=== PATIENT | female | born 1935 | race Caucasian/White ===

== ENCOUNTER 2019-11-19 14:08 | Outpatient (CLI) | payer MEDICARE, OTHER, SELFPAY ==
[2019-11-19 14:27] LABS: Basophils Percent Auto 0.3 % (0.2-1.2); Eosinophils Percent Auto 0.6 % (0-4.4); Hematocrit 36.8 % (37.0-47.0); Hemoglobin 12.4 g/dL (12.0-15.0); Immature Granulocyte Absolute 0.01 K/mm3 (0.00-0.031); Immature Granulocyte Percent A 0.2 % (0-0.5); Lymphocytes Absolute Auto 1.56 K/mm3 (0.9-3.2); Lymphocytes Percent Auto 24.5 % (18.3-44.2); Mean Corpuscular HGB Conc 33.7 g/dl (32-36); Mean Corpuscular Hemoglobin 31.6 pg (26-34); Mean Corpuscular Volume 93.9 fl (80-100); Mean Platelet Volume 8.9 fl (7.4-10.4); Monocytes Absolute Auto 0.4 K/mm3 (0.1-0.6); Monocytes Percent Auto 5.5 % (2.6-8.5); Neutrophils Absolute Auto 4.4 K/mm3 (1.3-6.7); Neutrophils Percent Auto 68.9 % (45.5-73.1); Platelet Count Result 179 k/mm3 (150-375); Red Blood Count 3.92 M/mm3 (4.2-5.4); Red Cell Distribution Width 12.6 % (11.5-14.5); White Blood Count 6.4 K/mm3 (4.5-10.0)
[2019-11-19 14:43] LABS: Alanine Aminotransferase 33 U/L (4-35); Albumin Level 4.2 g/dL (3.5-5.1); Alkaline Phosphatase 52 U/L (38-126); Aspartate Amino Transferase 43 U/L (14-36); Bilirubin,Total 0.5 mg/dL (0.2-1.3); Blood Urea Nitrogen 16 mg/dL (7-17); Calcium 8.9 mg/dL (8.4-10.2); Carbon Dioxide 23 mmol/L (22-30); Chloride 97 mmol/L (98-107); Estimated Glomerular Filt Rate 53; Glucose 160 mg/dL (65-105); Sodium 135 mmol/L (137-145)
== END 2019-11-19 14:09 | disposition home or self-care (01) ==
PROVIDERS: PCP Family Medicine; Visit Provider Physician Assistant
DX: E03.9 Hypothyroidism, unspecified (principal); R19.7 Diarrhea, unspecified; R53.83 Other fatigue; H40.1131 Primary open-angle glaucoma, bilateral, mild stage; E09.9 Drug or chemical induced diabetes mellitus without complications; T38.0X5A Adverse effect of glucocorticoids and synthetic analogues, initial encounter
CPT/HCPCS: 36415; 80053; 84443; 85025

== ENCOUNTER 2019-11-28 11:44 | Outpatient (CLI) | payer MEDICARE, OTHER, SELFPAY ==
[2019-11-28 12:48] LABS: Alanine Aminotransferase 34 U/L (4-35); Albumin Level 4.4 g/dL (3.5-5.1); Alkaline Phosphatase 60 U/L (38-126); Aspartate Amino Transferase 36 U/L (14-36); Bilirubin,Total 0.5 mg/dL (0.2-1.3); Blood Urea Nitrogen 22 mg/dL (7-17); Calcium 9.1 mg/dL (8.4-10.2); Carbon Dioxide 29 mmol/L (22-30); Chloride 96 mmol/L (98-107); Estimated Glomerular Filt Rate 53; Glucose 96 mg/dL (65-105); Potassium 4.6 mmol/L (3.4-5.0); Sodium 133 mmol/L (137-145)
[2019-11-28 12:59] LABS: Hemoglobin A1C 6.1 % (<5.7)
[2019-11-28 13:19] LABS: Thyroid Stimulating Hormone 0.385 uIU/mL (0.465-4.680)
== END 2019-11-28 11:45 | disposition home or self-care (01) ==
PROVIDERS: PCP Family Medicine; Visit Provider Physician Assistant
DX: E09.9 Drug or chemical induced diabetes mellitus without complications (principal); T38.0X5A Adverse effect of glucocorticoids and synthetic analogues, initial encounter; I10 Essential (primary) hypertension; E03.9 Hypothyroidism, unspecified
CPT/HCPCS: 36415; 80053; 83036; 84443

== ENCOUNTER 2021-04-06 11:12 | Outpatient (CLI) | payer MEDICARE, OTHER, SELFPAY ==
--- NOTE | ~2021-04-06 | XR_ITS ---
XR hip RT min 2V DATE: 04/06/2021 11:30 INDICATION: Fell on right hip last month. Right hip pain. TECHNIQUE: AP and lateral views of right hip COMPARISON: None FINDINGS: There is an intramedullary ade of the femoral shaft with 2 interlocking proximal screws and one distal interlocking screw. There is a healed fracture of the proximal shaft of the left femur. T here are some chronic corticated bone fragments at the lateral aspect of the right hip. No recent fracture or dislocation. There is severe osteoarthritis at the right hip joint. The pubic symphysis and sacroiliac joints are intact. Femoral artery calcification. IMPRESSION: Status post ORIF proximal right femoral shaft fracture by means of an intramedullary ade and proximal and distal interlocking screws Severe right hip osteoarthritis Reviewed, dictated and finalized at location A.
== END 2021-04-06 11:13 | disposition home or self-care (01) ==
PROVIDERS: PCP Family Medicine; Visit Provider Nurse Practitioner Family
DX: S70.01XA Contusion of right hip, initial encounter (principal); X58.XXXA Exposure to other specified factors, initial encounter; M16.11 Unilateral primary osteoarthritis, right hip
CPT/HCPCS: 73502

== ENCOUNTER 2022-11-09 08:52 | Outpatient (CLI) | payer MEDICARE, OTHER, SELFPAY ==
--- NOTE | ~2022-11-09 | PE_ITS ---
EXAMINATION: PET skull to mid thigh DATE: 11/09/2022 12:15 INDICATION: Multiple myeloma TECHNIQUE: Blood glucose level was 107 mg/dL. 10.341 mCi of 18-fluorodeoxyglucose (18-FDG) was admini stered i.v. Low dose computed tomography (CT) images were acquired from the base of the brain to the proximal thighs for attenuation correction and anatomic localization. Positron emission tomography (P ET) images were acquired in the same distribution beginning 63 minutes after injection. Images includ ing fused PET/CT images were reconstructed in axial, coronal, and sagittal planes. Automated exposure control technique was employed. The dose-length product was 942.81mGy-cm. COMPARISON: PET/CT dated 10/05/2005 FINDINGS: Head/neck: There is symmetric increased activity in the oral cavity, parotid glands, submandibular glands, pako ngeal muscles and ocular muscles without CT correlate, likely physiologic. There is increased uptake in the cervical spine associated with a C4-C7 instrumented posterior spinal fusion with bilateral jono tical ade and lateral/pedicle screws. This appears to span a C5 compression fracture. No evident asso ciated lytic bone lesions. No pathologically enlarged cervical lymphadenopathy or suspicious foci of increased FDG uptake in the visualized head or neck. Chest: Chronic elevation of the left hemidiaphragm. Small left pleural effusion. There is dependent atelecta sis in the bilateral lower lobes, left greater than right. Mild cardiomegaly. Atherosclerotic coronar y artery calcification and aortic valve calcification. No pericardial effusion. No pathologically enl arged or FDG avid thoracic lymphadenopathy. There is increased FDG uptake associated with relatively recent-appearing lateral left seventh and ei ghth rib fractures. There is additional increased FDG uptake with maximal SUV of the more anterior le ft sixth rib with maximal SUV of 4.6 which is without evident associated fracture or suspicious lytic or blastic bone lesions. FDG avid lytic lesion with maximal SUV of 5.0 at the right glenoid. There i s more diffuse somewhat heterogeneous increased FDG marrow uptake in the proximal metaphyses and prox imal diaphyses of the bilateral humeri with maximal SUV on the left of 4.6 and on the right of 4.9. T here is no corresponding lytic or blastic bone lesion however there is increased soft tissue density of the marrow which would be consistent with provided history of multiple myeloma. No abnormal increa sed FDG uptake associated with the T4 vertebral body where there is a chronic lucent lesion in the le ft side of the vertebral body which is been present since CT dated 10/03/2010 with normal T1 hyperinte nse fat saturating signal on MRI dated 09/18/2010 most likely representing a hemangioma. There is also no abnormal uptake associated with a T5 compression fracture with moderate anterior vertebral body he ight loss which is new since chest radiograph dated 02/13/2019. There is mild heterogeneous FDG uptake in the more caudal thoracic spine with more intense foci of uptake without evident corresponding lyt ic or blastic bone lesion in some of the lower thoracic vertebral bodies, the most prominent at T10 w here there is a maximal SUV of 5.7. There is no abnormal uptake at a lytic lesion at the T12 vertebra l body. Abdomen/pelvis/proximal thighs: Physiologic renal accumulation and excretion of FDG activity in the kidneys, bladder and along portio ns of ureters. There are couple subcentimeter hypodense likely proteinaceous/hemorrhagic cysts at the left kidney. Normal degree and heterogenous pattern of increased uptake throughout the liver without radiologic correlate or dominant FDG avid lesion. The gallbladder, pancreas, spleen and bilateral ad renal glands are normal. Mild to moderate uptake scattered throughout the bowels without radiologic c orrelate, also likely physiologic. There are few scattered div
[2022-11-09 09:41] LABS: Glucose Point of Care 107 mg/dl (65-105)
== END 2022-11-09 08:53 | disposition home or self-care (01) ==
PROVIDERS: PCP Family Medicine; Visit Provider Internal Medicine Medical Oncology
DX: C90.00 Multiple myeloma not having achieved remission (principal)
CPT/HCPCS: 78815; A9552

== ENCOUNTER 2022-12-07 08:33 | Outpatient (CLI) | payer MEDICARE, OTHER, SELFPAY ==
--- NOTE | ~2022-12-07 | XR_ITS ---
Lumbosacral Spine: AP and lateral views Clinical History: Pain COMPARISON: 10/19/2017 Findings: The normal lordotic curve is maintained. No acute fracture identified. Grade 1 anterolisthe sis of L4 over L5 is similar to prior exam. Grade 1 retrolisthesis of L2 over L3 is similar to prior exam. Grade 1 anterolisthesis of L3 over L4 similar to prior exam. There is severe degenerative disc narrowing throughout the lumbar spine. There is extensive facet arthropathy, especially from L3 throu gh S1. Atherosclerotic calcifications of aorta are present. The sacroiliac joints are normally outlin ed. Impression: Severe degenerative spondylosis of the lumbar spine, similar to prior exam. Multiple listheses in the lumbar spine, essentially unchanged from prior exam, as detailed above. Reviewed, dictated and finalized at [facility]. Impression: Severe degenerative spondylosis of the lumbar spine, similar to prior exam. Multiple listheses in the lumbar spine, essentially unchanged from prior exam, as detailed above.
--- NOTE | ~2022-12-07 | XR_ITS ---
EXAMINATION: XR sacrum coccyx min 2V INDICATION: Low back pain TECHNIQUE: Two views of the sacrum and coccyx are obtained on three radiographs. COMPARISON: Lumbar spine radiograph from today FINDINGS: Again noted are multiple listheses in the lumbar spine. No fracture is identified. There is antegrade intramedullary ade and interlocking intratrochanteric screw fixation of the femurs. There is mild osteoarthritis of the hips. Phleboliths are noted in the pelvis. IMPRESSION: 1. No acute osseous abnormality. Reviewed, dictated and finalized at location L.
== END 2022-12-07 08:34 | disposition home or self-care (01) ==
PROVIDERS: PCP Family Medicine; Visit Provider Physician Assistant
DX: R29.6 Repeated falls (principal); M47.896 Other spondylosis, lumbar region
CPT/HCPCS: 72100; 72220

== ENCOUNTER 2023-02-07 08:54 | Inpatient (IN) | payer MEDICARE, OTHER, SELFPAY ==
[2023-02-07] VITALS (30 sets, daily range): BP systolic 92–145; BP diastolic 50–92; PULSE 77–107; RESP 14–20; TEMP 36.2–37.3; O2SAT 85–100; BMI 24.5
--- NOTE | ~2023-02-07 | CT_ITS ---
EXAMINATION: CT chest abdomen pelvis w con DATE: 02/07/2023 10:47 INDICATION: Chest and abdominal injury. Left hip pain. Fall. TECHNIQUE: Computed tomography (CT) of the chest, abdomen, and pelvis was performed with 100 mL Omnip aque 350 intravenous contrast. Automated exposure control and iterative reconstruction technique were employed. The dose-length product was 605.96 mGy-cm. COMPARISON: CT chest 08/23/2016, CT abdomen 07/19/2016 FINDINGS: CHEST CT: The lungs demonstrate mild atelectasis. There is chronic mild elevation of left hemidiaphragm. There is a trace left pleural effusion. There are nodules in the thyroid measuring up to 8 mm, likely not c linically significant. The heart size is normal. There are coronary artery calcifications. The centra l pulmonary arteries are enlarged, consistent with pulmonary arterial hypertension. Aortic atheroscle rosis is noted. Again seen are chronic linear pulmonary emboli in the lower lobes. There are scattere d lytic lesions of bone. There is a healing fracture right second rib. There are healing is old heale d fracture left fifth rib. There are healing fractures of left sixth, seventh, and eighth ribs. There is a healing fracture of the manubrium of the sternum. There is a chronic compression fracture of T4 . There is a burst fracture of T5, likely subacute or chronic. ABDOMEN/PELVIS CT: The liver, gallbladder, are normal. Calcifications in the spleen are consistent with old granulomatou s disease. There is a 6 mm cystic lesion in the pancreas, likely benign. The adrenal glands are katherine l. There is cortical thinning of the kidneys. There are two 6 mm hyperdense masses in left kidney, to o small to characterize but probably benign. There is diverticulosis of the colon without evidence of diverticulitis. The appendix is normal. There is calcified atherosclerosis of the aorta and many of the other arteries. There is internal fixation of the proximal femora. There is severe right hip oste oarthritis and moderate left hip osteoarthritis. There are scattered lytic lesions of bone including right femoral head and left ilium. There is a large hematoma posterior to the proximal left femur in the left pelvic bones. There is a left inguinal hernia containing trace ascites. There is severe lumb ar spondylosis. IMPRESSION: 1. Large hematoma posterior to proximal left femur and the left pelvic bones. 2. Small chronic pulmonary emboli in the lower lobes. 3. Lytic lesions of bone with multiple healing pathologic fractures, consistent with multiple myeloma . Reviewed, dictated and finalized at location A. IMPRESSION: 1. Large hematoma posterior to proximal left femur and the left pelvic bones. 2. Small chronic pulmonary emboli in the lower lobes. 3. Lytic lesions of bone with multiple healing pathologic fractures, consistent with multiple myeloma.
--- NOTE | ~2023-02-07 | XR_ITS ---
EXAMINATION: XR humerus LT DATE: 02/07/2023 10:38 INDICATION: Left shoulder pain. Fall. TECHNIQUE: 2 views of left humerus were obtained. COMPARISON: None. FINDINGS: Bone alignment is normal. No fracture. There is moderate osteoarthritis of glenohumeral hang nt and mild osteoarthritis of acromioclavicular joint. IMPRESSION: 1. Polyarticular osteoarthritis. Reviewed, dictated and finalized at location A.
--- NOTE | ~2023-02-07 | US_ITS ---
Duplex Sonography of the bilateral lower extremities: Indication: Pulmonary embolus, swelling Sagittal and transverse B-mode images as well as color-flow imaging were performed on the right and l eft femoral and popliteal veins. B-mode examination was done without and with compression in the tra nsverse plane. There is good visualization of the bilateral common femoral, proximal profunda femora l, superficial femoral, greater saphenous, and popliteal veins. Normal flow was seen on color-flow im aging. Normal compressibility was demonstrated. Probable minimal intimal thickening along the distal left SFV. Visualized calf veins are patent bilaterally. Impression: No evidence of deep vein thrombosis involving either lower extremity. Reviewed, dictated and finalized at location M. Impression: No evidence of deep vein thrombosis involving either lower extremit y.
--- NOTE | ~2023-02-07 | CT_ITS ---
EXAMINATION: CT brain wo con DATE: 02/07/2023 10:47 INDICATION: Head injury. TECHNIQUE: Computed tomography (CT) of the head was performed without intravenous contrast. The mA wa s adjusted according to patient size. Iterative reconstruction technique was employed. The dose-lengt h product was 529.67 mGy-cm. COMPARISON: Head CT 03/06/17 FINDINGS: There is no intracranial hemorrhage, acute infarction, or abnormal intracranial mass lesion . There are scattered areas of low attenuation in the cerebral white matter. The ventricles are katherine l in size. There are likely changes of ocular lens replacement surgeries. There is mild mucosal thick ening in the paranasal sinuses. The mastoid air cells are normal. IMPRESSION: 1. Worsened moderate nonspecific cerebral white matter disease, which likely represents chronic small vessel ischemic disease. Reviewed, dictated and finalized at location A. IMPRESSION: 1. Worsened moderate nonspecific cerebral white matter disease, which likely re presents chronic small vessel ischemic disease.
--- NOTE | ~2023-02-07 | XR_ITS ---
EXAMINATION: XR shoulder LT min 2V DATE: 02/07/2023 10:37 INDICATION: Left shoulder pain. TECHNIQUE: 4 views of left shoulder were obtained. COMPARISON: None. FINDINGS: Bone alignment is normal. No fracture. There is moderate osteoarthritis of glenohumeral hang nt and mild osteoarthritis of acromioclavicular joint. There are changes of anterior fusion procedure in cervicothoracic spine. IMPRESSION: 1. Polyarticular osteoarthritis. Reviewed, dictated and finalized at location A.
--- NOTE | ~2023-02-07 | CT_ITS ---
EXAMINATION: CT cervical spine wo con DATE: 02/07/2023 10:47 INDICATION: Neck pain. Status post fall. TECHNIQUE: Computed tomography (CT) of the cervical spine was performed without intravenous contrast. The dose-length product was mGy-cm. Automated exposure control and iterative reconstruction techniqu e were employed. COMPARISON: None FINDINGS: There are fractures of the right C2 lamina in the left C2 lamina extending into the vertebr al body. These fractures have sclerotic margins suggesting they are chronic. Odontoid process is norm al. Craniovertebral junction is normal. There is severe cervical spondylosis at all cervical spinal l evels. There is advanced multilevel uncinate and facet hypertrophy. There are are changes of posterio r cervical spinal fusion at C4-C7. No paraspinal soft tissue abnormality. There is apical pleural thi ckening/scarring. There is vascular ectasia of the superior mediastinum on the right. IMPRESSION: 1. Nondisplaced fractures of C2 with sclerotic margins, likely chronic. 2: Severe cervical spondylosis. Reviewed, dictated and finalized at location B.
--- NOTE | ~2023-02-07 | XR_ITS ---
XR hip LT 2V w AP pelvis 02/07/2023 10:37 Indication: Status post recent fall. Left hip pain. Procedure: 2 views left femur Comparison: 03/24/2014 and 12/07/2022 Findings: There are screws bilaterally involving the femoral necks with intramedullary rods. 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 There is a healed proximal left femoral shaft fractur e. No acute fracture or traumatic malalignment. There is heterotopic ossification surrounding the pro ximal aspect of the left femur. There is severe lower lumbar spondylosis. Impression: 1: No acute fracture. Reviewed, dictated and finalized at location B. Impression: 1: No acute fracture.
--- NOTE | ~2023-02-07 | XR_ITS ---
EXAMINATION: XR chest 1V DATE: 02/07/2023 10:37 INDICATION: Weakness. Fall. TECHNIQUE: A single frontal view of the chest was obtained. COMPARISON: Chest 2 views 02/13/2019, PET/CT 11/09/2022 FINDINGS: There is chronic mild elevation of left hemidiaphragm. There is no pneumonia, pleural effus ion, or pneumothorax. The heart size is normal. IMPRESSION: 1. No acute cardiopulmonary disease. Reviewed, dictated and finalized at location A.
--- NOTE | 2023-02-07 09:27 | ECG_ITS ---
Measurements Intervals [place] Rate: 92 P: [place]: 0 QRS: -26 QRSD: 94 T: 22 QT: 364 QTc: 451 Interpretive Statements ATRIAL FIBRILLATION INCOMPLETE RIGHT BUNDLE BRANCH BLOCK BASELINE ARTIFACT- II, III, AVR ABNORMAL ECG NO PREVIOUS ECG AVAILABLE FOR COMPARISON Electronically Signed On 02-07-2023 9:53:24 CDT by Yousif Davis D.O.
[2023-02-07 09:45] LABS: Basophils Percent Auto 0.1 % (0.2-1.2); Eosinophils Percent Auto 0.3 % (0-4.4); Hematocrit 22.2 % (37.0-47.0); Immature Granulocyte Absolute 0.02 K/mm3 (0.00-0.031); Immature Granulocyte Percent A 0.3 % (0-0.5); Lymphocytes Absolute Auto 1.61 K/mm3 (0.9-3.2); Lymphocytes Percent Auto 23.5 % (18.3-44.2); Mean Corpuscular HGB Conc 30.2 g/dl (32-36); Mean Corpuscular Hemoglobin 31.8 pg (26-34); Mean Corpuscular Volume 105.2 fl (80-100); Mean Platelet Volume 10.1 fl (7.4-10.4); Monocytes Absolute Auto 0.5 K/mm3 (0.1-0.6); Monocytes Percent Auto 7.9 % (2.6-8.5); Neutrophils Absolute Auto 4.6 K/mm3 (1.3-6.7); Neutrophils Percent Auto 67.9 % (45.5-73.1); Platelet Count Result 168 k/mm3 (150-375); Red Blood Count 2.11 M/mm3 (4.2-5.4); Red Cell Distribution Width 17.8 % (11.5-14.5); White Blood Count 6.8 K/mm3 (4.5-10.0)
[2023-02-07 09:59] LABS: INR 2.6
[2023-02-07 10:00] LABS: Alkaline Phosphatase 40 U/L (38-126)
[2023-02-07 10:01] LABS: Alanine Aminotransferase 26 U/L (6-35); Albumin Level 2.9 g/dL (3.5-5.1); Anion Gap 6 mmol/L (8-16); Aspartate Amino Transferase 39 U/L (14-36); Bilirubin,Total 0.6 mg/dL (0.2-1.3); Blood Urea Nitrogen 24 mg/dL (7-17); Calcium 7.5 mg/dL (8.4-10.2); Carbon Dioxide 27 mmol/L (22-30); Chloride 102 mmol/L (98-107); Estimated CRCL calculation 37 ml/min; Estimated Glomerular Filt Rate > 60; Glucose 175 mg/dL (65-110); Potassium 4.3 mmol/L (3.4-5.0); Sodium 135 mmol/L (137-145)
[2023-02-07 10:24] LABS: Hemoglobin 6.7 g/dL (12.0-15.0)
--- NOTE | 2023-02-07 10:29 | ED.FALL ---
HPI - Fall General Chief Complaint: Fall <Jacklyn Badillo PA-C - Last Filed: 02/07/23 19:28> Stated Complaint: FALL/ HIP PAIN/ LOW BP <Jacklyn Badillo PA-C - Last Filed: 02/07/23 19:28> Time Seen by Provider: 02/07/23 09:57 <Jacklyn Badillo PA-C - Last Filed: 02/07/23 19:28> History of Present Illness HPI Narrative: 87 y/o F with a history of multiple myeloma and hypertension reports for evaluation after a fall that occurred yesterday. Patient states she was using her walker to get up from a chair, bent down to pick something up off the ground, became dizzy and fell to the ground. States she believes she hit her head on a dresser, no LOC. She is complaining of a dull headache, neck pain, left shoulder and humerus pain, left hip pain. Patient states she has been dizzy the past 2 days since she was prescribed prednisone. Patient reports she was taking a cancer pill , stopped it 1.5 weeks ago because it was not working and was prescribed prednisone to make her feel better . States since she started taking the prednisone she has been intermittently dizzy, worse with movement. The dizziness is not present when she is sitting still. States she has not taken the prednisone today because she believes this is what is making her dizzy. She reports eating and drinking normally. No vision changes, focal numbness or weakness, chest pain, shortness of breath, abdominal pain. <Jacklyn Badillo PA-C - Last Filed: 02/07/23 19:28> Related Data Home Medications: Home Medications Medication Instructions Recorded Confirmed amlodipine 5 mg tablet 5 mg PO DAILY 10/13/19 02/07/23 bimatoprost 0.01 % eye drops 1 drop ophthalmic (eye) DAILY PRN 10/13/19 02/07/23 (Anne-Marie) Dry Eyes methylphenidate HCl 5 mg tablet 10 mg PO BID 10/13/19 02/07/23 pantoprazole 40 mg tablet,delayed 40 mg PO DAILY 10/14/19 02/07/23 release aspirin 81 mg capsule,delayed 81 mg PO DAILY 02/07/23 02/07/23 release gabapentin 800 mg tablet 800 mg PO TID 02/07/23 02/07/23 metoprolol tartrate 25 mg tablet 20 mg PO QID 02/07/23 02/07/23 ondansetron HCl 4 mg tablet 4 mg PO QID PRN Nausea And Vomiting 02/07/23 02/07/23 oxycodone 5 mg tablet 10 mg PO Q8H PRN pain 02/07/23 02/07/23 paroxetine HCl 20 mg tablet 20 mg PO DAILY 02/07/23 02/07/23 prednisone 10 mg tablet 10 mg PO DAILY 02/07/23 02/07/23 rivaroxaban 10 mg tablet (Xarelto) 10 mg PO DAILY 02/07/23 02/07/23 tizanidine 2 mg tablet 2 mg PO QID PRN muscle spasms 02/07/23 02/07/23 zolpidem 5 mg tablet 5 mg PO HS 02/07/23 02/07/23 <Jacklyn Badillo PA-C - Last Filed: 02/07/23 19:28> Allergies/Adverse Reactions: Allergies Allergy/AdvReac Type Severity Reaction Status Date / Time VICKI Inhibitors Allergy Unknown unk Verified 11/08/22 10:04 <Jacklyn Badillo PA-C - Last Filed: 02/07/23 19:28> Review of Systems Review of Systems: CONSTITUTIONAL: Denies fever, chills EYES: Denies visual changes, redness, or discharge. ENT: Denies rhinorrhea, congestion, sore throat, or otalgia. CARDIOVASCULAR: Denies chest pain, palpitations, or edema. RESPIRATORY: Denies cough or dyspnea. GASTROINTESTINAL: Denies abdominal pain, nausea, vomiting, or diarrhea. GENITOURINARY: Denies dysuria or hematuria. SKIN: Denies rash or itching. MUSCULOSKELETAL: See HPI NEUROLOGIC: See HPI PSYCHIATRIC: Denies anxiety or depression. <Jacklyn Badillo PA-C - Last Filed: 02/07/23 19:28> [facility]LY [facility] Past Medical History Medical History: Medical History (Updated 02/07/23 @ 20:47 by Carissa Lao PA-C) Anticoagulant long-term use Cervical spine fracture (07/2022) C1, C2, C7 fractures. Chronic anticoagulation Chronic atrial fibrillation Chronic deep vein thrombosis (DVT) of both lower extremities Chronic pain syndrome Chronic pulmonary embolism Depression Essential hypertension Glaucoma Hypothyroidism Multiple myeloma Pulmonary hypertension <Jacklyn Badillo PA-C - Last Filed: 02/07/
[2023-02-07 10:53] LABS: Lipase 37 U/L (23-300); Magnesium 2.1 mg/dL (1.6-2.3)
[2023-02-07 10:59] LABS: Partial Thromboplastin Time 34.5 SECONDS (22.3-36.8)
[2023-02-07 11:01] LABS: Troponin I 0.013 ng/mL (0.000-0.034)
[2023-02-07 12:05] LABS: Appearance Urine Clear (Clear); Bacteria Urine None Seen /hpf; Bilirubin Urine Negative (Negative); Blood Urine Negative (Negative); Color Urine Dark Yellow (Yellow); Glucose Urine UA Negative (Negative); Ketones Urine Trace mg/dL (Negative); Leukocyte Esterase Ur Negative LEU/UL (Negative); Nitrate Urine Negative (Negative); Protein Urine Trace mg/dL (Negative); RBC Urine 0-2 /hpf (0-2); Specific Grav Ur 1.039 (1.001-1.035); Squamous Epithelial Cell Urine None seen /hpf (Few); WBC Urine 0-5 /hpf; pH Urine 5.5 (5.0-9.0)
[2023-02-07 12:06] LABS: Add Urine Microscopic? YES; Need Manual Microscopic REVIEWED
[2023-02-07] MEDS: SODIUM CHLORIDE 0.9% IV 250 ML 30 ML IV CONT ×2 (12:53→20:19)
[2023-02-07] MEDS: TUBING, BLOOD SET 1 EACH XX (12:53)
--- NOTE | 2023-02-07 14:44 | PM.CNGS ---
Assessment and Plan Assessment and plan (1) Traumatic hematoma of buttock: Code(s): S30.0XXA - Contusion of lower back and pelvis, initial encounter Status: Acute Assessment and Plan: Large intramuscular hematoma of the left buttock s/p ground-level fall yesterday. No active extravasation noted on CT and she is hemodynamically stable in the ER. She was found to be anemic on labs with a hemoglobin of 6.7. She is receiving a blood transfusion now. The hematoma is not infected and the overlying skin is intact and healthy. We would recommend to hold her anticoagulation and monitor the hematoma for now. Agree with transfusing the patient and monitoring serial labs. If there is any concern of continued active bleeding, then the patient would need to be transferred to a facility that has Interventional Radiology capabilities for embolization. No indication for surgical intervention at this time. 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 (3) Chronic atrial fibrillation: Code(s): I48.20 - Chronic atrial fibrillation, unspecified Status: Acute (4) Essential hypertension: Code(s): I10 - Essential (primary) hypertension Status: Acute Plan I have discussed the patient's case and plan of care with Dr. Catherine. History of Present Illness Consult details Consult date: 02/07/23 Reason for consult: other (Left hip hematoma) Requesting physician: Jacklyn Badillo PA-C Narrative: This is an 87-year-old female with a history of multiple myeloma, hypertension, and chronic atrial fibrillation on Xarelto, who we have been asked to see in surgical consultation for a left hip hematoma. She reports feeling slightly dizzy yesterday, therefore she was walking with her walker through her house. She tried to bend over and grab something off the floor and fell backwards into her entertainment center. She hit her left hip and fell to the ground. No loss of consciousness. She complains of a dull headache, neck pain, left shoulder/arm pain, and left hip/buttock pain after the fall. When she woke up this morning, her left buttock pain was much worse and she was unable to sit in a chair due to the pain. Pain improves when lying flat. Due to the worsening pain, she came into the ER for evaluation. Work-up in the ER showed CT evidence of a large intramuscular hematoma posterior to the proximal femur and the left pelvic bones. Incidentally noted was small chronic pulmonary emboli in the lower lobes, lytic lesions of the bone with multiple healing pathologic fractures c/w multiple myeloma. Cervical spine CT also showed nondisplaced fractures of C2, likely chronic. With questioning, the patient suffered a fall in July 2022 and had fractures of C1, 2, 7 with subsequent surgery. She healed well and no longer has any restrictions with recent follow-up with the neurosurgeon. Labs in the ER were significant for hemoglobin 6.7, hematocrit 22.2, INR 2.6, PT 30. She is currently receiving one unit of packed red blood cells in the ER. She is seen now with her at the bedside. She is hemodynamically stable. She reports last taking her Xarelto this morning. She has normal active range of motion of her left lower extremity, but this causes her pain. She is comfortable when lying flat. Review of Systems Review of Systems: All systems reviewed & are unremarkable except as noted in HPI and below PMFSH Past Medical History Medical History Anticoagulant long-term use Chronic atrial fibrillation Chronic deep vein thrombosis (DVT) of both lower extremities Depression Hx pulmonary embolism Multiple myeloma Primary open angle glaucoma (POAG) of both eyes, mild stage Surgical History Surgical History Status post foot surgery
[2023-02-07 15:10] LABS: Iron 79 ug/dL (37-170)
[2023-02-07 15:18] LABS: Percent Iron Saturation 31 % (20-50)
--- NOTE | 2023-02-07 15:22 | PC.NURSE ---
Regular lunch tray ordered at 15:22
[2023-02-07] MEDS: ACETAMINOPHEN 500 MG TABLET 1000 MG PO (15:27)
[2023-02-07 15:48] LABS: Folic Acid > 20.0 ng/mL (2.76->20)
--- NOTE | 2023-02-07 17:04 | PM.IMHP ---
H&P: HPI History of Present Illness Date/Time: 02/07/23 15:30 Chief Complaint: Dizziness and falls. Narrative: This is a very pleasant 87-year-old female with multiple myeloma, hypertension, hypothyroidism, and chronic atrial fibrillation on anticoagulation who presented to the emergency department via EMS from home for evaluation of dizziness and falls. She stopped taking oral chemotherapy within the last 7 to 10 days due to lack of response and she was prescribed prednisone 3 days ago for unclear reasons but she was told it was going to make her feel better. Since she started taking the prednisone she has felt weak and dizzy and she has had several falls. Two nights ago she got up to go the bathroom, was feeling dizzy, and she fell into her bedside table striking the right side of her leg which has a pretty significant bruise. Yesterday while ambulating with her walker she noticed a piece of paper on the floor which she attempted to picking supervisor however she became dizzy when she bent over and she fell forward into her china cabinet with her left side which in turn made her fall back onto her buttocks. She had some pain of the left buttock, arm, and shoulder at that time but she did not think she injured herself significantly. Since that time she has noticed increasing pain and swelling over the left buttock and she came in for evaluation. She denies loss of consciousness in the falls. She denies chest and pleuritic pain, palpitations, and shortness of breath. She denies recent change in medications. She has been eating and drinking as usual. Vital signs were stable on arrival to the emergency department. Labs were significant for hemoglobin and hematocrit of 6.7 and 22.2% respectively, PTT 30, INR 2.6, glucose 175. CT of the chest, abdomen, and pelvis showed a large hematoma posterior to the proximal left femur and the left pelvic bones, small chronic pulmonary emboli in the lower lobes, and lytic lesions with multiple healing pathologic fractures consistent with history of multiple myeloma. Brain CT did not show any acute findings. Cervical spine x-ray showed nondisplaced fractures of C2 with sclerotic margins indicating that they are likely chronic. She is not having any neck pain, weakness, and radiculopathy. She is being admitted in this setting for blood transfusion and surgery consult given the hematoma. Review of Systems Review of Systems: Twelve systems were reviewed and are negative except for as per HPI. [facility] Past Medical History Medical History (Updated 02/07/23 @ 20:47 by Carissa Lao PA-C) Anticoagulant long-term use Cervical spine fracture (07/2022) C1, C2, C7 fractures. Chronic anticoagulation Chronic atrial fibrillation Chronic deep vein thrombosis (DVT) of both lower extremities Chronic pain syndrome Chronic pulmonary embolism Depression Essential hypertension Glaucoma Hypothyroidism Multiple myeloma Pulmonary hypertension Surgical History Surgical History (Updated 02/07/23 @ 17:15 by Carissa Lao PA-C) History of cervical spinal surgery Surgical stabilization of C1, C2, and C7 following fracture sustained in a fall. History of foot surgery Family History Family History (Updated 02/07/23 @ 17:58 by yLdia De Oliveira RN) Sibling Family history of diabetes mellitus in first degree relative Cancer Mother Hypertension Father Family history of coronary artery disease Cerebrovascular accident Family history of rheumatoid arthritis Social History Social History (Updated 02/07/23 @ 20:37 by Carissa Lao PA-C) Social History: Surrogate medical decision maker: Allie Moody, spouse. Code status: Full code. Smoking status: Never smoker Alcohol intake: current Drinks per week: 1 Alcohol use details: social Substance use: never Lack of Transportation: No Lack of Food: Never True Current Housing: I Have Housing Concerned About Future Housing: No Difficulty Payin
--- NOTE | 2023-02-07 17:05 | ADMGEN ---
This patient, Ulises Moody, was admitted to 3 [facility] Surg Room 307-02. Report received from GIOVANNI Abad. Patient/family oriented to hospital policies and general routines including ID bracelet, bed and alarms, visiting hours, pain management, procedures, bathroom and other care routines, personal items, smoking policy, room service/diet, and visiting hours. Information on how to activate the Rapid Response Team has been discussed. Patient/Family are encouraged to report perceived risks to care and to ask questions if they do not understand what they are told or what they should do.
--- NOTE | 2023-02-07 19:43 | PC.NURSE ---
called to see if H&H needs rechecked per MOLINA Lao 1 unit prbc ordered for total of 2 today, then recheck H&H x2 hours after infusion.
[2023-02-07] MEDS: ACETAMINOPHEN 325 MG TABLET 650 MG PO (20:20)
--- NOTE | 2023-02-07 20:59 | PC.NURSE ---
pt taken to US
[2023-02-07] MEDS: GABAPENTIN 400 MG CAPSULE 800 MG PO (21:40)
[2023-02-07] MEDS: ZOLPIDEM TARTRATE (*CRX) 5 MG TABLET PO (21:40)
[2023-02-07] MEDS: TIZANIDINE HCL 2 MG TABLET PO (21:41)
[2023-02-07] MEDS: SODIUM CHLORIDE 0.9% IV 1,000 ML 100 ML IV CONT (21:42)
[2023-02-07] MEDS: oxyCODONE HCL (*CRX) 5 MG TAB IR 10 MG PO (21:45)
[2023-02-07 21:48] LABS: Glucose Point of Care 122 mg/dl (65-105)
--- NOTE | 2023-02-07 22:08 | PC.NURSE ---
tolerating blood well resting in bed continue prn pain medication as needed for pain
--- NOTE | 2023-02-07 22:14 | PC.NURSE ---
Metoprolol and Lumigan orders clarified with MOLINA Lao, pharmacy informed
--- NOTE | 2023-02-07 22:19 | PC.NURSE ---
straight cath 300 ml out
--- NOTE | 2023-02-07 22:32 | PC.NURSE ---
H&H timed for midnight tonight
[2023-02-07] MEDS: LATANOPROST 0.005% OP SOLN 2.5 ML BTL 1 DROP EACH EYE (23:29)
[2023-02-07] MEDS: METOPROLOL TARTRATE 25 MG TABLET PO (23:29)
[2023-02-08] VITALS (7 sets, daily range): BP systolic 119–141; BP diastolic 62–83; PULSE 60–80; RESP 14–20; TEMP 36.4–36.9; O2SAT 95–98
[2023-02-08 01:46] LABS: Hematocrit 27.7 % (37.0-47.0)
[2023-02-08] MEDS: LEVOTHYROXINE SODIUM 75 MCG TABLET PO (05:47)
[2023-02-08] MEDS: oxyCODONE HCL (*CRX) 5 MG TAB IR 10 MG PO (05:49)
[2023-02-08] MEDS: ACETAMINOPHEN 325 MG TABLET 650 MG PO (05:49)
[2023-02-08 06:30] LABS: Hematocrit 28.2 % (37.0-47.0); Mean Corpuscular HGB Conc 31.9 g/dl (32-36); Mean Corpuscular Hemoglobin 30.7 pg (26-34); Mean Corpuscular Volume 96.2 fl (80-100); Mean Platelet Volume 9.8 fl (7.4-10.4); Platelet Count Result 128 k/mm3 (150-375); Red Blood Count 2.93 M/mm3 (4.2-5.4); Red Cell Distribution Width 20.7 % (11.5-14.5); White Blood Count 5.3 K/mm3 (4.5-10.0)
[2023-02-08 06:55] LABS: Anion Gap 3 mmol/L (8-16); Blood Urea Nitrogen 21 mg/dL (7-17); Calcium 7.4 mg/dL (8.4-10.2); Carbon Dioxide 29 mmol/L (22-30); Chloride 104 mmol/L (98-107); Estimated CRCL calculation 37 ml/min; Estimated Glomerular Filt Rate > 60; Glucose 97 mg/dL (65-110); Magnesium 2.2 mg/dL (1.6-2.3); Sodium 136 mmol/L (137-145)
[2023-02-08 07:16] LABS: Cortisol Random 7.55 ug/dL
[2023-02-08 07:43] LABS: Glucose Point of Care 98 mg/dl (65-105)
[2023-02-08] MEDS: amLODIPine BESYLATE 5 MG TABLET PO (08:49)
[2023-02-08] MEDS: GABAPENTIN 400 MG CAPSULE 800 MG PO ×2 (08:49→13:55)
[2023-02-08] MEDS: ASPIRIN 81 MG ENTERIC TABLET PO (08:49)
[2023-02-08] MEDS: PARoxetine 20 MG TABLET PO (08:50)
[2023-02-08] MEDS: PANTOPRAZOLE 40 MG TABLET PO (08:50)
[2023-02-08] MEDS: predniSONE 10 MG TABLET PO (08:51)
[2023-02-08] MEDS: METOPROLOL TARTRATE 25 MG TABLET PO ×2 (08:51→13:55)
[2023-02-08] MEDS: methylPHENIDATE HCL (*CRX) 10 MG TABLET PO (08:53)
[2023-02-08 11:44] LABS: Glucose Point of Care 124 mg/dl (65-105)
--- NOTE | 2023-02-08 12:08 | PM.IMPN ---
Progress Note: A&P Assessment and Plan (1) Recurrent falls: Code(s): R29.6 - Repeated falls Status: Acute Assessment and Plan: Patient had a couple falls in the last 2 days which she attributes to lightheadedness from her medications. She has multiple bruises on exam and she was found to have a large hematoma posterior to the proximal left femur and left pelvic bones. No acute bony abnormalities were noted. Orthostatic vitals stable. She has been resumed on her anti-HTN. Stop Ambien. Hold muscle relaxants and narctics for now. On high dose Kecia which could be contributing to her dizziness. Continue for now but consider decreasing dose. Continue fall precautions. Monitor orthostatic vital signs. PT/OT consulted. (2) Traumatic hematoma of buttock: Qualifiers: Encounter type: initial encounter Qualified Code(s): S30.0XXA - Contusion of lower back and pelvis, initial encounter Code(s): S30.0XXA - Contusion of lower back and pelvis, initial encounter Status: Acute Assessment and Plan: Hgb 6.7 on admission. Surgery consulted by the ED provider. They recommend holding rivaroxaban at this time. No plans for surgery at this juncture. Monitor HH. (3) Profound anemia: Code(s): D64.9 - Anemia, unspecified Status: Acute Assessment and Plan: Hgb 6.7 on admission. Presumably from acute blood loss but she has MM and is on chemo so suspect a chronic underlying anemia. She was transfused 2U PRBC. Repeat Hgb 9.0 Follow for stability. Continue to hold Xarelto (4) Chronic atrial fibrillation: Code(s): I48.20 - Chronic atrial fibrillation, unspecified Status: Acute Assessment and Plan: Patient on anticoagulation for history of atrial fibrillation. EKG showing AFib with controlled rate. Rivaroxaban on hold given the above. lopressor resumed. (5) Chronic anticoagulation: Code(s): Z79.01 - [facility] (current) use of anticoagulants Status: Acute Assessment and Plan: Patient on anticoagulation for history of atrial fibrillation and hx of PE. She was noted to have chronic PEs in the lower lobes on CT. Venous Doppler ultrasounds negative for DVTs. Rivaroxaban on hold given the above. (6) Multiple myeloma: Code(s): C90.00 - Multiple myeloma not having achieved remission Status: Acute Assessment and Plan: Taken off of oral chemotherapy several weeks ago, now on prednisone. Patient states she was on a medication that was causing her lightheaded symptoms but unclear if she is referring to Prednisone. Continue Prednisone. CT scan does show lytic bone lesions with healing pathologic fractures. Plt count dropped but could be related to MM. Follow (7) Hyperglycemia: Code(s): R73.9 - Hyperglycemia, unspecified Status: Acute Assessment and Plan: A1c 5.0. Hyperglycemia related to stress and steroid-induced Plan DVT Prophylaxis - SCDs Code status - Full Subjective Date/time seen: 02/08/23 12:08 Interval history: 87yo female with multiple myeloma, hypertension, hypothyroidism, and chronic atrial fibrillation on anticoagulation who presented to the emergency department via EMS from home for evaluation of dizziness and falls.? Patient is on chemotherapy for multiple myeloma. She was switched from 1 agent to another due to a side effect of left arm swelling. Since being on the new chemotherapy agent, she has been feeling lightheaded. The lightheadedness occurs at all times and not specifically associated with standing. She took herself off the chemotherapy agent about 3 days ago. She believes this was the reason for her falling. She states she went to bend down to nut picker an item on the floor and start to fall. She ended up falling backwards hitting the back of her head and landing mostly on her left buttock. She was down for only few minutes but was able to get herself back up to a chair.
--- NOTE | 2023-02-08 12:28 | PM.PNGS ---
Progress Note: A&P Assessment and Plan (1) Traumatic hematoma of buttock: Code(s): S30.0XXA - Contusion of lower back and pelvis, initial encounter Status: Acute Assessment and Plan: Hematoma appears stable today. Hgb remained stable following blood transfusion. Okay from our standpoint to discharge patient today. Will have her follow-up with Dr. Catherine in 2 weeks. (2) Anticoagulant long-term use: Code(s): Z79.01 - [facility] (current) use of anticoagulants Status: Acute Assessment and Plan: Hold Xarelto for at least another week. Plan I have discussed the patient's case and plan of care with Dr. Catherine. Subjective Subjective Date/Time Seen: 02/08/23 12:28 Patient reports: no new complaints, feels better and pain is less Interval history: Patient feeling well today. No acute changes overnight. Eager to go home. She still has some soreness in her left buttock but feels it is better. No worsening swelling in the L buttock or hip. Review of Systems Review of Systems: ROS unchanged Exam Const: General: no acute distress Orientation/consciousness: patient oriented x3 Extrem: Other: Stable hematoma of left buttock/hip without expansion and slightly softer today. Overlying skin appears intact and healthy with only a small area of ecchymosis. Psych: Mental Status: mental status grossly normal Insight: Good insight present (Psych) Judgement: Good judgement present (Psych) Objective Data Vital Signs Vital Signs: Vital Signs - 24 hr 02/07/23 12:53 02/07/23 13:08 02/07/23 12:32 Temperature 97.8 F 97.6 F Pulse Rate 91 85 94 Respiratory Rate 18 18 19 Blood Pressure 120/76 117/78 141/86 H Pulse Oximetry 98 94 Oxygen Delivery 02/07/23 12:48 02/07/23 13:03 02/07/23 14:30 Temperature 97.7 F Pulse Rate 96 91 90 Respiratory Rate 17 14 16 Blood Pressure 120/76 117/78 145/88 H Pulse Oximetry 99 100 95 Oxygen Delivery 02/07/23 14:07 02/07/23 14:16 02/07/23 16:26 Temperature Pulse Rate 84 96 107 H Respiratory Rate 15 18 18 Blood Pressure 143/66 H 134/89 136/67 Pulse Oximetry 85 L 97 Oxygen Delivery 02/07/23 17:13 02/07/23 18:50 02/07/23 20:15 Temperature 97.2 F L 99.2 F Pulse Rate 100 100 Respiratory Rate 18 18 Blood Pressure 125/50 L 128/63 Pulse Oximetry 98 98 Oxygen Delivery Room Air 02/07/23 20:20 02/07/23 20:31 02/07/23 20:50 Temperature 99.2 F 97.8 F 97.8 F Pulse Rate 88 Respiratory Rate 18 Blood Pressure 130/68 Pulse Oximetry 97 Oxygen Delivery 02/07/23 21:30 02/07/23 20:00 02/07/23 22:31 Temperature 98.0 F 98.0 F Pulse Rate 93 93 98 Respiratory Rate 20 20 20 Blood Pressure 134/74 131/92 H Pulse Oximetry 96 96 98 Oxygen Delivery Room Air 02/07/23 23:29 02/08/23 06:00 02/08/23 08:00 Temperature 97.6 F 98.0 F Pulse Rate 88 60 68 Respiratory Rate 20 14 Blood Pressure 129/76 141/63 H Pulse Oximetry 97 98 Oxygen Delivery 02/08/23 08:30 02/08/23 08:31 02/08/23 08:51 Temperature Pulse Rate 76 72 70 Respiratory Rate Blood Pressure 130/62 131/83 Pulse Oximetry Oxygen Delivery Intake/Output Intake/Output: Intake & Output 02/05/23 02/06/23 02/07/23 02/08/23 23:59 23:59 23:59 23:59 Intake Total 1190 360 Output Total 450 Balance 740 360 Meds/Results Medications: Active Medications Generic Name Dose Route Start Last Admin Trade Name Beth PRN Reason Stop Dose Admin Acetaminophen 650 mg 02/07/23 15:11 02/08/23 05:49 Acetaminophen 325 Mg Tablet PO 650 mg Q4H PRN Administration Mild Pain (1-3) or Fever Amlodipine Besylate 5 mg 02/08/23 09:00 02/08/23 08:49 Amlodipine Besylate 5 Mg Tablet PO 5 mg DAILY SKYLER Administration Aspirin 81 mg 02/08/23 09:00 02/08/23 08:49 Aspirin 81 Mg Enteric Tablet PO 81 mg DAILY SKYLER Administration Dextrose 12.5 gm 02/07/23 20:50 Dextrose 50% 25 Gm/50 Ml Syringe IV PUSH
[2023-02-08 13:03] LABS: Hematocrit 32.6 % (37.0-47.0); Hemoglobin 10.5 g/dL (12.0-15.0)
[2023-02-08 16:25] LABS: Glucose Point of Care 147 mg/dl (65-105)
--- NOTE | 2023-02-08 16:47 | PM.DS ---
DS: Admitting Diagnosis Discharge Date 02/08/23 Admitting Diagnosis Dizzy and fall DS: Discharge Diagnosis Discharge Diagnosis (1) Recurrent falls: Code(s): R29.6 - Repeated falls Status: Acute (2) Traumatic hematoma of buttock: Qualifiers: Encounter type: initial encounter Qualified Code(s): S30.0XXA - Contusion of lower back and pelvis, initial encounter Code(s): S30.0XXA - Contusion of lower back and pelvis, initial encounter Status: Acute (3) Profound anemia: Code(s): D64.9 - Anemia, unspecified Status: Acute (4) Chronic atrial fibrillation: Code(s): I48.20 - Chronic atrial fibrillation, unspecified Status: Acute (5) Chronic anticoagulation: Code(s): Z79.01 - [facility] (current) use of anticoagulants Status: Acute (6) Multiple myeloma: Code(s): C90.00 - Multiple myeloma not having achieved remission Status: Acute (7) Hyperglycemia: Code(s): R73.9 - Hyperglycemia, unspecified Status: Acute DS: Summary Hospital Course Reason for hospitalization: 87yo female with multiple myeloma, hypertension, hypothyroidism, and chronic atrial fibrillation on anticoagulation who presented to the emergency department via EMS from home for evaluation of dizziness and falls.? Please see H&P for details. Hospital Course: Patient had a couple falls in the last 2 days which she attributes to lightheadedness from her medications. She has multiple bruises on exam. Chest x-ray showed no acute cardiopulmonary disease. Left shoulder x-ray shows polyarticular osteoarthritis. Left hip x-ray showed no acute fracture. CT the head shows worsening moderate nonspecific cerebral white matter disease. No acute findings. Cervical spine CT showed nondisplaced fracture of C2 with sclerotic margins felt to be a chronic fracture. She had severe cervical spondylosis. No acute findings noted. CT of the chest, abdomen and pelvis showed large hematoma posterior to the proximal left femur and left pelvic bones. She also had small chronic pulmonary emboli in the lower lobes. Lytic bone lesions noted with multiple healing pathologic fractures consistent with multiple myeloma. EKG showed atrial fibrillation with incomplete right bundle branch block and controlled heart rate. Bilateral lower extremity venous Dopplers were negative for DVT. Hemoglobin 6.7. She does have multiple myeloma so suspect she has underlying anemia but baseline is unclear. She was transfused and her hemoglobin climbed to the 9-10 range and remained stable. General surgery was consulted for the large buttock hematoma. Her Xarelto was stopped. Given her falls we did also stop the Ambien and held her muscle relaxants and narcotics. Gabapentin can contribute to her dizziness and this was discussed with the patient. PT and OT were consulted. Patient was able to walk in the halls with a walker with staff. She was noted to have hyperglycemia but A1c was 5.0. B12, folate and cortisol levels were normal. She was not iron deficient. UA was not consistent with UTI. She a clinical improvement. She overall did well was able be discharged home on 02/08/2023. Status at Discharge Cognitive/behavioral status at discharge: Stable Time Spent with Patient Time attestation: Total time spent providing and/or coordinating discharge services: 38 minutes Time spent: Greater than 30 minutes Exam Narrative: AF 98.0 131/83 70 14 98% ra Gen - NARD Chest - CTA bilaterally, nml RR CV - irregularly irregular Abd - Soft, NT/ND, Positive BS. no abd wall bruising Ext - No pedal edema Neuro - Alert and oriented. Nonfocal exam. Psych - Nml mood and affect Skin - Warm and dry. bruising noted right mid back without pain. Bruising noted left knee and bilateral thighs. Large firm mass left posterior buttock with overlying brusing. skin intact. DS: Data Data Completed and Pending L
--- NOTE | 2023-02-08 17:21 | PC.NURSE ---
Pt made away and educated of 1700 meds that were not given prior to DC . Pt states she will take them at home and usually takes at HS
== END 2023-02-08 17:25 | disposition home or self-care (01) | DRG 605 ==
LOC: ANHED 09:57 → ANH3MEDSUR 16:23
PROVIDERS: Emergency Medicine; Physician Assistant; Admitting Provider Internal Medicine; Emergency Provider Physician Assistant; PCP Family Medicine; Visit Provider Internal Medicine
DX: S30.0XXA Contusion of lower back and pelvis, initial encounter (principal); D62 Acute posthemorrhagic anemia; C90.00 Multiple myeloma not having achieved remission; I27.82 Chronic pulmonary embolism; I48.20 Chronic atrial fibrillation, unspecified; I10 Essential (primary) hypertension; I27.20 Pulmonary hypertension, unspecified; E83.51 Hypocalcemia; E03.9 Hypothyroidism, unspecified; M47.812 Spondylosis without myelopathy or radiculopathy, cervical region; R29.6 Repeated falls; G89.4 Chronic pain syndrome; H40.1131 Primary open-angle glaucoma, bilateral, mild stage; F32.A Depression, unspecified; W19.XXXA Unspecified fall, initial encounter; S12.101D Unspecified nondisplaced fracture of second cervical vertebra, subsequent encounter for fracture with routine healing; Z79.01 Long term (current) use of anticoagulants; Z86.718 Personal history of other venous thrombosis and embolism
CPT/HCPCS: 36415; 36430; 70450; 71045; 71260; 72125; 73030; 73060; 73502; 74177; 80048; 80053; 81001; 82533; 82607; 82728; 82746; 82948; 83036; 83540; 83550; 83690; 83735; 84484; 85014; 85018; 85025; 85027; 85610; 85730; 86850; 86900; 86901; 86920; 93005; 93970; 96360; 96361; 99285; A9270; G0378; J7030; J7050; J7512; P9016; Q9967

== ENCOUNTER 2023-04-02 06:30 | Inpatient (IN) | payer MEDICARE, OTHER, SELFPAY ==
[2023-04-02] VITALS (23 sets, daily range): BP systolic 122–153; BP diastolic 63–96; PULSE 74–114; RESP 14–22; TEMP 36.2–36.5; O2SAT 88–99; BMI 21.2
--- NOTE | ~2023-04-02 | XR_ITS ---
EXAMINATION: XR abdomen NG/feed tube insert DATE: 04/03/2023 16:16 INDICATION: Nasogastric tube placement. TECHNIQUE: An upright view of the abdomen was obtained. COMPARISON: Abdomen radiograph 04/02/2023 FINDINGS: The lower abdomen is excluded. The nasogastric tube tip is in the stomach. There are dilate d loops of small bowel. IMPRESSION: 1. Nasogastric tube tip in the stomach. 2. Dilated small bowel, consistent with small bowel obstruction. Reviewed, dictated and finalized at location A.
--- NOTE | ~2023-04-02 | CT_ITS ---
EXAMINATION: CT diagnostic chest wo con DATE: 04/02/2023 11:11 INDICATION: Cough. Pneumonia. TECHNIQUE: Computed tomography (CT) of the chest was performed without intravenous contrast. Automate d exposure control and iterative reconstruction technique were employed. Exam dose: 113.42 mGy-cm to kit exam DLP. COMPARISON: 04/02/2023 AP chest 02/03/2023 CT chest abdomen pelvis FINDINGS: Cardiomegaly. There are calcifications at the aortic valve. No hilar or mediastinal mass lesion or lymphadenopathy is evident. No pericardial effusion. There is great vessel calcification in addition to extensive thoracic aortic calcification. No thorac ic aortic aneurysm. Coronary artery calcifications. There is elevation of the left leaf of the diaphragm. There is left lower lobe infiltrate/atelectasis. There has atelectasis at the base of the lingula. Th ere is minimal atelectasis at the base of the middle lobe. There is patchy infiltrate in the superior segment of the right lower lobe and right basilar infiltra te and/or atelectasis. Included upper abdominal structures including adrenal glands are unremarkable. Status post posterior cervical spine surgical fusion. Number degenerative disc disease of the lower c ervical spine. Old healed right rib fractures. Old healed left anterior fifth rib fracture. Recent anterolateral left seventh and eighth rib fractures. Changes of the thoracic spine. Mild anterior wedge compression fracture deformity of T4. Prominent burst fracture deformity of T5 Severe degenerative disc disease at T12-L1 with associated prominent lower T12 sclerosis and some genaro ency. IMPRESSION: Recent left anterolateral 7th and 8th rib fractures, probably responsible for bibasilar atelectasis and elevated left diaphragm. Bilateral pulmonary infiltrates; cannot exclude pneumonia or aspiration pneumonitis Reviewed, dictated and finalized at Location A. Reviewed, dictated and finalized at location B. IMPRESSION: Recent left anterolateral 7th and 8th rib fractures, probably resp onsible for bibasilar atelectasis and elevated left diaphragm. Bilateral pulmonary infiltrates; cannot exclude pneumonia or aspiration pneumon itis
--- NOTE | ~2023-04-02 | CT_ITS ---
Non-contrast CT scan of the Abdomen and Pelvis Clinical indication: Abdominal distention Technique: 2.5 mm axial scans were obtained through the abdomen and pelvis without intravenous or or al contrast. Dose reduction technique was used on this scan by utilizing automated exposure control a nd iterative reconstruction technique. The dose-length product (DLP) was 366.47 mGy-cm. COMPARISON: 02/07/2023 Findings: Images through the lung bases reveal small right pleural effusion. There is patchy bibasil ar consolidation, predominantly dependently at the lung bases. Cardiomegaly noted. There is no evidence of renal or ureteral calculi. The kidneys and the ureters are nondilated. The liver, spleen, pancreas, gallbladder, and adrenals appear normal. There are atherosclerotic calci fications of the aorta. Stomach and multiple proximal small bowel loops are prominently dilated. There is a transition point involving a focal herniated small bowel loop, with an 8 low lying anterior ventral hernia just left o f midline approximately the level of the left hip joint (axial image 147). Small bowel loops and larg e bowel distal to the hernia are decompressed. A focal herniated small bowel loop is also distended. Images through the pelvis were performed. There is no evidence of ascites or lymphadenopathy. Urinary bladder unremarkable. No adnexal mass evident. Severe degenerative lumbar spondylosis noted. Impression: Small bowel obstruction, with transition point related to a low-lying ventral hernia left of midline. The focal herniated small bowel loop is also distended. Correlate for incarceration of the hernia. S urgical consultation advised. Patchy bibasilar pulmonary consolidation with small left pleural effusion. Correlate for pulmonary ed abdirizak/atelectasis versus pneumonia. Reviewed, dictated and finalized at location M. Impression: Small bowel obstruction, with transition point related to a low-lying ventral h ernia left of midline. The focal herniated small bowel loop is also distended. Correlate for incarceration of the hernia. Surgical consultation advised. Patchy bibasilar pulmonary consolidation with small left pleural effusion. Anselmo elate for pulmonary edema/atelectasis versus pneumonia.
--- NOTE | ~2023-04-02 | XR_ITS ---
XR chest 1V portable 04/08/2023 10:04 Indication: Pneumonia. Cough. Procedure: AP portable chest Comparison: Findings: Left basilar airspace consolidation. Elevated left diaphragm. Small pleural effusions. Card iomegaly. No edema or pneumothorax. Impression: 1: Left basilar airspace consolidation may represent atelectasis and/or pneumonia. 2: Small pleural effusions. 3: Cardiomegaly. Reviewed, dictated and finalized at location A. Impression: 1: Left basilar airspace consolidation may represent atelectasis and/or pneumon ia. 2: Small pleural effusions. 3: Cardiomegaly.
--- NOTE | ~2023-04-02 | US_ITS ---
EXAMINATION: US renal BI DATE: 04/02/2023 18:51 INDICATION: acute kidney injury TECHNIQUE: Multiple grayscale and Doppler ultrasound images of the kidneys were obtained. COMPARISON: None. FINDINGS: The right kidney measures 8.6 x 4.5 x 4.7 cm. The left kidney measures 8.9 x 4.6 x 4.7 cm. The kidney s demonstrate normal parenchymal echogenicity. There is no hydronephrosis. The bladder is normal. IMPRESSION: Unremarkable renal sonogram findings. Reviewed, dictated and finalized at location K.
--- NOTE | ~2023-04-02 | XR_ITS ---
EXAMINATION: XR chest 1V portable DATE: 04/02/2023 08:06 INDICATION: Hypoxia. Weakness. Bradycardia. TECHNIQUE: A single frontal view of the chest was obtained. COMPARISON: Chest single view 02/07/2023 FINDINGS: There is mild elevation of left hemidiaphragm. There is mild atelectasis at the lung bases. No pleural effusion or pneumothorax. Cardiomegaly is noted. There are changes of posterior fusion pr ocedure in cervical spine. IMPRESSION: 1. Mild atelectasis at the lung bases. 2. Cardiomegaly. Reviewed, dictated and finalized at location A.
--- NOTE | ~2023-04-02 | CT_ITS ---
EXAMINATION: CT brain wo con DATE: 04/02/2023 07:59 INDICATION: Head injury. TECHNIQUE: Computed tomography (CT) of the head was performed without intravenous contrast. The mA wa s adjusted according to patient size. Iterative reconstruction technique was employed. The dose-lengt h product was 605.33 mGy-cm. COMPARISON: Head CT 02/07/2023 FINDINGS: There are scattered areas of low attenuation in the cerebral white matter. There is no intr acranial hemorrhage, acute infarction, or abnormal intracranial mass lesion. The ventricles are katherine l in size. There are likely changes of ocular lens replacement surgeries. There is mild mucosal thick ening in the paranasal sinuses. There is sclerosis of the cisneros of right sphenoid sinus, consistent w ith chronic sinusitis. The mastoid air cells are normal. There is cerumen in the left external audito ry canal. IMPRESSION: 1. Stable moderate nonspecific cerebral white matter disease, which likely represents chronic small v essel ischemic disease. Reviewed, dictated and finalized at location A. IMPRESSION: 1. Stable moderate nonspecific cerebral white matter disease, which likely repr esents chronic small vessel ischemic disease.
--- NOTE | ~2023-04-02 | XR_ITS ---
EXAM: XR abdomen/kub 1V DATE: 04/02/2023 22:19 HISTORY: abdominal distention, constipation . COMPARISON: CT CAP 02/07/2023; KUB 06/12/2007. FINDINGS: Lung bases not well visualized. No organomegaly. Multiple loops of dilated small bowel ove rlying the mid upper abdomen. Little if any intraluminal gas is present in the distal bowel. Severe l umbar degenerative disc disease. Osteoarthritis of the SI joints, hips, and pubic symphysis. Heteroto pic bone formation versus old fracture fragments at the bilateral hips. Partially visualized, uncompl icated appearing bilateral femoral hardware. Scattered vascular calcifications. IMPRESSION: Radiographic findings concerning for small bowel obstruction. Recommend CT of the abdomen and pelvis with contrast for further evaluation. Results reported telephonically to Dedrick Montoya RN by Dr. Johnson at 10:48 PM on 04/02/2023. Reviewed, dictated and finalized at location K. IMPRESSION: Radiographic findings concerning for small bowel obstruction. Recom mend CT of the abdomen and pelvis with contrast for further evaluation. Results reported telephonically to Dedrick Montoya RN by Dr. Johnson at 10:48 PM on 04/02/2023.
--- NOTE | ~2023-04-02 | CT_ITS ---
EXAMINATION: CT cervical spine wo con DATE: 04/02/2023 07:59 INDICATION: Head injury. TECHNIQUE: Computed tomography (CT) of the cervical spine was performed without intravenous contrast. Automated exposure control and iterative reconstruction technique were employed. The dose-length pro duct was 143.29 mGy-cm. COMPARISON: CT cervical spine 02/07/2023 FINDINGS: There is 7 degrees dextrocurvature of cervical spine. Again seen is an old nondisplaced com minuted fracture deformity of C2. There is 2 mm anterolisthesis of C4 on C5. There are changes of pos terior fusion procedure from C4 to C7 with instrumentation. Vertebral body heights are normal. There is severely decreased disc height from C2-C3 through C6-C7. The following disc levels are specificall y discussed: C2-C3: There is mild bilateral uncovertebral joint osteoarthritis. There is severe bilateral facet ruth int osteoarthritis. There is mild bilateral neural foraminal stenosis. There is mild central canal st enosis. C3-C4: There is moderate right and severe left uncovertebral joint osteoarthritis. There is severe ri ght facet joint osteoarthritis. There is ankylosis of left facet joint with severe hypertrophy. There is mild right and severe left neural foraminal stenosis. There is mild central canal stenosis. C4-C5: There is severe bilateral uncovertebral joint osteoarthritis. There is severe bilateral facet joint osteoarthritis. There is mild bilateral neural foraminal stenosis. There is mild central canal stenosis. C5-C6: There is severe right and moderate left uncovertebral joint osteoarthritis. There is severe bi lateral facet joint osteoarthritis. There is mild bilateral neural foraminal stenosis. There is mild central canal stenosis with posterior decompression. C6-C7: There is moderate and severe left uncovertebral joint osteoarthritis. There is severe right fa cet joint osteoarthritis. There is mild bilateral neural foraminal stenosis. There is no central giovani l stenosis. C7-T1: There is no uncovertebral joint osteoarthritis. There is severe bilateral facet joint osteoart hritis. There is mild bilateral neural foraminal stenosis. There is no central canal stenosis. IMPRESSION: 1. Chronic C2 fracture deformity, unchanged from 02/07/23. 2. Severe cervical spondylosis. 3. Posterior fusion procedure from C4 to C7. Reviewed, dictated and finalized at location A.
--- NOTE | 2023-04-02 07:06 | ECG_ITS ---
Measurements Intervals [place] Rate: 111 P: CA: 0 QRS: -19 QRSD: 90 T: 113 QT: 359 QTc: 489 Interpretive Statements ATRIAL FIBRILLATION WITH RAPID VENTRICULAR RESPONSE BORDERLINE R WAVE PROGRESSION, ANTERIOR LEADS NONSPECIFIC ST & T-WAVE ABNORMALITY- ANTERIOR LEADS BASELINE ARTIFACT- I, III, AVR, AVL, AVF, V1-V6 ABNORMAL ECG COMPARED TO ECG 02/07/2023 09:47:14 HEART RATE HAS INCREASED Electronically Signed On 04-02-2023 8:13:45 CDT by Yousif Davis D.O.
--- NOTE | 2023-04-02 08:11 | ED.GENADULT ---
HPI - General Adult General Chief complaint: Weakness Stated complaint: weak Time Seen by Provider: 04/02/23 07:06 Source: patient, family () and RN notes reviewed Mode of arrival: ambulatory Limitations: clinical condition History of Present Illness HPI narrative: This is an 87 year old female who presents from home for evaluation of weakness. Patient states she fell backwards on Sunday. Her is at bedside to assist with history. He states patient fell backwards while working in her garden on Sunday but she seemed Fine. He states they thought she may have overworked herself on Sunday because she has had progressive weakness since Sunday. Patient denies headache, nausea, vomiting. She does report a cough. Patient poor historian. Her states she was taken off her blood thinner a couple weeks ago but he is not sure why Related Data Home Medications Medication Instructions Recorded Confirmed amlodipine 5 mg tablet 5 mg PO DAILY 10/13/19 04/02/23 bimatoprost 0.01 % eye drops 1 drop ophthalmic (eye) DAILY PRN 10/13/19 04/02/23 ([place]) Dry Eyes methylphenidate HCl 5 mg tablet 10 mg PO BID 10/13/19 04/02/23 pantoprazole 40 mg tablet,delayed 40 mg PO DAILY 10/14/19 04/02/23 release gabapentin 800 mg tablet 800 mg PO TID 02/07/23 04/02/23 metoprolol tartrate 25 mg tablet 20 mg PO QID 02/07/23 04/02/23 ondansetron HCl 4 mg tablet 4 mg PO QID PRN Nausea And Vomiting 02/07/23 04/02/23 paroxetine HCl 20 mg tablet 20 mg PO DAILY 02/07/23 04/02/23 prednisone 10 mg tablet 10 mg PO DAILY 02/07/23 04/02/23 tizanidine 2 mg tablet 2 mg PO QID PRN muscle spasms 02/07/23 04/02/23 zolpidem 5 mg tablet 5 mg PO HS 04/02/23 04/02/23 Allergies Allergy/AdvReac Type Severity Reaction Status Date / Time VICKI Inhibitors Allergy Unknown unk Verified 04/02/23 17:34 Review of Systems Constitutional: Constitutional: Reports fatigue and Reports weakness Cardiovascular: Cardiovascular: Denies syncope, Denies rapid heart rate, Denies irregular heart rhythm, Denies leg edema and Denies dyspnea Respiratory: Respiratory: Reports chest congestion, Reports cough, Denies hemoptysis, Denies excessive phlegm production and Denies dyspnea Gastrointestinal: Gastrointestinal: Denies abdominal pain, Denies hematochezia, Denies diarrhea and Denies vomiting Genitourinary: Genitourinary: Denies hematuria and Denies dysuria Musculoskeletal: Musculoskeletal: Denies joint swelling, Denies loss of height and Denies muscle weakness Neurologic: Denies syncope, Denies focal weakness and Denies weakness PMFSH Past Medical History Medical History (Updated 04/02/23 @ 17:50 by Gini Tee MD) Anticoagulant long-term use Cervical spine fracture (07/2022) C1, C2, C7 fractures. 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 History of foot surgery Family History Family History Sibling Family history of diabetes mellitus in first degree relative Cancer Mother Hypertension Father Family history of coronary artery disease Cerebrovascular accident Family history of rheumatoid arthritis Social History Social History Social History: Surrogate medical decision maker: Allie Moody, spouse. Code status: Full code. Smoking status: Never smoker Second hand tobacco smoke exposure: No Alcohol intake: current Drinks per week: 2 Alcohol use details: social Substance use: never S
[2023-04-02 08:40] LABS: Alveolar/Arterial O2 Gradient 75.4 mmHg; Base Excess ABG 9.2 mEq/l (+/-2.0); Carboxyhemoglobin 1.7 % THb (0-2.0); Fractional Inspired Oxygen 28 %; HCO3 ABG 33.1 mEq/l (22.0-26.0); Methemoglobin ABG 0.3 %THb (0-1.5); Oxygen Saturation ABG 96.1 % (95.0-100.0); Oxyhemoglobin 92.6 % THb (90.0-100.0); PO2 ABG 74.7 mmHg (80.0-100.0); PO2 FiO2 Ratio Arterial Blood 2.67 %; Reduced Hemoglobin 5.4 %THb (0-5.0); Total Hemoglobin 13.8 g/dL (12.0-18.0)
[2023-04-02 08:58] LABS: Basophils Percent Auto 0.2 % (0.2-1.2); Eosinophils Percent Auto 0.2 % (0-4.4); Hematocrit 40.6 % (37.0-47.0); Immature Granulocyte Absolute 0.01 K/mm3 (0.00-0.031); Immature Granulocyte Percent A 0.2 % (0-0.5); Lymphocytes Percent Auto 12.1 % (18.3-44.2); Mean Corpuscular Hemoglobin 32.7 pg (26-34); Mean Corpuscular Volume 102.3 fl (80-100); Mean Platelet Volume 9.7 fl (7.4-10.4); Monocytes Absolute Auto 0.3 K/mm3 (0.1-0.6); Monocytes Percent Auto 5.2 % (2.6-8.5); Neutrophils Absolute Auto 4.8 K/mm3 (1.3-6.7); Neutrophils Percent Auto 82.1 % (45.5-73.1); Platelet Count Result 226 k/mm3 (150-375); Red Blood Count 3.97 M/mm3 (4.2-5.4); White Blood Count 5.8 K/mm3 (4.5-10.0)
[2023-04-02 09:06] LABS: Lactic Acid Reflex 1.8 mmol/L (0.7-2.0)
[2023-04-02 09:08] LABS: INR 1.3; Prothrombin Time 17.3 Seconds (11.1-14.7)
[2023-04-02 09:09] LABS: Alanine Aminotransferase 43 U/L (6-35); Albumin Level 3.8 g/dL (3.5-5.1); Alkaline Phosphatase 50 U/L (38-126); Anion Gap 5 mmol/L (8-16); Aspartate Amino Transferase 39 U/L (14-36); Bilirubin,Total 1.3 mg/dL (0.2-1.3); Blood Urea Nitrogen 58 mg/dL (7-17); Calcium 10.1 mg/dL (8.4-10.2); Carbon Dioxide 38 mmol/L (22-30); Chloride 91 mmol/L (98-107); Estimated CRCL calculation 22 ml/min; Estimated Glomerular Filt Rate 36; Glucose 139 mg/dL (65-110); Partial Thromboplastin Time 24.2 SECONDS (22.3-36.8); Potassium 4.3 mmol/L (3.4-5.0); Sodium 134 mmol/L (137-145)
[2023-04-02 09:09] LABS: Device NASAL CANNULA; Modified Allen's Test Pass; Site Drawn LEFT RADIAL; pH ABG 7.514 (7.350-7.450)
[2023-04-02 09:17] LABS: Magnesium 2.3 mg/dL (1.6-2.3)
[2023-04-02 09:19] LABS: Troponin I < 0.012 ng/mL (0.000-0.034)
[2023-04-02 09:19] LABS: Influenza A QL RT-PCR Negative (Negative); Influenza B QL RT-PCR Negative (Negative); SARS-CoV-2 RNA PCR Negative (Negative)
[2023-04-02 09:28] LABS: NT Pro B Type Natriuretic Pept 2820 pg/mL (19.9-100)
[2023-04-02 10:08] LABS: Appearance Urine Clear (Clear); Bacteria Urine None Seen /hpf; Bilirubin Urine Negative (Negative); Blood Urine 1+ (Negative); Color Urine Dark Yellow (Yellow); Glucose Urine UA Negative (Negative); Ketones Urine Negative (Negative); Leukocyte Esterase Ur Negative LEU/UL (Negative); Need Manual Microscopic Reviewed; Nitrate Urine Negative (Negative); Protein Urine 1+ mg/dL (Negative); Specific Grav Ur 1.027 (1.001-1.035); Squamous Epithelial Cell Urine Occasional /hpf (Few); WBC Urine 0-5 /hpf
[2023-04-02 10:09] LABS: Add Urine Microscopic? YES
[2023-04-02] MEDS: LACTATED RINGERS 1,000 ML 999 ML IV CONT (10:17)
[2023-04-02] MEDS: dilTIAZem HCl INJ 25 MG/5 ML VIAL 10 MG IV PUSH (10:52)
[2023-04-02] MEDS: AZITHROMYCIN 500 MG/NS 250 ML 500 MG/250 ML BAG 250 MG IVPB (11:57)
[2023-04-02] MEDS: ONDANSETRON INJ 4 MG/2 ML VIAL IV PUSH (13:08)
[2023-04-02] MEDS: SODIUM CHLORIDE 0.9% IV 1,000 ML 125 ML IV CONT (13:08)
--- NOTE | 2023-04-02 16:49 | PM.IMHP ---
H&P: HPI History of Present Illness Date/Time: 04/02/23 16:00 Chief Complaint: Fall. Narrative: This is an 87-year-old female with multiple medical problems including history of deep venous thrombosis, pulmonary embolism, chronic atrial fibrillation no longer on anticoagulation with recent hospitalization for acute on chronic anemia requiring transfusion and left buttock hematoma, hypertension, hypothyroidism, multiple myeloma, and other comorbidities who presented to the emergency department via private vehicle from home for evaluation after a fall. The patient provides the following history; her provides additional information with the patient's permission. She was working in the garden on Sunday when she lost her balance, fell backwards, and struck her head on the ground. She seemed fine at that time and she thought the fall was probably related to the fact that she was over working herself. Since that time she has felt increasingly weak. Aside from a cough which has been occasionally productive of light yellow sputum, she has no specific complaints. With further questioning she does admit that her appetite has been poor and she has had a decrease in oral intake due to nausea. She endorses chills but she denies fever and sweats. She also denies headache, neck ache, sinus congestion, sore throat, chest pain, shortness a breath, vomiting, diarrhea, and dysuria. No sick contacts. she was afebrile on arrival to the ED with stable blood pressures. She was in atrial fibrillation with rapid ventricular response and her heart rate has improved with an IV bolus of diltiazem. CT of the head and neck did not show any acute findings. Chest CT showed recent left 7th and 8th rib fractures and bilateral pulmonary infiltrates which may be pneumonia or aspiration pneumonitis. SpO2 dipped to 88% on room air and she is currently on 3 L nasal cannula. Labs showed evidence of and acute kidney injury with a BUN and creatinine of 58 and 1.40 respectively, sodium 134, chloride 91, carbon dioxide 38. Total protein was high at 11.0 and her hemoglobin was within normal limits which is unusual for her and is likely that she is dehydrated. In the ED she was given a L bolus of crystalloids and she was started on azithromycin and ceftriaxone for possible pneumonia. She is being admitted to the IMU for further treatment and evaluation. Review of Systems Review of Systems: Twelve systems were reviewed and are negative except for as per HPI. [facility] Past Medical History Medical History Anticoagulant long-term use Cervical spine fracture (07/2022) C1, C2, C7 fractures. 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 History of foot surgery Family History Family History Sibling Family history of diabetes mellitus in first degree relative Cancer Mother Hypertension Father Family history of coronary artery disease Cerebrovascular accident Family history of rheumatoid arthritis Social History Social History Social History: Surrogate medical decision maker: Allie Moody, spouse. Code status: Full code. Smoking status: Never smoker Second hand tobacco smoke exposure: No Alcohol intake: current Drinks per week: 1 Alcohol use details: social Substance use: never Lack of Transportation: No Lack of Food: Never True Current Housing: [facility]
--- NOTE | 2023-04-02 17:25 | ADMGEN ---
This patient, Ulises Moody, was admitted to IMU Room 214-01. Patient/family oriented to hospital policies and general routines including ID bracelet, bed and alarms, visiting hours, pain management, procedures, bathroom and other care routines, personal items, smoking policy, room service/diet, and visiting hours. Information on how to activate the Rapid Response Team has been discussed. Patient/Family are encouraged to report perceived risks to care and to ask questions if they do not understand what they are told or what they should do.
[2023-04-02 18:26] LABS: Glucose Point of Care 140 mg/dl (65-105)
[2023-04-02 21:20] LABS: Glucose Point of Care 136 mg/dl (65-105)
[2023-04-02] MEDS: SODIUM CHLORIDE 0.9% IV 1,000 ML 100 ML IV CONT (21:57)
[2023-04-03] VITALS (19 sets, daily range): BP systolic 127–150; BP diastolic 63–80; PULSE 69–114; RESP 18–22; TEMP 36.1–36.8; O2SAT 92–99; BMI 20.9
[2023-04-03 05:16] LABS: Eosinophils Percent Auto 0.2 % (0-4.4); Hematocrit 34.1 % (37.0-47.0); Hemoglobin 10.8 g/dL (12.0-15.0); Immature Granulocyte Absolute 0.02 K/mm3 (0.00-0.031); Immature Granulocyte Percent A 0.4 % (0-0.5); Lymphocytes Absolute Auto 0.68 K/mm3 (0.9-3.2); Lymphocytes Percent Auto 13.8 % (18.3-44.2); Mean Corpuscular HGB Conc 31.7 g/dl (32-36); Mean Corpuscular Hemoglobin 32.5 pg (26-34); Mean Corpuscular Volume 102.7 fl (80-100); Monocytes Absolute Auto 0.1 K/mm3 (0.1-0.6); Monocytes Percent Auto 2.6 % (2.6-8.5); Neutrophils Absolute Auto 4.1 K/mm3 (1.3-6.7); Platelet Count Result 162 k/mm3 (150-375); Red Blood Count 3.32 M/mm3 (4.2-5.4); Red Cell Distribution Width 17.7 % (11.5-14.5); White Blood Count 4.9 K/mm3 (4.5-10.0)
[2023-04-03 05:44] LABS: Alanine Aminotransferase 33 U/L (6-35); Albumin Level 3.4 g/dL (3.5-5.1); Alkaline Phosphatase 45 U/L (38-126); Anion Gap 2 mmol/L (8-16); Aspartate Amino Transferase 29 U/L (14-36); Blood Urea Nitrogen 42 mg/dL (7-17); Calcium 8.8 mg/dL (8.4-10.2); Carbon Dioxide 35 mmol/L (22-30); Chloride 96 mmol/L (98-107); Estimated CRCL calculation 30 ml/min; Estimated Glomerular Filt Rate 53; Glucose 117 mg/dL (65-110); Potassium 3.8 mmol/L (3.4-5.0); Sodium 133 mmol/L (137-145)
[2023-04-03] MEDS: ONDANSETRON INJ 4 MG/2 ML VIAL IV PUSH (06:40)
[2023-04-03 07:55] LABS: Glucose Point of Care 113 mg/dl (65-105)
--- NOTE | 2023-04-03 08:01 | PC.NURSE ---
Dr. Farmer notified of positive blood culture results. Pt currently on Zithromax and Rocephin. New orders for IVPB Vancomycin to be added.
[2023-04-03] MEDS: SODIUM CHLORIDE 0.9% IV 1,000 ML 100 ML IV CONT (09:38)
[2023-04-03] MEDS: PARoxetine 20 MG TABLET PO (09:52)
[2023-04-03] MEDS: PANTOPRAZOLE 40 MG TABLET PO (09:52)
[2023-04-03] MEDS: predniSONE 10 MG TABLET PO (09:52)
[2023-04-03] MEDS: GABAPENTIN 400 MG CAPSULE 800 MG PO (09:52)
[2023-04-03] MEDS: SOLIFENACIN 5 MG TABLET PO (09:52)
[2023-04-03] MEDS: amLODIPine BESYLATE 5 MG TABLET PO (09:52)
[2023-04-03] MEDS: METOPROLOL TARTRATE 12.5 MG TABLET PO ×2 (09:58→12:33)
[2023-04-03] MEDS: VANCOMYCIN 1,250 MG/NS 250 ML 1,250 MG/250 ML BAG 166.67 MG IVPB (10:22)
--- NOTE | 2023-04-03 11:24 | PM.CNCAR ---
Assessment and Plan Assessment and plan (1) Atrial fibrillation with rapid ventricular response: Code(s): I48.91 - Unspecified atrial fibrillation Status: Acute Assessment and Plan: Possibly new diagnosis. Records from prior hospitalization at an outside hospital document an EKG suggestive of either atrial fibrillation with RVR or atrial tachycardia with subsequent conversion to sinus rhythm. She does have atrial fibrillation with rapid ventricular response demonstrated by EKG from this hospitalization. Probably secondary to acute illness and pain related to SBO. Chronicity of her atrial fibrillation is unknown. For now, we will pursue a rate control strategy. She has already been started on metoprolol 12.5 mg q.6 hours. Continue this for now and up titrate if her rate becomes inadequately controlled. Will hold off on anticoagulation for now since she has plans to go to the operating room this afternoon. She also has a history of anemia on anticoagulation, may not be able to tolerate systemic anticoagulation. Initiate anticoagulation when okay per surgery. Can consider referral for Watchman device if she is unable to tolerate anticoagulation echocardiogram from outside hospital in November of this year showed normal systolic function, moderate pulmonary hypertension, mild TR, moderate MR. Would consider her to be moderate risk for noncardiac surgery History of Present Illness History of Present Illness Consult date/time: 04/03/23 11:24 Requesting physician: Carissa Lao PA-C Consult reason: atrial fibrillation Reason For Visit: acute kidney injury,atrial fibrillation with rvr,p Narrative: Ulises Moody is an 87-year-old female with a history of deep vein thrombosis, pulmonary embolism, multiple myeloma, hypertension, and hypothyroidism. This is a patient who presents to the hospital after sustaining a fall. Her workup on admission to the hospital revealed an incarcerated left lower abdominal hernia. Apparently she has been having some nausea and vomiting since Sunday. She has also been found to have atrial fibrillation with rapid ventricular response. The patient denies any history of atrial fibrillation and the patient's also does not remember any prior diagnosis of atrial fibrillation. She had however been anticoagulated because of pulmonary embolism but her anticoagulation has been discontinued because of anemia. Cardiology is being asked to see her because of atrial fibrillation and for preoperative cardiac risk assessment. Review of Systems Review of Systems: All systems reviewed & are unremarkable except as noted in HPI and below PMFSH Past Medical History Medical History Anticoagulant long-term use Cervical spine fracture (07/2022) C1, C2, C7 fractures. Chronic atrial fibrillation Chronic deep vein thrombosis (DVT) of both lower extremities Chronic neck pain Chronic pain syndrome Chronic pulmonary embolism Depression Essential hypertension Glaucoma Hypothyroidism Multiple myeloma Overactive bladder Pulmonary hypertension Small bowel obstruction Surgical History Surgical History History of cervical spinal surgery Surgical stabilization of C1, C2, and C7 following fracture sustained in a fall. History of foot surgery Family History Family History Sibling Family history of diabetes mellitus in first degree relative Cancer Mother Hypertension Father Family history of coronary artery disease Cerebrovascular accident Family history of rheumatoid arthritis Social History Social History Social History: Surrogate medical decision maker: Allie Moody, spouse. Code status: Full code. Smoking status: Never smoker Second hand tob
--- NOTE | 2023-04-03 12:16 | PM.IMPN ---
Progress Note: A&P Assessment and Plan (1) Acute kidney injury: Code(s): N17.9 - Acute kidney failure, unspecified Status: Acute Assessment and Plan: Continue IV fluids, monitor kidney function. Creatinine improved. (2) Pneumonia: Code(s): J18.9 - Pneumonia, unspecified organism Status: Acute Assessment and Plan: Continue IV antibiotics. Respiratory status is okay. (3) Atrial fibrillation with rapid ventricular response: Code(s): I48.91 - Unspecified atrial fibrillation Status: Acute Assessment and Plan: Heart rate is improved. Cardiology consult (4) Rib fracture: Code(s): S22.39XA - Fracture of one rib, unspecified side, initial encounter for closed fracture Status: Acute (5) Hypoxia: Code(s): R09.02 - Hypoxemia Status: Acute Assessment and Plan: Complicated by pneumonia Continue oxygen as (6) Fall from ground level: Code(s): W18.30XA - Fall on same level, unspecified, initial encounter Status: Acute (7) Dehydration: Code(s): E86.0 - Dehydration Status: Acute Assessment and Plan: Monitor volume status (8) Multiple myeloma: Code(s): C90.00 - Multiple myeloma not having achieved remission Status: Acute (9) Small bowel obstruction: Code(s): K56.609 - Unspecified intestinal obstruction, unspecified as to partial versus complete obstruction Status: Acute Assessment and Plan: Appreciate surgical input Subjective Date/time seen: 04/03/23 12:16 Interval history: NO COMPLAINTS Exam Narrative: General:?Mildly ill-appearing elderly female in the semi-Aquino position in bed. Weight: 54.2 kg. BMI: 21.2. HEENT:??PERRL, EOMI. Sclera anicteric. Tacky mucous membranes. Neck:??Supple. Respiratory:?Respirations are nonlabored.? Lungs are clear to auscultation. Cardiovascular:?Irregularly irregular rate and rhythm. Gastrointestinal:??Abdomen is soft and slightly distended in the lower abdomen without tenderness. Positive bowel sounds. Skin:??Warm and dry. Extremities:??No cyanosis, clubbing, or significant edema. Radial and pedal pulses intact. Neurological:??Alert.? Cranial nerves 2-12 are grossly intact. No gross focal deficits to casual conversation. Psychiatric:?Pleasant cooperative with appropriate mood and affect. Objective Data Vital Signs Vital Signs: Vital Signs - 24 hr 04/02/23 13:13 04/02/23 13:20 04/02/23 13:21 Temperature Pulse Rate 88 Respiratory Rate 22 H Blood Pressure 153/84 H Pulse Oximetry 95 88 L 94 Oxygen Delivery Nasal Cannula Nasal Cannula Oxygen Flow Rate 2 3 04/02/23 14:54 04/02/23 18:00 04/02/23 20:00 Temperature 97.1 F L Pulse Rate 94 105 H 103 H Respiratory Rate 22 H 22 H Blood Pressure 134/72 122/63 Pulse Oximetry 99 95 Oxygen Delivery Oxygen Flow Rate 04/02/23 20:00 04/02/23 20:00 04/02/23 22:00 Temperature Pulse Rate 104 H 96 Respiratory Rate Blood Pressure Pulse Oximetry 95 Oxygen Delivery Nasal Cannula Oxygen Flow Rate 3 04/02/23 23:45 04/03/23 00:00 04/03/23 00:00 Temperature 97.1 F L Pulse Rate 108 H 104 H Respiratory Rate 20 Blood Pressure 151/78 H Pulse Oximetry 95 95 Oxygen Delivery Nasal Cannula Oxygen Flow Rate 3 04/03/23 02:00 04/03/23 04:00 04/03/23 04:00 Temperature Pulse Rate 107 H 94 Respiratory Rate Blood Pressure Pulse Oximetry 95 Oxygen Delivery Nasal Cannula Oxygen Flow Rate 3 04/03/23 04:00 04/03/23 06:00 04/03/23 08:00 Temperature 96.9 F L 97.9 F Pulse Rate 83 114 H 105 H Respiratory Rate 22 H 18 Blood Pressure 136/69 148/76 H Pulse Oximetry 98 99 Oxygen Delivery Oxygen Flow Rate 04/03/23 09:58 Temperature Pulse Rate 106 H Respiratory Rate Blood Pressure Pulse Oximetry Oxygen Delivery Oxygen Flow Rate Intake/Output Intake/Output: Intake & Output 03/31/23 07
[2023-04-03] MEDS: AZITHROMYCIN 500 MG/NS 250 ML 500 MG/250 ML BAG 250 MG IVPB (12:24)
--- NOTE | 2023-04-03 12:28 | WPDANESEPPF ---
Anes - Initial Pre Proc Eval Procedure: Operation Date: 04/03/23 13:30 Proposed Procedures p Robotic Assisted Ventral Hernia Repair with Mesh - Svetlana Barba MD Date/Time: 04/03/23 12:28 Surgeon: Yg Banerjee MD Pre Op Diagnosis: acute kidney injury,atrial fibrillation with rvr,p Patient Data Age: 87 Gender: F Height: 1.6 m Weight: 53.5 kg Last Vital Signs Temp 36.6 C 04/03/23 08:00 Pulse 106 H 04/03/23 09:58 Resp 18 04/03/23 08:00 BP 148/76 H 04/03/23 08:00 Pulse Ox 99 04/03/23 08:00 O2 Del Method Nasal Cannula 04/03/23 04:00 O2 Flow Rate 3 04/03/23 04:00 Allergies Allergy/AdvReac Type Severity Reaction Status Date / Time VICKI Inhibitors Allergy Unknown unk Verified 04/04/23 13:07 Home Medications Medication Instructions Recorded Confirmed Type amlodipine 5 mg tablet 5 mg PO DAILY 10/13/19 04/02/23 History bimatoprost 0.01 % eye drops 1 drop ophthalmic (eye) DAILY PRN 10/13/19 04/02/23 History ([place]) Dry Eyes methylphenidate HCl 5 mg tablet 10 mg PO BID 10/13/19 04/02/23 History pantoprazole 40 mg tablet,delayed 40 mg PO DAILY 10/14/19 04/02/23 History release levothyroxine 75 mcg tablet 75 mcg PO DAILY #90 tabs 01/11/23 04/02/23 Rx gabapentin 800 mg tablet 800 mg PO TID 02/07/23 04/02/23 History metoprolol tartrate 25 mg tablet 20 mg PO QID 02/07/23 04/02/23 History ondansetron HCl 4 mg tablet 4 mg PO QID PRN Nausea And Vomiting 02/07/23 04/02/23 History paroxetine HCl 20 mg tablet 20 mg PO DAILY 02/07/23 04/02/23 History prednisone 10 mg tablet 10 mg PO DAILY 02/07/23 04/02/23 History tizanidine 2 mg tablet 2 mg PO QID PRN muscle spasms 02/07/23 04/02/23 History solifenacin 5 mg tablet (Vesicare) 5 mg PO DAILY #30 tabs 02/27/23 04/02/23 Rx zolpidem 5 mg tablet 5 mg PO HS 04/02/23 04/02/23 History Laboratory Tests 04/02/23 04/02/23 04/02/23 17:55 18:11 21:18 WBC RBC Hgb Hct MCV MCH MCHC RDW Plt Count MPV Immature Gran % (Auto) Neut % (Auto) Lymph % (Auto) [place] % (Auto) Eos % (Auto) Baso % (Auto) Lymph # (Auto) [place] # (Auto) Eos # (Auto) Baso # (Auto) Abs Immat Gran (auto) Absolute Neuts (auto) Absolute Nucleated RBC Nucleated RBC % Sodium Potassium Chloride Carbon Dioxide Anion Gap BUN Creatinine Estim Creat Clear Calc Estimated GFR Glucose POC Capillary Glucose 140 H mg/dl 136 H mg/dl (65-105) (65-105) Calcium Magnesium Total Bilirubin AST ALT Alkaline Phosphatase Total Protein Albumin TSH (Reflex) Ur L.pneumophila Ag Pending Mycoplasma pneumon IgM Urine Pneumococcal Ag Pending 04/03/23 04/03/23 05:04 07:29 WBC 4.9 K/mm3 (4.5-10.0) RBC 3.32 L M/mm3 (4.2-5.4) Hgb 10.8 L g/dL (12.0-15.0) Hct 34.1 L % (37.0-47.0) MCV 102.7 H fl (80-100) MCH 32.5 pg (26-34) MCHC 31.7 L g/dl (32-36) RDW 17.7 H % (11.5-14.5) Plt Count 162 k/mm3 (150-375) MPV 9.0 fl (7.4-10.4) Immature Gran % (Auto) 0.4 % (0-0.5) Neut % (Auto) 83.0 H % (45.5-73.1) Lymph % (Auto) 13.8 L % (18.3-44.2) Karnes % (Auto) 2.6 % (2.6-8.5) Eos % (Auto) 0.2 % (0-4.4) Baso % (Auto) 0.0 L % (0.2-1.2) Lymph # (Auto) 0.68 L K/mm3 (0.9-3.2) Karnes # (Auto) 0.1 K/mm3 (0.1-0.6) Eos # (Auto) 0.0 K/mm3 (0-0.3) Baso # (Auto) 0.0 K/mm3 (0.0-0.1) Abs Immat G
[2023-04-03 12:39] LABS: Glucose Point of Care 103 mg/dl (65-105)
--- NOTE | 2023-04-03 14:02 | PM.CNGS ---
Assessment and Plan Assessment and plan (1) Incarcerated ventral hernia: Code(s): K43.6 - Other and unspecified ventral hernia with obstruction, without gangrene Status: Acute Assessment and Plan: will need urgent repair given obstruction, exam largely benign, may need NG decompression, will need med optimization prior to surgery (2) Atrial fibrillation with rapid ventricular response: Code(s): I48.91 - Unspecified atrial fibrillation Status: Acute Assessment and Plan: cardiology consult for clearance and optimization (3) Pneumonia: Code(s): J18.9 - Pneumonia, unspecified organism Status: Acute Assessment and Plan: cont current mgmt per primary team (4) Acute kidney injury: Code(s): N17.9 - Acute kidney failure, unspecified Status: Acute Assessment and Plan: cont current mgmt per primary team History of Present Illness Consult details Consult date: 04/03/23 Reason for consult: abdominal pain Requesting physician: Yg Banerjee MD Narrative: The patient is an 87-year-old female with multiple medical issues that presented to the emergency department status post fall. The patient has since been admitted to the medical service and workup has revealed an incarcerated left lower abdominal hernia. The patient reports that she has had some nausea and vomiting since Sunday. The patient did not previously know that she had a hernia, over though she is a poor historian and has a history of dementia. The patient reports there is bulging in her left lower abdomen that is hard and tender with palpation. CT scan obtained overnight shows an incarcerated hernia with small bowel obstruction. Review of Systems Review of Systems: ROS unobtainable: Yes unobtainable due to mental status PMFSH Past Medical History Medical History Anticoagulant long-term use Cervical spine fracture (07/2022) C1, C2, C7 fractures. Chronic atrial fibrillation Chronic deep vein thrombosis (DVT) of both lower extremities Chronic neck pain Chronic pain syndrome Chronic pulmonary embolism Depression Essential hypertension Glaucoma Hypothyroidism Multiple myeloma Overactive bladder Pulmonary hypertension Small bowel obstruction Surgical History Surgical History History of cervical spinal surgery Surgical stabilization of C1, C2, and C7 following fracture sustained in a fall. History of foot surgery Family History Family History Sibling Family history of diabetes mellitus in first degree relative Cancer Mother Hypertension Father Family history of coronary artery disease Cerebrovascular accident Family history of rheumatoid arthritis Social History Social History Social History: Surrogate medical decision maker: Allie Fransisco, spouse. Code status: Full code. Smoking status: Never smoker Second hand tobacco smoke exposure: No Alcohol intake: current Drinks per week: 2 Alcohol use details: social Substance use: never Substance use type: does not use Lack of Transportation: No Lack of Food: Never True Current Housing: I Have Housing Concerned About Future Housing: No Difficulty Paying Gas/Electric Bills: No Difficulty Paying for Meds: No Currently Unemployed: No Education: High School Diploma/GED Difficulty w/ Childcare or Family Care: No Living arrangements: with family Occupation/Education: retired Spiritual care concerns: No Meds Home Medications and Allergies Home Medications Medication Instructions Recorded Confirmed Type amlodipine 5 mg tablet 5 mg PO DAILY 10/13/19 04/02/23 History bimatoprost 0.01 % eye drops 1 drop ophthalmic (eye) DAILY PRN 10/13/19 04/02/23 History ([place]) Dry Eyes
[2023-04-03 17:02] LABS: Glucose Point of Care 108 mg/dl (65-105)
--- NOTE | 2023-04-03 17:20 | PC.NURSE ---
Spoke with Dr. Carney regarding pt's NPO status with NG placement. Pt to receive 12.5 mg PO Metoprolol Tartrate QID. New order for 2.5mg IVP Lopressor q6hr. Hold for HR <70 and or SBP<100
--- NOTE | 2023-04-03 17:22 | PC.NURSE ---
Spoke with Dr. Farmer regarding pt's Po medications. New order to switch medications to IV form and hold the ones that aren't able to be switched to IV form.
[2023-04-03] MEDS: METOPROLOL TARTRATE INJ 5 MG/5 ML VIAL 2.5 MG IV PUSH (17:35)
[2023-04-03] MEDS: LATANOPROST 0.005% OP SOLN 2.5 ML BTL 1 DROP EACH EYE (21:36)
[2023-04-04] VITALS (31 sets, daily range): BP systolic 96–149; BP diastolic 39–112; PULSE 80–132; RESP 16–109; TEMP 36.2–36.9; O2SAT 88–97
[2023-04-04] MEDS: METOPROLOL TARTRATE INJ 5 MG/5 ML VIAL 2.5 MG IV PUSH ×5 (01:42→17:39)
[2023-04-04] MEDS: SODIUM CHLORIDE 0.9% IV 1,000 ML 100 ML IV CONT ×2 (01:43→10:56)
[2023-04-04 04:18] LABS: Estimated CRCL calculation 33 ml/min; Estimated Glomerular Filt Rate 60
[2023-04-04] MEDS: LEVOTHYROXINE SODIUM INJ 100 MCG/5 ML VIAL 37.5 MCG IV PUSH (07:00)
[2023-04-04] MEDS: PANTOPRAZOLE SODIUM IV 40 MG VIAL IV PUSH (09:01)
[2023-04-04 09:21] LABS: Glucose Point of Care 85 mg/dl (65-105)
[2023-04-04] MEDS: AZITHROMYCIN 500 MG/NS 250 ML 500 MG/250 ML BAG 250 MG IVPB (11:24)
--- NOTE | 2023-04-04 11:36 | PM.PNCARD ---
Progress Note: A&P Assessment and Plan (1) Atrial fibrillation with rapid ventricular response: Code(s): I48.91 - Unspecified atrial fibrillation Status: Acute Assessment and Plan: Possibly new diagnosis. Records from prior hospitalization at an outside hospital document an EKG suggestive of either atrial fibrillation with RVR or atrial tachycardia with subsequent conversion to sinus rhythm. She does have atrial fibrillation with rapid ventricular response demonstrated by EKG from this hospitalization. Probably secondary to acute illness and pain related to SBO. Chronicity of her atrial fibrillation is unknown. For now, we will pursue a rate control strategy. Continue metoprolol. Heart rate is reasonably controlled at present. Will hold off on anticoagulation for now since she has plans to go to the operating room this afternoon. She also has a history of anemia on anticoagulation, may not be able to tolerate systemic anticoagulation. Initiate anticoagulation when okay per surgery. Can consider referral for Watchman device if she is unable to tolerate anticoagulation echocardiogram from outside hospital in November of this year showed normal systolic function, moderate pulmonary hypertension, mild TR, moderate MR. Would consider her to be moderate risk for noncardiac surgery Subjective Date/time seen: 04/04/23 11:36 Interval history: Kvucoa-[id number]-[id number]-old admitted for small-bowel obstruction. Cardiology consultation for atrial fibrillation and preoperative evaluation Date of service 04/04/2023: Awaiting surgery today. Heart rate is still controlled. No chest pain or shortness of breath Review of Systems Review of Systems: All systems reviewed & are unremarkable except as noted in HPI and below Constitutional: Constitutional: Denies body ache(s) ENT: Reports Normal hearing present Cardiovascular: Cardiovascular: Denies chest pain Respiratory: Respiratory: Denies dyspnea Gastrointestinal: Gastrointestinal: Denies abdominal pain Genitourinary: Genitourinary: Denies hematuria Integumentary/Breasts: Skin/Breast: Denies breast pain Hematologic/Lymphatic: Hematologic/Lymphatic: Denies easy bleeding Exam Const: General: comfortable, no acute distress, alert and awake Other: some confusion, memory loss HENMT: Head: normal to inspection Eyes: General: appearance normal, both eyes and all related structures Pupils: Equal, round and reactive pupils present Neck: Neck: normal visual inspection, supple and no JVD Carotids: normal carotid upstroke Resp: Effort & Inspection: normal respiratory effort Auscultation: clear to auscultation bilaterally Cardio: Rate: regular rate Rhythm: abnormal rhythm irregularly irregular Heart sounds: S1 normal heart sound present, S2 normal heart sound present and no murmurs GI: Inspection: distended Auscultation: normal bowel sounds Skin: General skin exam: normal color Neuro: Speech: normal speech Extrem: General: normal to inspection Psych: Appearance: grossly normal Mental Status: mental status grossly normal Objective Data Vital Signs Vital Signs: Vital Signs - 24 hr 04/03/23 12:33 04/03/23 12:28 04/03/23 12:00 Temperature 36.6 C Pulse Rate 95 113 H Respiratory Rate 18 Blood Pressure 150/80 H Pulse Oximetry 96 96 Oxygen Delivery Nasal Cannula Oxygen Flow Rate 3 Fraction of Inspired Oxygen 04/03/23 12:00 04/03/23 12:00 04/03/23 14:00 Temperature 36.6 C Pulse Rate 100 113 H 101 H Respiratory Rate 18 Blood Pressure 150/80 H Pulse Oximetry 96 Oxygen Delivery Oxygen Flow Rate Fraction of Inspired Oxygen 04/03/23 16:00 04/03/23 17:35 04/03/23 16:00 Temperature 36.8 C Pulse Rate 96 90 108 H Respiratory Rate 18 Blood Pressure 135/72 Pulse Oximetry 92 Oxygen Delivery Oxygen Flow Rate Fraction of Inspired Oxygen 04/03/23 18:00 04/03/23 16:00 04/03/23
--- NOTE | 2023-04-04 12:48 | PC.NURSE ---
To OR per [bed ], IV fluids paused. Report given to [Vannessa, RN].
[2023-04-04] MEDS: LACTATED RINGERS 1,000 ML 30 ML IV CONT ×2 (13:19→15:40)
--- NOTE | 2023-04-04 13:43 | WPDHPUPDATE1 ---
History and Physical Update Update Date/Time: 04/04/23 13:43 History and Physical has been reviewed, including an updated exam of the patient. There are NO changes in the patient's condition. Risks, benefits, and alternatives have been discussed and questions answered. Patient agrees to proceed with procedure. setup for robotic assisted repair left lower abdomen incarcerated ventral hernia with mesh
[2023-04-04] MEDS: BUPIVACAINE/EPINEPHRINE 0.5% 10 ML VIAL 30 ML INFILTRATE (14:34)
--- NOTE | 2023-04-04 15:46 | W.PM.PROC2 ---
Procedure Note - Detailed Date of Procedure 04/04/23 Pre-op Diagnosis Incarcerated left lower abdominal wall hernia with resultant small bowel obstruction Post-op Diagnosis Other ( strangulated left lower abdominal wall hernia with small bowel perforation) Procedure Performed robotic assisted reduction of strangulated left lower quadrant abdominal ventral hernia with noted perforation, conversion to open small-bowel resection, washout, primary closure of left lower quadrant ventral hernia Surgeon Svetlana Barba MD Anesthesia General Indications 87-year-old female presenting to the emergency department complaining of weakness, fatigue status post fall. Patient also with intractable nausea and vomiting and left lower quadrant abdominal pain. Workup including imaging, was significant for incarcerated left lower quadrant abdominal wall hernia with small-bowel obstruction. Findings Left lower quadrant abdominal wall hernia with strangulated small bowel and perforation, defect measured approximately 1.5 cm Description of Procedure The patient was taken to the operating room and placed in the supine position. After adequate induction of general anesthesia, the patient was prepped and draped in the normal sterile fashion. A time-out was then done to verify the patient's identity, as well as the procedure being performed. I began by making an 8 mm incision in the supraumbilical region. A Veress needle was placed through this incision and CO2 gas was insufflated. After adequate pneumoperitoneum was achieved, the Veress needle was removed and an 8 mm Optiview was placed under direct visualization. Once confirmed in position, the introducer was removed and the laparoscopic was placed through this trocar site. I was able to identify the hernia in the left lower abdomen with noted a small bowel incarcerated within the hernia. I proceeded to place 2 additional 8 mm ports in the left mid abdomen as well as the right mid abdomen. The robot was then docked to these trocar sites. I was then able to slowly reduce the small bowel out of this ventral hernia. Upon reduction, a large amount of enteric fluid was noted within the hernia sac. The bowel looked to be ischemic and there was a noted perforation. There was noted to be enteric content leaking from the perforation. Given these findings, the decision was made to convert to open surgery. The robot was undocked and all port sites were removed. I then made a lower midline incision to gain access into the peritoneal cavity. I then suction the enteric content from the pelvis. I was then able to identify the small bowel loop that was strangulated, perforated. I whipstitched closed the enterotomy. I then resected the small bowel that was ischemic and contained the perforation. This segment measured approximately 5 cm. The transection was done with SHAMEKA 55 stapler x2. The mesenteric attachments to this resection were taken down with the LigaSure device. We then copiously irrigated the abdominal cavity. I then ran the small bowel and no other pathology was noted. I then proceeded to perform a [id number] functional end-to-end anastomosis with the remaining small bowel using a SHAMEKA 55 stapler followed by a TL 60 stapler. I then oversewed the staple with 3-0 silk suture. The mesenteric defect was closed with a 3-0 silk suture. The anastomosis was noted to be tension-free and widely patent. At this point, I closed the left lower quadrant defect with a 1. PDS suture in an interrupted fashion. The defect was only noted to be approximately 1.5 cm. I then left a 15 Divehi drain in the pelvis coming out through our previous left mid abdominal port site. The lower midline incision was then closed with an 0 looped PDS suture at the fascial level. I then closed the incision with skin halina. The 2 8 mm port sites were closed with 4-0 Monocryl subcuticular sutures. The patient tolerated the procedure well and was extubated
--- NOTE | 2023-04-04 17:24 | PC.NURSE ---
Returned from OR per [ bed]. Report received from [GIOVANNI Griffiths @ [id number]]. Family at bedside.
--- NOTE | 2023-04-04 17:49 | WPDPN ---
Progress Note: A&P Assessment and Plan (1) Acute kidney injury: Code(s): N17.9 - Acute kidney failure, unspecified Status: Acute Assessment and Plan: Continue IV fluids, monitor kidney function. Creatinine improved. 04/04/2023 interval history: 87-year-old female presented with atrial fibrillation with RVR seen by Cardiology rate is trending down and control, however patient is also found to have incarcerated inguinal hernia, today patient was taken to OR and had a surgical correction patient just returned from the surgery and somnolent, clinically stable will continue to monitor. (2) Pneumonia: Code(s): J18.9 - Pneumonia, unspecified organism Status: Acute Assessment and Plan: Continue IV antibiotics. Respiratory status is okay. (3) Atrial fibrillation with rapid ventricular response: Code(s): I48.91 - Unspecified atrial fibrillation Status: Acute Assessment and Plan: Heart rate is improved. Cardiology consult (4) Rib fracture: Code(s): S22.39XA - Fracture of one rib, unspecified side, initial encounter for closed fracture Status: Acute (5) Hypoxia: Code(s): R09.02 - Hypoxemia Status: Acute Assessment and Plan: Complicated by pneumonia Continue oxygen as (6) Fall from ground level: Code(s): W18.30XA - Fall on same level, unspecified, initial encounter Status: Acute (7) Dehydration: Code(s): E86.0 - Dehydration Status: Acute Assessment and Plan: Monitor volume status (8) Multiple myeloma: Code(s): C90.00 - Multiple myeloma not having achieved remission Status: Acute (9) Small bowel obstruction: Code(s): K56.609 - Unspecified intestinal obstruction, unspecified as to partial versus complete obstruction Status: Acute Assessment and Plan: Appreciate surgical input Subjective Date/time seen: 04/04/23 17:49 Interval history: 04/04/2023 interval history: 87-year-old female presented with atrial fibrillation with RVR seen by Cardiology rate is trending down and control, however patient is also found to have incarcerated inguinal hernia, today patient was taken to OR and had a surgical correction patient just returned from the surgery and somnolent, clinically stable will continue to monitor. Review of Systems Review of Systems: ROS unobtainable: Yes unobtainable due to medical condition Exam Narrative: Elderly frail Patient is comfortable, NAD HEENT: eyes are clear and none icteric LUNGS: Normal respiratory effort ABD: Not distended Lower extremities: no edema SKIN: nonjaundiced Neuro: grossly intact. Objective Data Vital Signs Vital Signs: Vital Signs - 24 hr 04/03/23 18:00 04/03/23 18:45 04/03/23 20:55 Temperature 98.3 F Pulse Rate 92 Respiratory Rate 18 Blood Pressure 131/69 Pulse Oximetry 96 96 Oxygen Delivery Nasal Cannula Oxygen Flow Rate 1 Fraction of Inspired Oxygen 04/03/23 20:00 04/03/23 20:00 04/03/23 23:23 Temperature 98.3 F 97.7 F Pulse Rate 92 92 85 Respiratory Rate 18 18 18 Blood Pressure 131/69 127/63 Pulse Oximetry 96 96 96 Oxygen Delivery Nasal Cannula Oxygen Flow Rate 2 Fraction of Inspired Oxygen 04/04/23 01:42 04/04/23 03:38 04/03/23 20:00 Temperature 98.3 F Pulse Rate 83 85 89 Respiratory Rate 18 Blood Pressure 129/64 Pulse Oximetry 95 Oxygen Delivery Oxygen Flow Rate Fraction of Inspired Oxygen 04/03/23 22:00 04/04/23 00:00 04/04/23 00:00 Temperature Pulse Rate 69 80 85 Respiratory Rate 18 Blood Pressure Pulse Oximetry 95 Oxygen Delivery Nasal Cannula Oxygen Flow Rate 2 Fraction of Inspired Oxygen 04/04/23 02:00 04/04/23 04:00 04/04/23 04:00 Temperature Pulse Rate 88 85 85 Respiratory Rate 18 Blood Pressure Pulse Oximetry 95 Oxygen Delivery Nasal Cannula Oxygen Flow Rate 2 Fraction of Inspired Oxyge
[2023-04-04 17:57] LABS: Glucose Point of Care 92 mg/dl (65-105)
[2023-04-04 20:11] LABS: Glucose Point of Care 86 mg/dl (65-105)
[2023-04-04] MEDS: cefTRIAXone 2 GM/NS 100 ML 2 GM/100 ML BAG IVPB (20:58)
[2023-04-04] MEDS: LATANOPROST 0.005% OP SOLN 2.5 ML BTL 1 DROP EACH EYE (22:16)
[2023-04-05] VITALS (25 sets, daily range): BP systolic 95–140; BP diastolic 56–77; PULSE 60–121; RESP 16–28; TEMP 26.6–36.7; O2SAT 93–99
[2023-04-05] MEDS: METOPROLOL TARTRATE INJ 5 MG/5 ML VIAL 2.5 MG IV PUSH ×5 (01:01→23:07)
--- NOTE | 2023-04-05 01:08 | PC.NURSE ---
Patient unable to follow commands to perform incentive spirometry. Will continue to attempt
[2023-04-05] MEDS: SODIUM CHLORIDE 0.9% IV 1,000 ML 100 ML IV CONT ×3 (02:51→23:09)
[2023-04-05 04:39] LABS: Hematocrit 32.5 % (37.0-47.0); Hemoglobin 10.4 g/dL (12.0-15.0); Mean Corpuscular Hemoglobin 32.9 pg (26-34); Mean Corpuscular Volume 102.8 fl (80-100); Mean Platelet Volume 9.7 fl (7.4-10.4); Platelet Count Result 136 k/mm3 (150-375); Red Blood Count 3.16 M/mm3 (4.2-5.4); Red Cell Distribution Width 17.7 % (11.5-14.5); White Blood Count 5.3 K/mm3 (4.5-10.0)
[2023-04-05 05:01] LABS: Anion Gap 6 mmol/L (8-16); Blood Urea Nitrogen 38 mg/dL (7-17); Carbon Dioxide 26 mmol/L (22-30); Chloride 107 mmol/L (98-107); Estimated CRCL calculation 27 ml/min; Estimated Glomerular Filt Rate 47; Glucose 98 mg/dL (65-110); Magnesium 1.8 mg/dL (1.6-2.3); Potassium 3.7 mmol/L (3.4-5.0); Sodium 139 mmol/L (137-145)
[2023-04-05] MEDS: LEVOTHYROXINE SODIUM INJ 100 MCG/5 ML VIAL 37.5 MCG IV PUSH (05:48)
[2023-04-05 08:02] LABS: Glucose Point of Care 95 mg/dl (65-105)
[2023-04-05] MEDS: PANTOPRAZOLE SODIUM IV 40 MG VIAL IV PUSH (09:25)
[2023-04-05] MEDS: AMPICILLIN SULB 3 GM/NS 100 ML 3 GM/100 ML VIAL IVPB ×3 (10:33→21:11)
--- NOTE | 2023-04-05 10:37 | PM.PNGS ---
Progress Note: A&P Assessment and Plan (1) Strangulated ventral hernia: Code(s): K43.6 - Other and unspecified ventral hernia with obstruction, without gangrene Status: Acute Assessment and Plan: doing well, will clamp NG, ok to have sips of clears, dc vaca if UOP ok, PT/OT Subjective Subjective Date/Time Seen: 04/05/23 10:37 Interval history: feels ok, wants something to drink Review of Systems Review of Systems: All systems reviewed & are unremarkable except as noted in HPI and below Exam Const: General: cooperative, no acute distress, ill appearing and tired appearing Resp: Auscultation: diminished lung sounds Cardio: Rate: tachycardic Rhythm: abnormal rhythm GI: Inspection: normal to inspection, distended and incision GI Palp: Yes abdominal tenderness, Yes Soft to palpation, Yes Tenderness to palpation present (GI), No Guarding due to palpation present (GI) and No Rigid due to palpation Other: ANNE c minimal s/s drainage Objective Data Vital Signs Vital Signs: Vital Signs - 24 hr 04/04/23 11:29 04/04/23 12:00 04/04/23 12:55 Temperature 36.2 C L 36.6 C Pulse Rate 100 85 89 Respiratory Rate 19 18 Blood Pressure 149/75 H 135/78 Pulse Oximetry 96 96 Oxygen Delivery Nasal Cannula Oxygen Flow Rate 1 04/04/23 13:22 04/04/23 12:00 04/04/23 12:00 Temperature Pulse Rate 88 Respiratory Rate Blood Pressure Pulse Oximetry 92 95 Oxygen Delivery Nasal Cannula Nasal Cannula Oxygen Flow Rate 2 1 04/04/23 15:40 04/04/23 16:10 04/04/23 16:19 Temperature 36.2 C L Pulse Rate 110 H 124 H 132 H Respiratory Rate 22 H 22 H Blood Pressure 112/48 L 128/101 H Pulse Oximetry 94 96 Oxygen Delivery Simple Face Mask Simple Face Mask Oxygen Flow Rate 10 10 04/04/23 16:25 04/04/23 16:40 04/04/23 16:55 Temperature Pulse Rate 130 H 123 H 119 H Respiratory Rate 22 H 24 H 22 H Blood Pressure 144/112 H 123/68 112/57 L Pulse Oximetry 94 94 91 Oxygen Delivery Nasal Cannula Nasal Cannula Nasal Cannula Oxygen Flow Rate 2 2 2 04/04/23 15:55 04/04/23 17:25 04/04/23 17:40 Temperature 36.7 C 36.9 C Pulse Rate 95 120 H 109 H Respiratory Rate 22 H 18 109 H Blood Pressure 115/51 L 101/50 L 104/49 L Pulse Oximetry 97 92 92 Oxygen Delivery Simple Face Mask Oxygen Flow Rate 10 04/04/23 17:26 04/04/23 17:39 04/04/23 18:00 Temperature Pulse Rate 111 H 104 H Respiratory Rate Blood Pressure Pulse Oximetry 90 Oxygen Delivery Nasal Cannula Oxygen Flow Rate 3 04/04/23 18:10 04/04/23 18:41 04/04/23 20:00 Temperature 36.8 C 36.8 C Pulse Rate 109 H 111 H 104 H Respiratory Rate 16 17 16 Blood Pressure 96/39 L 100/42 L Pulse Oximetry 90 91 94 Oxygen Delivery Nasal Cannula Oxygen Flow Rate 4 04/04/23 20:11 04/05/23 00:00 04/04/23 20:00 Temperature 36.4 C L 36.6 C Pulse Rate 118 H 97 108 H Respiratory Rate 16 20 Blood Pressure 104/57 L 95/56 L Pulse Oximetry 88 L 94 Oxygen Delivery Oxygen Flow Rate 04/04/23 22:00 04/05/23 00:58 04/05/23 01:01 Temperature Pulse Rate 107 H 111 H Respiratory Rate Blood Pressure 103/63 Pulse Oximetry Oxygen Delivery Oxygen Flow Rate 04/05/23 00:00 04/05/23 00:00 04/05/23 02:00 Temperature Pulse Rate 111 H 109 H 94 Respiratory Rate 20 Blood Pressure Pulse Oximetry 94 Oxygen Delivery Nasal Cannula Oxygen Flow Rate 4 04/05/23 04:00 04/05/23 04:00 04/05/23 04:00 Temperature 36.2 C L Pulse Rate 96 96 97 Respiratory Rate 20 20 Blood Pressure 121/70 Pulse Oximetry 99 99 Oxygen Delivery Nasal Cannula Oxygen Flow Rate 4 04/05/23 05:35 04/05/23 06:00 04/05/23 08:00 Temperature 36.0 C L Pulse Rate 105 H 92 121 H Respiratory Rate 28 H Blood Pressure 131/74 Pulse Oximetry 98 Oxygen Delivery Oxygen Flow Rate Intake/Output Intake/Output: Intake & Output 04/02/23 04/03/23 04/04/23 04/05/23 23:5
--- NOTE | 2023-04-05 10:40 | PM.PNCARD ---
Progress Note: A&P Assessment and Plan (1) Atrial fibrillation with rapid ventricular response: Code(s): I48.91 - Unspecified atrial fibrillation Status: Acute Assessment and Plan: Possibly new diagnosis. Records from prior hospitalization at an outside hospital document an EKG suggestive of either atrial fibrillation with RVR or atrial tachycardia with subsequent conversion to sinus rhythm. She does have atrial fibrillation with rapid ventricular response demonstrated by EKG from this hospitalization. Probably secondary to acute illness and pain related to SBO. Chronicity of her atrial fibrillation is unknown. For now, we will pursue a rate control strategy. Continue metoprolol. Heart rate is reasonably controlled at present. Will hold off on anticoagulation until okay with surgery team. She also has a history of anemia on anticoagulation, may not be able to tolerate systemic anticoagulation. Initiate anticoagulation when okay per surgery. Can consider referral for Watchman device if she is unable to tolerate anticoagulation echocardiogram from outside hospital in November of this year showed normal systolic function, moderate pulmonary hypertension, mild TR, moderate MR. Currently obtaining IV fluids. Caution with iatrogenic volume overload. Subjective Date/time seen: 04/05/23 10:40 Interval history: [id number] admitted for small-bowel obstruction. Cardiology consultation for atrial fibrillation and preoperative evaluation Date of service 04/04/2023: Awaiting surgery today. Heart rate is still controlled. No chest pain or shortness of breath Date of service 04/05/2023: She is somnolent post surgery. Heart rate is controlled. No active chest pain Review of Systems Review of Systems: All systems reviewed & are unremarkable except as noted in HPI and below Constitutional: Constitutional: Denies body ache(s) ENT: Reports Normal hearing present Cardiovascular: Cardiovascular: Denies chest pain and Denies dyspnea Respiratory: Respiratory: Denies dyspnea Gastrointestinal: Gastrointestinal: Denies abdominal pain Genitourinary: Genitourinary: Denies hematuria Integumentary/Breasts: Skin/Breast: Denies breast pain Neurologic: Reports Normal hearing present Hematologic/Lymphatic: Hematologic/Lymphatic: Denies easy bleeding Exam Const: General: comfortable, no acute distress and awake HENMT: Head: normal to inspection Other: NG in place Eyes: Sclera: sclerae normal Neck: Neck: normal visual inspection, supple and no JVD Resp: Effort & Inspection: normal respiratory effort Auscultation: diminished lung sounds Cardio: Rate: regular rate Rhythm: abnormal rhythm irregularly irregular Heart sounds: S1 normal heart sound present, S2 normal heart sound present and no murmurs GI: Auscultation: abnormal bowel sounds Skin: General skin exam: normal color Neuro: Sensory Exam: normal sensation Extrem: General: normal to inspection Psych: Appearance: grossly normal Mental Status: mental status grossly normal Objective Data Vital Signs Vital Signs: Vital Signs - 24 hr 04/04/23 11:29 04/04/23 12:00 04/04/23 12:55 Temperature 36.2 C L 36.6 C Pulse Rate 100 85 89 Respiratory Rate 19 18 Blood Pressure 149/75 H 135/78 Pulse Oximetry 96 96 Oxygen Delivery Nasal Cannula Oxygen Flow Rate 1 04/04/23 13:22 04/04/23 12:00 04/04/23 12:00 Temperature Pulse Rate 88 Respiratory Rate Blood Pressure Pulse Oximetry 92 95 Oxygen Delivery Nasal Cannula Nasal Cannula Oxygen Flow Rate 2 1 04/04/23 15:40 04/04/23 16:10 04/04/23 16:19 Temperature 36.2 C L Pulse Rate 110 H 124 H 132 H Respiratory Rate 22 H 22 H Blood Pressure 112/48 L 128/101 H Pulse Oximetry 94 96 Oxygen Delivery Simple Face Mask Simple Face Mask Oxygen Flow Rate 10 10 04/04/23 16:25 04/04/23 16:40 04/04/23 16:55 Temperature Pulse Rate 130 H
--- NOTE | 2023-04-05 12:03 | PCNFU ---
Nutrition Follow-Up Complete: Inadequate energy intake related to NPO status as evidenced by diet order. Goal:Diet advanced PO intake 50% or greater for meals Pt is not meeting goal, continue with same goal. Pt current nutrition is to advance to clear liquids today. Nutrition recommendation: Advance as tolerated Last recorded weight is 51.7 kg. Bowel Motility: No BM recorded at this time Labs Reviewed: Hgb:10.8, HCt:34.1, Alb:3.4, NA:133, GFR:53, BUN:42, Glu:113 Meds Noted: zofran, prednisone Skin: no skin issues noted Additional Notes: Pt to advance to clear liquids today. Will monitor tolerance and further diet advancement. Add supplemented as needed. Monitor intake, wt, labs. Follow up in 3 days.
[2023-04-05 12:06] LABS: Glucose Point of Care 117 mg/dl (65-105)
[2023-04-05] MEDS: AZITHROMYCIN 500 MG/NS 250 ML 500 MG/250 ML BAG 250 MG IVPB (12:45)
[2023-04-05 15:24] LABS: Mycoplasma IgM Antibody Titer 19 U/mL (<770)
[2023-04-05 16:01] LABS: Glucose Point of Care 135 mg/dl (65-105)
--- NOTE | 2023-04-05 16:49 | PCPTNOTE ---
On 04/05/23, the student, SAYRA Sears, provided care and completed [facility] documentation on this patient. I have reviewed the student's documentation and agree with the findings.
--- NOTE | 2023-04-05 16:59 | WPDPN ---
Progress Note: A&P Assessment and Plan (1) Acute kidney injury: Code(s): N17.9 - Acute kidney failure, unspecified Status: Acute Assessment and Plan: Continue IV fluids, monitor kidney function. Creatinine improved. 04/05/2023 interval history: 87-year-old female presented with atrial fibrillation with RVR seen by Cardiology rate is trending down and control, however patient is also found to have incarcerated inguinal hernia, on 04/04 patient was taken to OR and had a surgical repair POD #1, today patient is sitting in the chair, not passing any gas and no BM, clinically stable will continue to monitor. (2) Pneumonia: Code(s): J18.9 - Pneumonia, unspecified organism Status: Acute Assessment and Plan: Continue IV antibiotics. Respiratory status is okay. (3) Atrial fibrillation with rapid ventricular response: Code(s): I48.91 - Unspecified atrial fibrillation Status: Acute Assessment and Plan: Heart rate is improved. Cardiology consult (4) Rib fracture: Code(s): S22.39XA - Fracture of one rib, unspecified side, initial encounter for closed fracture Status: Acute (5) Hypoxia: Code(s): R09.02 - Hypoxemia Status: Acute Assessment and Plan: Complicated by pneumonia Continue oxygen as (6) Fall from ground level: Code(s): W18.30XA - Fall on same level, unspecified, initial encounter Status: Acute (7) Dehydration: Code(s): E86.0 - Dehydration Status: Acute Assessment and Plan: Monitor volume status (8) Multiple myeloma: Code(s): C90.00 - Multiple myeloma not having achieved remission Status: Acute (9) Small bowel obstruction: Code(s): K56.609 - Unspecified intestinal obstruction, unspecified as to partial versus complete obstruction Status: Acute Assessment and Plan: Appreciate surgical input Subjective Date/time seen: 04/05/23 16:59 Interval history: 04/05/2023 interval history: 87-year-old female presented with atrial fibrillation with RVR seen by Cardiology rate is trending down and control, however patient is also found to have incarcerated inguinal hernia, on 04/04 patient was taken to OR and had a surgical repair POD #1, today patient is sitting in the chair, not passing any gas and no BM, clinically stable will continue to monitor. Review of Systems Review of Systems: ROS unobtainable: Yes unobtainable due to medical condition Exam Narrative: Elderly frail Patient is comfortable, NAD HEENT: eyes are clear and none icteric LUNGS: Normal respiratory effort ABD: Not distended Lower extremities: no edema SKIN: nonjaundiced Neuro: grossly intact. Objective Data Vital Signs Vital Signs: Vital Signs - 24 hr 04/04/23 17:25 04/04/23 17:40 04/04/23 17:26 Temperature 98.1 F 98.5 F Pulse Rate 120 H 109 H Respiratory Rate 18 109 H Blood Pressure 101/50 L 104/49 L Pulse Oximetry 92 92 90 Oxygen Delivery Nasal Cannula Oxygen Flow Rate 3 04/04/23 17:39 04/04/23 18:00 04/04/23 18:10 Temperature 98.3 F Pulse Rate 111 H 104 H 109 H Respiratory Rate 16 Blood Pressure 96/39 L Pulse Oximetry 90 Oxygen Delivery Oxygen Flow Rate 04/04/23 18:41 04/04/23 20:00 04/04/23 20:11 Temperature 98.3 F 97.5 F L Pulse Rate 111 H 104 H 118 H Respiratory Rate 17 16 16 Blood Pressure 100/42 L 104/57 L Pulse Oximetry 91 94 88 L Oxygen Delivery Nasal Cannula Oxygen Flow Rate 4 04/05/23 00:00 04/04/23 20:00 04/04/23 22:00 Temperature 97.8 F Pulse Rate 97 108 H 107 H Respiratory Rate 20 Blood Pressure 95/56 L Pulse Oximetry 94 Oxygen Delivery Oxygen Flow Rate 04/05/23 00:58 04/05/23 01:01 04/05/23 00:00 Temperature Pulse Rate 111 H 111 H Respiratory Rate 20 Blood Pressure 103/63 Pulse Oximetry 94 Oxygen Delivery Nasal Cannula Oxygen Flow Rate 4 04/05/23 00:00 04/05/23 02:00 07
[2023-04-05 19:37] LABS: Glucose Point of Care 141 mg/dl (65-105)
[2023-04-05] MEDS: LATANOPROST 0.005% OP SOLN 2.5 ML BTL 1 DROP EACH EYE (20:46)
[2023-04-05] MEDS: ACETAMINOPHEN 325 MG TABLET 650 MG PO (20:53)
[2023-04-06] VITALS (15 sets, daily range): BP systolic 114–146; BP diastolic 57–90; PULSE 56–115; RESP 14–16; TEMP 36.3–36.7; O2SAT 94–100
[2023-04-06] LABS: Glucose Point of Care 144 mg/dl (65-105)
--- NOTE | 2023-04-06 07:04 | PC.NURSE ---
Paper documentation exists on this patient due to [employer] downtime on 04/06/23 from to 0700[] .
[2023-04-06 07:29] LABS: Anion Gap 7 mmol/L (8-16); Blood Urea Nitrogen 39 mg/dL (7-17); Calcium 7.6 mg/dL (8.4-10.2); Carbon Dioxide 23 mmol/L (22-30); Chloride 106 mmol/L (98-107); Estimated CRCL calculation 30 ml/min; Estimated Glomerular Filt Rate 53; Glucose 128 mg/dL (65-110); Potassium 3.6 mmol/L (3.4-5.0); Sodium 136 mmol/L (137-145)
[2023-04-06 08:07] LABS: Glucose Point of Care 115 mg/dl (65-105)
[2023-04-06] MEDS: PANTOPRAZOLE SODIUM IV 40 MG VIAL IV PUSH (09:32)
[2023-04-06 09:34] LABS: Hematocrit 30.6 % (37.0-47.0); Hemoglobin 9.6 g/dL (12.0-15.0); Mean Corpuscular HGB Conc 31.4 g/dl (32-36); Mean Corpuscular Hemoglobin 32.9 pg (26-34); Mean Corpuscular Volume 104.8 fl (80-100); Mean Platelet Volume 10.5 fl (7.4-10.4); Platelet Count Result 127 k/mm3 (150-375); Red Blood Count 2.92 M/mm3 (4.2-5.4); Red Cell Distribution Width 18.3 % (11.5-14.5); White Blood Count 9.3 K/mm3 (4.5-10.0)
--- NOTE | 2023-04-06 11:29 | PM.PNGS ---
Progress Note: A&P Assessment and Plan (1) Strangulated ventral hernia: Code(s): K43.6 - Other and unspecified ventral hernia with obstruction, without gangrene Status: Acute Assessment and Plan: doing well, drain out, cont routine postop care, ADAT, OOB/IS Subjective Subjective Date/Time Seen: 04/06/23 11:29 Interval history: feels better, NG out, yonatan clears Review of Systems Review of Systems: All systems reviewed & are unremarkable except as noted in HPI and below Exam Const: General: cooperative, comfortable and no acute distress Resp: Auscultation: diminished lung sounds Cardio: Rate: regular rate Rhythm: regular rhythm GI: Inspection: normal to inspection, non-distended and incision GI Palp: Yes abdominal tenderness, Yes Soft to palpation, Yes Tenderness to palpation present (GI), No Guarding due to palpation present (GI) and No Rigid due to palpation Other: ANNE out Objective Data Vital Signs Vital Signs: Vital Signs - 24 hr 04/05/23 12:00 04/05/23 12:45 04/05/23 12:00 Temperature 36.1 C L Pulse Rate 80 97 Respiratory Rate 20 Blood Pressure 140/74 Pulse Oximetry 93 98 Oxygen Delivery Nasal Cannula Oxygen Flow Rate 3 Fraction of Inspired Oxygen 04/05/23 13:15 04/05/23 13:23 04/05/23 14:16 Temperature Pulse Rate Respiratory Rate Blood Pressure 117/70 Pulse Oximetry 96 Oxygen Delivery Nasal Cannula Nasal Cannula Oxygen Flow Rate 2 2 Fraction of Inspired Oxygen 04/05/23 14:17 04/05/23 14:15 04/05/23 14:55 Temperature Pulse Rate Respiratory Rate Blood Pressure 112/67 120/66 Pulse Oximetry Oxygen Delivery Nasal Cannula Oxygen Flow Rate 2 Fraction of Inspired Oxygen 04/05/23 16:00 04/05/23 16:00 04/05/23 12:00 Temperature 36.4 C L Pulse Rate 60 115 H Respiratory Rate 16 Blood Pressure 125/64 Pulse Oximetry 94 98 Oxygen Delivery Nasal Cannula Oxygen Flow Rate 2 Fraction of Inspired Oxygen 04/05/23 14:00 04/05/23 16:00 04/05/23 18:00 Temperature Pulse Rate 103 H 101 H 93 Respiratory Rate Blood Pressure Pulse Oximetry Oxygen Delivery Oxygen Flow Rate Fraction of Inspired Oxygen 04/05/23 17:45 04/05/23 19:58 04/05/23 20:00 Temperature 36.7 C Pulse Rate 102 H 94 103 H Respiratory Rate 20 22 H Blood Pressure 120/63 Pulse Oximetry 97 97 Oxygen Delivery Nasal Cannula Oxygen Flow Rate 2 Fraction of Inspired Oxygen 04/05/23 20:00 04/05/23 23:05 04/05/23 23:07 Temperature 26.6 C L Pulse Rate 107 H 94 103 H Respiratory Rate 18 Blood Pressure 119/77 Pulse Oximetry 95 Oxygen Delivery Oxygen Flow Rate Fraction of Inspired Oxygen 04/05/23 23:12 04/05/23 22:00 04/06/23 05:46 Temperature 36.7 C Pulse Rate 103 H 100 93 Respiratory Rate 18 16 Blood Pressure 121/77 Pulse Oximetry 95 96 Oxygen Delivery Nasal Cannula Oxygen Flow Rate 2 Fraction of Inspired Oxygen 04/06/23 07:57 04/06/23 10:04 04/06/23 08:00 Temperature 36.3 C L Pulse Rate 85 Respiratory Rate 14 Blood Pressure 122/75 Pulse Oximetry 100 94 Oxygen Delivery Room Air Room Air Oxygen Flow Rate Fraction of Inspired Oxygen 21 Intake/Output Intake/Output: Intake & Output 04/03/23 04/04/23 04/05/23 04/06/23 23:59 23:59 23:59 23:59 Intake Total 2700 1650 3910 300 Output Total 1500 1315 730 25 Balance 9154 432 5804 275 Meds/Results Medications: Active Medications Generic Name Dose Route Start Last Admin Trade Name Freq PRN Reason Stop Dose Admin Acetaminophen 650 mg 04/05/23 13:13 04/05/23 20:53 Acetaminophen 325 Mg Tablet PO 650 mg Q4H PRN Administration Mild Pain (1-3) or Fever Amlodipine Besylate 5 mg 04/03/23 09:00 04/03/23 09:52 Amlodipine Besylate 5 Mg Tablet PO 5 mg DAILY SKYLER Administration Gabapentin 800 mg 04/03/23 09:00 04/03/23 16:55 Gabapentin 400 Mg Capsule
[2023-04-06 12:29] LABS: Glucose Point of Care 105 mg/dl (65-105)
[2023-04-06] MEDS: AZITHROMYCIN 500 MG/NS 250 ML 500 MG/250 ML BAG 250 MG IVPB (13:14)
--- NOTE | 2023-04-06 13:21 | PCPTNOTE ---
On 04/06/23, the student, SAYRA Sears, provided care and completed [facility] documentation on this patient. I have reviewed the student's documentation and agree with the findings.
[2023-04-06] MEDS: MORPHINE SULFATE (*CRX) 2 MG/ML INJ IV PUSH (13:22)
[2023-04-06] MEDS: AMPICILLIN SULB 3 GM/NS 100 ML 3 GM/100 ML VIAL IVPB ×2 (15:10→21:50)
[2023-04-06] MEDS: METOPROLOL TARTRATE INJ 5 MG/5 ML VIAL 2.5 MG IV PUSH ×2 (15:10→18:21)
[2023-04-06 16:13] LABS: Pneumococcal Antigen Urine Not Detected (Not Detected)
--- NOTE | 2023-04-06 16:29 | WPDPN ---
Progress Note: A&P Assessment and Plan (1) Acute kidney injury: Code(s): N17.9 - Acute kidney failure, unspecified Status: Acute Assessment and Plan: Continue IV fluids, monitor kidney function. Creatinine improved. 04/06/2023 interval history: 87-year-old female presented with atrial fibrillation with RVR seen by Cardiology rate is trending down and control, however patient is also found to have incarcerated inguinal hernia, on 04/04 patient was taken to OR and had a surgical repair POD #2, today patient is lying in the bed passing gas and but no BM, want to eat ice creame seen by her surgeon, recommneded to advance diet as tolrted, and acitivities, patient will benefit going to rehab, family is working with [facility], clinically stable will continue to monitor. (2) Pneumonia: Code(s): J18.9 - Pneumonia, unspecified organism Status: Acute Assessment and Plan: Continue IV antibiotics. Respiratory status is okay. (3) Atrial fibrillation with rapid ventricular response: Code(s): I48.91 - Unspecified atrial fibrillation Status: Acute Assessment and Plan: Heart rate is improved. Cardiology consult (4) Rib fracture: Code(s): S22.39XA - Fracture of one rib, unspecified side, initial encounter for closed fracture Status: Acute (5) Hypoxia: Code(s): R09.02 - Hypoxemia Status: Acute Assessment and Plan: Complicated by pneumonia Continue oxygen as (6) Fall from ground level: Code(s): W18.30XA - Fall on same level, unspecified, initial encounter Status: Acute (7) Dehydration: Code(s): E86.0 - Dehydration Status: Acute Assessment and Plan: Monitor volume status (8) Multiple myeloma: Code(s): C90.00 - Multiple myeloma not having achieved remission Status: Acute (9) Small bowel obstruction: Code(s): K56.609 - Unspecified intestinal obstruction, unspecified as to partial versus complete obstruction Status: Acute Assessment and Plan: Appreciate surgical input Subjective Date/time seen: 04/06/23 16:29 Interval history: 04/06/2023 interval history: 87-year-old female presented with atrial fibrillation with RVR seen by Cardiology rate is trending down and control, however patient is also found to have incarcerated inguinal hernia, on 04/04 patient was taken to OR and had a surgical repair POD #2, today patient is lying in the bed passing gas and but no BM, want to eat ice creame seen by her surgeon, recommneded to advance diet as tolrted, and acitivities, patient will benefit going to rehab, family is working with [facility], clinically stable will continue to monitor. Review of Systems Review of Systems: ROS unobtainable: Yes unobtainable due to medical condition Exam Narrative: Elderly frail Patient is comfortable, NAD HEENT: eyes are clear and none icteric LUNGS: Normal respiratory effort ABD: Not distended Lower extremities: no edema SKIN: nonjaundiced Neuro: grossly intact. Objective Data Vital Signs Vital Signs: Vital Signs - 24 hr 04/05/23 18:00 04/05/23 17:45 04/05/23 19:58 Temperature 98.1 F Pulse Rate 93 102 H 94 Respiratory Rate 20 Blood Pressure 120/63 Pulse Oximetry 97 Oxygen Delivery Oxygen Flow Rate Fraction of Inspired Oxygen 04/05/23 20:00 04/05/23 20:00 04/05/23 23:05 Temperature 79.9 F L Pulse Rate 103 H 107 H 94 Respiratory Rate 22 H 18 Blood Pressure 119/77 Pulse Oximetry 97 95 Oxygen Delivery Nasal Cannula Oxygen Flow Rate 2 Fraction of Inspired Oxygen 04/05/23 23:07 04/05/23 23:12 04/05/23 22:00 Temperature Pulse Rate 103 H 103 H 100 Respiratory Rate 18 Blood Pressure Pulse Oximetry 95 Oxygen Delivery Nasal Cannula Oxygen Flow Rate 2 Fraction of Inspired Oxygen 04/06/23 05:46 04/06/23 07:57 04/06/23 10:04 Temperature 98.1 F 97.3 F L Puls
[2023-04-06 17:45] LABS: Glucose Point of Care 99 mg/dl (65-105)
[2023-04-06 22:03] LABS: Glucose Point of Care 96 mg/dl (65-105)
[2023-04-06] MEDS: SODIUM CHLORIDE 0.9% IV 1,000 ML 100 ML IV CONT (22:55)
[2023-04-06] MEDS: LATANOPROST 0.005% OP SOLN 2.5 ML BTL 1 DROP EACH EYE (22:56)
[2023-04-07] VITALS (14 sets, daily range): BP systolic 136–148; BP diastolic 66–82; PULSE 87–126; RESP 14–22; TEMP 36.4–36.8; O2SAT 94–100
[2023-04-07] MEDS: METOPROLOL TARTRATE INJ 5 MG/5 ML VIAL 2.5 MG IV PUSH ×5 (00:22→23:14)
[2023-04-07 05:43] LABS: Hematocrit 29.4 % (37.0-47.0); Hemoglobin 9.3 g/dL (12.0-15.0); Mean Corpuscular HGB Conc 31.6 g/dl (32-36); Mean Corpuscular Hemoglobin 32.7 pg (26-34); Mean Corpuscular Volume 103.5 fl (80-100); Mean Platelet Volume 9.8 fl (7.4-10.4); Platelet Count Result 103 k/mm3 (150-375); Red Blood Count 2.84 M/mm3 (4.2-5.4); Red Cell Distribution Width 17.7 % (11.5-14.5)
[2023-04-07 05:51] LABS: Anion Gap 5 mmol/L (8-16); Blood Urea Nitrogen 24 mg/dL (7-17); Calcium 7.2 mg/dL (8.4-10.2); Carbon Dioxide 24 mmol/L (22-30); Chloride 108 mmol/L (98-107); Estimated CRCL calculation 37 ml/min; Estimated Glomerular Filt Rate > 60; Glucose 84 mg/dL (65-110); Potassium 3.2 mmol/L (3.4-5.0); Sodium 137 mmol/L (137-145)
[2023-04-07] MEDS: LEVOTHYROXINE SODIUM INJ 100 MCG/5 ML VIAL 37.5 MCG IV PUSH (06:03)
[2023-04-07] MEDS: AMPICILLIN SULB 3 GM/NS 100 ML 3 GM/100 ML VIAL IVPB ×3 (06:04→21:19)
[2023-04-07 07:59] LABS: Glucose Point of Care 70 mg/dl (65-105)
[2023-04-07 08:08] LABS: Glucose Point of Care 97 mg/dl (65-105)
[2023-04-07] MEDS: PANTOPRAZOLE SODIUM IV 40 MG VIAL IV PUSH (08:34)
[2023-04-07] MEDS: MORPHINE SULFATE (*CRX) 2 MG/ML INJ IV PUSH (08:40)
[2023-04-07] MEDS: SODIUM CHLORIDE 0.9% IV 1,000 ML 100 ML IV CONT (08:41)
--- NOTE | 2023-04-07 10:05 | PM.PNCARD ---
Progress Note: A&P Assessment and Plan (1) Atrial fibrillation with rapid ventricular response: Code(s): I48.91 - Unspecified atrial fibrillation Status: Acute Assessment and Plan: Possibly new diagnosis. Records from prior hospitalization at an outside hospital document an EKG suggestive of either atrial fibrillation with RVR or atrial tachycardia with subsequent conversion to sinus rhythm. She does have atrial fibrillation with rapid ventricular response demonstrated by EKG from this hospitalization. Probably secondary to acute illness and pain related to SBO. Chronicity of her atrial fibrillation is unknown. For now, we will pursue a rate control strategy. Continue metoprolol. Heart rate is reasonably controlled at present. Will hold off on anticoagulation until okay with surgery team. She also has a history of anemia on anticoagulation, may not be able to tolerate systemic anticoagulation. Initiate anticoagulation when okay per surgery. Can consider referral for Watchman device if she is unable to tolerate anticoagulation echocardiogram from outside hospital in November of this year showed normal systolic function, moderate pulmonary hypertension, mild TR, moderate MR. Currently obtaining IV fluids. Caution with iatrogenic volume overload. (2) Volume overload: Code(s): E87.70 - Fluid overload, unspecified Status: Acute Assessment and Plan: She is multiple L positive especially the past couple of days. Will reduce her IV fluids to normal saline 50 cc/hours. Will also give her 20 mg IV furosemide x1 Subjective Date/time seen: 04/07/23 10:05 Interval history: [id number] admitted for small-bowel obstruction. Cardiology consultation for atrial fibrillation and preoperative evaluation Date of service 04/04/2023: Awaiting surgery today. Heart rate is still controlled. No chest pain or shortness of breath Date of service 04/05/2023: She is somnolent post surgery. Heart rate is controlled. No active chest pain Date of service 04/07/2023: Heart rate still reasonably controlled. She is more awake alert today. No chest pain. She does feel short breath. Review of Systems Review of Systems: All systems reviewed & are unremarkable except as noted in HPI and below Constitutional: Constitutional: Denies body ache(s) ENT: Reports Normal hearing present Cardiovascular: Cardiovascular: Denies chest pain and Denies dyspnea Respiratory: Respiratory: Denies dyspnea Gastrointestinal: Gastrointestinal: Denies abdominal pain Genitourinary: Genitourinary: Denies hematuria Integumentary/Breasts: Skin/Breast: Denies breast pain Neurologic: Reports Normal hearing present Hematologic/Lymphatic: Hematologic/Lymphatic: Denies easy bleeding Exam Const: General: comfortable, no acute distress, alert and awake Other: some confusion, memory loss HENMT: Head: normal to inspection Other: NG in place Eyes: General: appearance normal, both eyes and all related structures Sclera: sclerae normal Pupils: Equal, round and reactive pupils present Neck: Neck: normal visual inspection, supple and no JVD Carotids: normal carotid upstroke Resp: Effort & Inspection: normal respiratory effort Auscultation: clear to auscultation bilaterally and diminished lung sounds Cardio: Rate: regular rate and tachycardic Rhythm: abnormal rhythm irregularly irregular Heart sounds: S1 normal heart sound present, S2 normal heart sound present and no murmurs GI: Inspection: distended Auscultation: normal bowel sounds and abnormal bowel sounds Skin: General skin exam: normal color Neuro: Cranial nerves: Yes Equal, round and reactive pupils present and Yes Normal hearing present Speech: normal speech Sensory Exam: normal sensation Extrem: General: normal to inspection Psych: Appearance: grossly normal Mental Status: mental status grossly normal Objective Data Vital
[2023-04-07 11:45] LABS: Glucose Point of Care 97 mg/dl (65-105)
[2023-04-07] MEDS: BISACODYL 10 MG SUPPOSITORY RECTAL (11:51)
[2023-04-07] MEDS: AZITHROMYCIN 500 MG/NS 250 ML 500 MG/250 ML BAG 250 MG IVPB (11:51)
[2023-04-07] MEDS: FUROSEMIDE INJ 40 MG/4 ML VIAL 20 MG IV PUSH (11:51)
[2023-04-07 14:39] LABS: INR 1.4; Prothrombin Time 18.1 Seconds (11.1-14.7)
--- NOTE | 2023-04-07 14:39 | WPDPN ---
Progress Note: A&P Assessment and Plan (1) Acute kidney injury: Code(s): N17.9 - Acute kidney failure, unspecified Status: Acute Assessment and Plan: Continue IV fluids, monitor kidney function. Creatinine improved. 04/07/2023 interval history: 87-year-old female presented with atrial fibrillation with RVR seen by Cardiology rate is trending down and control, will start Heparin for anticoagulation, however patient is also found to have incarcerated inguinal hernia, on 04/04 patient was taken to OR and had a surgical repair POD #3, today patient is lying in the bed passing gas and had a small BM, patient had a roast beef sandwich, seen by her surgeon, recommneded to advance diet as tolrted, and acitivities, patient will benefit going to rehab, [facility] is working with [facility], clinically stable will continue to monitor. (2) Pneumonia: Code(s): J18.9 - Pneumonia, unspecified organism Status: Acute Assessment and Plan: Continue IV antibiotics. Respiratory status is okay. (3) Atrial fibrillation with rapid ventricular response: Code(s): I48.91 - Unspecified atrial fibrillation Status: Acute Assessment and Plan: Heart rate is improved. Cardiology consult (4) Rib fracture: Code(s): S22.39XA - Fracture of one rib, unspecified side, initial encounter for closed fracture Status: Acute (5) Hypoxia: Code(s): R09.02 - Hypoxemia Status: Acute Assessment and Plan: Complicated by pneumonia Continue oxygen as (6) Fall from ground level: Code(s): W18.30XA - Fall on same level, unspecified, initial encounter Status: Acute (7) Dehydration: Code(s): E86.0 - Dehydration Status: Acute Assessment and Plan: Monitor volume status (8) Multiple myeloma: Code(s): C90.00 - Multiple myeloma not having achieved remission Status: Acute (9) Small bowel obstruction: Code(s): K56.609 - Unspecified intestinal obstruction, unspecified as to partial versus complete obstruction Status: Acute Assessment and Plan: Appreciate surgical input Subjective Date/time seen: 04/07/23 14:39 Interval history: 04/07/2023 interval history: 87-year-old female presented with atrial fibrillation with RVR seen by Cardiology rate is trending down and control, will start Heparin for anticoagulation, however patient is also found to have incarcerated inguinal hernia, on 04/04 patient was taken to OR and had a surgical repair POD #3, today patient is lying in the bed passing gas and had a small BM, patient had a roast beef sandwich, seen by her surgeon, recommneded to advance diet as tolrted, and acitivities, patient will benefit going to rehab, family is working with [facility], clinically stable will continue to monitor. Review of Systems Review of Systems: Twelve systems were reviewed and are negative except for as per HPI. Exam Narrative: Elderly frail Patient is comfortable, NAD HEENT: eyes are clear and none icteric LUNGS: Normal respiratory effort ABD: Not distended Lower extremities: no edema SKIN: nonjaundiced Neuro: grossly intact. Objective Data Vital Signs Vital Signs: Vital Signs - 24 hr 04/06/23 16:00 04/06/23 16:00 04/06/23 16:00 Temperature 97.7 F Pulse Rate 92 97 Respiratory Rate 14 Blood Pressure 114/66 Pulse Oximetry 99 Oxygen Delivery Room Air 04/06/23 18:58 04/06/23 19:18 04/06/23 19:19 Temperature 97.6 F 97.6 F Pulse Rate 92 77 81 Respiratory Rate 14 16 Blood Pressure 127/68 135/69 135/69 Pulse Oximetry 95 95 Oxygen Delivery 04/06/23 19:20 04/06/23 19:27 04/06/23 23:50 Temperature 98.1 F Pulse Rate 103 H 56 L 96 Respiratory Rate 14 Blood Pressure 146/90 H 137/83 137/84 Pulse Oximetry 96 Oxygen Delivery 04/07/23 00:22 04/06/23 21:45 04/06/23 20:00 Temperature Pulse Rate 96 98 Respiratory Rate
[2023-04-07 14:40] LABS: Partial Thromboplastin Time 31.5 SECONDS (22.3-36.8)
[2023-04-07 14:43] LABS: Hematocrit 31.1 % (37.0-47.0); Hemoglobin 9.8 g/dL (12.0-15.0); Mean Corpuscular HGB Conc 31.5 g/dl (32-36); Mean Corpuscular Hemoglobin 33.1 pg (26-34); Mean Corpuscular Volume 105.1 fl (80-100); Mean Platelet Volume 10.2 fl (7.4-10.4); Platelet Count Result 139 k/mm3 (150-375); Red Blood Count 2.96 M/mm3 (4.2-5.4); Red Cell Distribution Width 17.7 % (11.5-14.5); White Blood Count 13.2 K/mm3 (4.5-10.0)
[2023-04-07] MEDS: POTASSIUM CHLORIDE 20 MEQ PACKET (FOR LIQUID) 40 MEQ PO (14:52)
--- NOTE | 2023-04-07 14:58 | PM.PNGS ---
Progress Note: A&P Assessment and Plan (1) Strangulated ventral hernia: Code(s): K43.6 - Other and unspecified ventral hernia with obstruction, without gangrene Status: Acute Assessment and Plan: Resolved after open repair of the strangulated hernia with bowel resection. Bowel function has returned and she is tolerating regular diet. She is deconditioned and continues with therapy. Disposition for rehab versus halfway facility is pending. Continue management as per hospitalist. Surgically she can be discharged a follow-up Dr. Barba in the office in 1 to 2 weeks. Subjective Subjective Date/Time Seen: 04/07/23 14:58 Interval history: Patient seems to be doing well today. Tolerating her diet. Got a suppository this morning and had a bowel movement after. Working [place]. [place] [id number]. No fever. Cardiology has started anticoagulation for her AFib with RVR. I was contacted and it is okay to start systemic anticoagulation. Exam GI: Other: Abdomen is soft and nondistended. Small midline incision is intact without any redness or drainage. Sparks are in place. No recurrent hernia. Objective Data Vital Signs Vital Signs: Vital Signs - 24 hr 04/06/23 16:00 04/06/23 16:00 04/06/23 16:00 Temperature 36.5 C Pulse Rate 92 97 Respiratory Rate 14 Blood Pressure 114/66 Pulse Oximetry 99 Oxygen Delivery Room Air 04/06/23 18:58 04/06/23 19:18 04/06/23 19:19 Temperature 36.4 C 36.4 C Pulse Rate 92 77 81 Respiratory Rate 14 16 Blood Pressure 127/68 135/69 135/69 Pulse Oximetry 95 95 Oxygen Delivery 04/06/23 19:20 04/06/23 19:27 04/06/23 23:50 Temperature 36.7 C Pulse Rate 103 H 56 L 96 Respiratory Rate 14 Blood Pressure 146/90 H 137/83 137/84 Pulse Oximetry 96 Oxygen Delivery 04/07/23 00:22 04/06/23 21:45 04/06/23 20:00 Temperature Pulse Rate 96 98 Respiratory Rate Blood Pressure Pulse Oximetry Oxygen Delivery Room Air 04/07/23 00:00 04/07/23 04:00 04/07/23 04:00 Temperature 36.4 C Pulse Rate 99 108 H 103 H Respiratory Rate 14 Blood Pressure 136/80 Pulse Oximetry 94 Oxygen Delivery 04/07/23 06:03 04/07/23 08:00 04/07/23 08:30 Temperature 36.6 C Pulse Rate 126 H 102 H Respiratory Rate 16 Blood Pressure 139/82 Pulse Oximetry 96 Oxygen Delivery Room Air 04/07/23 11:52 04/07/23 11:56 04/07/23 12:00 Temperature 36.6 C Pulse Rate 108 H 101 H Respiratory Rate 16 Blood Pressure 143/81 H 137/73 Pulse Oximetry 99 Oxygen Delivery Intake/Output Intake/Output: Intake & Output 04/04/23 04/05/23 04/06/23 04/07/23 23:59 23:59 23:59 23:59 Intake Total 1650 3910 3090 1680 Output Total 1315 730 325 Balance 335 3180 2765 1680 Meds/Results Medications: Active Medications Generic Name Dose Route Start Last Admin Trade Name Freq PRN Reason Stop Dose Admin Acetaminophen 650 mg 04/05/23 13:13 04/05/23 20:53 Acetaminophen 325 Mg Tablet PO 650 mg Q4H PRN Administration Mild Pain (1-3) or Fever Amlodipine Besylate 5 mg 04/03/23 09:00 04/03/23 09:52 Amlodipine Besylate 5 Mg Tablet PO 5 mg DAILY SKYLER Administration Gabapentin 800 mg 04/03/23 09:00 04/03/23 16:55 Gabapentin 400 Mg Capsule PO Not Given TID SKYLER Heparin Sodium (Porcine) 2,500 units 04/07/23 10:38 Heparin Sodium 5,000 Units/Ml Vial IV PUSH PRN PRN aPTT 55 - 70 seconds Heparin Sodium (Porcine) 5,000 units 04/07/23 10:38 Heparin Sodium 5,000 Units/Ml Vial IV PUSH PRN PRN aPTT less than 55 seconds Azithromycin 500 mg in 250 mls @ 250 mls/hr 04/03/23 12:00 04/07/23 11:51 Zithromax IVPB 250 mls/hr Q24H SKYLER Administration Sodium Chloride 1,000 mls @ 50 mls/hr 04/02/23 12:35 04/07/23 10:55 Normal Saline Iv IV CONT 50 mls/hr .Q20H SKYLER Infusion Ampicillin Sodium/Sulbactam Sodium 3 gm in 100 mls @ 20
[2023-04-07 16:16] LABS: Band Neutrophils Percent 7 % (0-6); Lymphocytes Absolute Manual 0.79 K/mm3 (1.1-4.5); Neutrophils Percent Manual 87 % (46-73); Total Cells Counted 100
[2023-04-07 16:17] LABS: Hypochromasia 1+ (NORMAL); Platelet Estimate Decreased (Adequate); Schistocytes None Seen (NORMAL)
[2023-04-07 16:18] LABS: Anisocytosis 2+ (NORMAL)
[2023-04-07 17:31] LABS: Glucose Point of Care 100 mg/dl (65-105)
[2023-04-07] MEDS: LATANOPROST 0.005% OP SOLN 2.5 ML BTL 1 DROP EACH EYE (21:19)
[2023-04-07 23:00] LABS: Glucose Point of Care 108 mg/dl (65-105)
[2023-04-08] VITALS (17 sets, daily range): BP systolic 124–156; BP diastolic 73–86; PULSE 81–124; RESP 16–29; TEMP 36.4–36.7; O2SAT 95–100
[2023-04-08] MEDS: METOPROLOL TARTRATE INJ 5 MG/5 ML VIAL 2.5 MG IV PUSH ×4 (05:15→23:06)
[2023-04-08] MEDS: LEVOTHYROXINE SODIUM INJ 100 MCG/5 ML VIAL 37.5 MCG IV PUSH (05:15)
[2023-04-08] MEDS: AMPICILLIN SULB 3 GM/NS 100 ML 3 GM/100 ML VIAL IVPB ×3 (05:16→22:30)
[2023-04-08 05:59] LABS: Basophils Absolute Auto 0.1 K/mm3 (0.0-0.1); Basophils Percent Auto 0.7 % (0.2-1.2); Eosinophils Absolute Auto 0.1 K/mm3 (0-0.3); Eosinophils Percent Auto 0.7 % (0-4.4); Hematocrit 30.3 % (37.0-47.0); Hemoglobin 9.7 g/dL (12.0-15.0); Immature Granulocyte Absolute 0.04 K/mm3 (0.00-0.031); Immature Granulocyte Percent A 0.4 % (0-0.5); Immature Platelet Fraction Pct 5.2 % (0.9-11.2); Lymphocytes Absolute Auto 1.11 K/mm3 (0.9-3.2); Lymphocytes Percent Auto 11.2 % (18.3-44.2); Mean Corpuscular Volume 103.1 fl (80-100); Mean Platelet Volume 10.4 fl (7.4-10.4); Monocytes Absolute Auto 0.1 K/mm3 (0.1-0.6); Monocytes Percent Auto 1.3 % (2.6-8.5); Neutrophils Absolute Auto 8.5 K/mm3 (1.3-6.7); Neutrophils Percent Auto 85.7 % (45.5-73.1); Platelet Count Result 134 k/mm3 (150-375); Red Blood Count 2.94 M/mm3 (4.2-5.4); Red Cell Distribution Width 17.9 % (11.5-14.5); White Blood Count 9.9 K/mm3 (4.5-10.0)
[2023-04-08 06:09] LABS: Anion Gap 6 mmol/L (8-16); Blood Urea Nitrogen 21 mg/dL (7-17); Calcium 7.5 mg/dL (8.4-10.2); Carbon Dioxide 25 mmol/L (22-30); Chloride 108 mmol/L (98-107); Estimated CRCL calculation 42 ml/min; Estimated Glomerular Filt Rate > 60; Glucose 97 mg/dL (65-110); Potassium 3.5 mmol/L (3.4-5.0); Sodium 139 mmol/L (137-145)
[2023-04-08 06:16] LABS: Legionella pneumophila Ag Ur Detected (Not Detected)
[2023-04-08] MEDS: PANTOPRAZOLE SODIUM IV 40 MG VIAL IV PUSH (08:01)
--- NOTE | 2023-04-08 08:50 | PC.NURSE ---
Dr Felix notified of the Legionella Pneumophila Ag Ur detected, range Not Detected today, this am. Critical Value not called to any provider or Nurse by [facility]. Dr Felix will look into it and address.
[2023-04-08 09:06] LABS: Glucose Point of Care 80 mg/dl (65-105)
--- NOTE | 2023-04-08 09:06 | PM.PNCARD ---
Progress Note: A&P Assessment and Plan (1) Atrial fibrillation with rapid ventricular response: Code(s): I48.91 - Unspecified atrial fibrillation Status: Acute Assessment and Plan: Possibly new diagnosis. Records from prior hospitalization at an outside hospital document an EKG suggestive of either atrial fibrillation with RVR or atrial tachycardia with subsequent conversion to sinus rhythm. She does have atrial fibrillation with rapid ventricular response demonstrated by EKG from this hospitalization. Probably secondary to acute illness and pain related to SBO. Chronicity of her atrial fibrillation is unknown. For now, we will pursue a rate control strategy. Continue metoprolol. Heart rate is reasonably controlled at present. Okay with anticoagulation per surgery team. Will start Eliquis 2.5 mg p.o. b.i.d. Can consider referral for Watchman device if she is unable to tolerate anticoagulation echocardiogram from outside hospital in November of this year showed normal systolic function, moderate pulmonary hypertension, mild TR, moderate MR. DC IV fluids (2) Volume overload: Code(s): E87.70 - Fluid overload, unspecified Status: Acute Assessment and Plan: Furosemide 20 mg IV x1 Subjective Date/time seen: 04/08/23 09:06 Interval history: [id number] admitted for small-bowel obstruction. Cardiology consultation for atrial fibrillation and preoperative evaluation Date of service 04/04/2023: Awaiting surgery today. Heart rate is still controlled. No chest pain or shortness of breath Date of service 04/05/2023: She is somnolent post surgery. Heart rate is controlled. No active chest pain Date of service 04/07/2023: Heart rate still reasonably controlled. She is more awake alert today. No chest pain. She does feel short breath. Date of service 04/08/2023: Could not obtain IV to start heparin drip yesterday. She has some mild dyspnea but no chest pain or swelling Review of Systems Review of Systems: All systems reviewed & are unremarkable except as noted in HPI and below Constitutional: Constitutional: Denies body ache(s) ENT: Reports Normal hearing present Cardiovascular: Cardiovascular: Denies chest pain and Denies dyspnea Respiratory: Respiratory: Denies dyspnea Gastrointestinal: Gastrointestinal: Denies abdominal pain Genitourinary: Genitourinary: Denies hematuria Integumentary/Breasts: Skin/Breast: Denies breast pain Neurologic: Reports Normal hearing present Hematologic/Lymphatic: Hematologic/Lymphatic: Denies easy bleeding Exam Const: General: comfortable, no acute distress, alert and awake Other: some confusion, memory loss HENMT: Head: normal to inspection Other: NG in place Eyes: General: appearance normal, both eyes and all related structures Sclera: sclerae normal Pupils: Equal, round and reactive pupils present Neck: Neck: normal visual inspection, supple and no JVD Carotids: normal carotid upstroke Resp: Effort & Inspection: normal respiratory effort Auscultation: clear to auscultation bilaterally and diminished lung sounds Cardio: Rate: regular rate and tachycardic Rhythm: abnormal rhythm irregularly irregular Heart sounds: S1 normal heart sound present, S2 normal heart sound present and no murmurs GI: Inspection: distended Auscultation: normal bowel sounds and abnormal bowel sounds Skin: General skin exam: normal color Neuro: Cranial nerves: Yes Equal, round and reactive pupils present and Yes Normal hearing present Speech: normal speech Sensory Exam: normal sensation Extrem: General: normal to inspection Psych: Appearance: grossly normal Mental Status: mental status grossly normal Objective Data Vital Signs Vital Signs: Vital Signs - 24 hr 04/07/23 11:52 04/07/23 11:56 04/07/23 12:00 Temperature 36.6 C Pulse Rate 108 H 101 H Respiratory Rate 16 Blood Pressure 143/81 H 137/73 Puls
[2023-04-08] MEDS: POTASSIUM CHLORIDE 20 MEQ PACKET (FOR LIQUID) 40 MEQ PO (09:58)
[2023-04-08] MEDS: APIXABAN 2.5 MG TABLET PO ×2 (09:58→20:21)
[2023-04-08] MEDS: FUROSEMIDE INJ 40 MG/4 ML VIAL 20 MG IV PUSH (09:58)
--- NOTE | 2023-04-08 11:10 | WPDPN ---
Progress Note: A&P Assessment and Plan (1) Acute kidney injury: Code(s): N17.9 - Acute kidney failure, unspecified Status: Acute Assessment and Plan: Continue IV fluids, monitor kidney function. Creatinine improved. 04/08/2023 interval history: 87-year-old female presented with atrial fibrillation with RVR seen by Cardiology rate is trending down and control, plan was start Heparin for anticoagulation however unable to establish IV line, slab inspector decided to start Eliquis, also patient is also found to have incarcerated inguinal hernia, on 04/04 patient was taken to OR and had a surgical repair POD #4, today patient is lying in the bed passing gas and had a BM, seen by her surgeon, recommneded to advance diet as tolerated and acitivities, Patient urine Legionnair pneumonia, patient is on zithromycin, chest x-ray showed consolidation, patient has no fever and her clinically symptoms are improving, will discuss with ID pharmacy and further recommendation to follow, patient is present in the room, patient will benefit going to rehab, family is working with palliative care nurse, clinically stable will continue to monitor. (2) Pneumonia: Code(s): J18.9 - Pneumonia, unspecified organism Status: Acute Assessment and Plan: Continue IV antibiotics. Respiratory status is okay. (3) Atrial fibrillation with rapid ventricular response: Code(s): I48.91 - Unspecified atrial fibrillation Status: Acute Assessment and Plan: Heart rate is improved. Cardiology consult (4) Rib fracture: Code(s): S22.39XA - Fracture of one rib, unspecified side, initial encounter for closed fracture Status: Acute (5) Hypoxia: Code(s): R09.02 - Hypoxemia Status: Acute Assessment and Plan: Complicated by pneumonia Continue oxygen as (6) Fall from ground level: Code(s): W18.30XA - Fall on same level, unspecified, initial encounter Status: Acute (7) Dehydration: Code(s): E86.0 - Dehydration Status: Acute Assessment and Plan: Monitor volume status (8) Multiple myeloma: Code(s): C90.00 - Multiple myeloma not having achieved remission Status: Acute (9) Small bowel obstruction: Code(s): K56.609 - Unspecified intestinal obstruction, unspecified as to partial versus complete obstruction Status: Acute Assessment and Plan: Appreciate surgical input Subjective Date/time seen: 04/08/23 11:10 Interval history: 04/08/2023 interval history: 87-year-old female presented with atrial fibrillation with RVR seen by Cardiology rate is trending down and control, plan was start Heparin for anticoagulation however unable to establish IV line, slab inspector decided to start Eliquis, also patient is also found to have incarcerated inguinal hernia, on 04/04 patient was taken to OR and had a surgical repair POD #4, today patient is lying in the bed passing gas and had a BM, seen by her surgeon, recommneded to advance diet as tolerated and acitivities, Patient urine Legionnair pneumonia, patient is on zithromycin, chest x-ray showed consolidation, patient has no fever and her clinically symptoms are improving, will discuss with ID pharmacy and further recommendation to follow, patient is present in the room, patient will benefit going to rehab, family is working with palliative care nurse, clinically stable will continue to monitor. Review of Systems Review of Systems: ROS unobtainable: Yes unobtainable due to medical condition Exam Narrative: Elderly frail Patient is comfortable, NAD HEENT: eyes are clear and none icteric LUNGS: Normal respiratory effort ABD: Not distended Lower extremities: no edema SKIN: nonjaundiced Neuro: grossly intact. Objective Data Vital Signs Vital Signs: Vital Signs - 24 hr 04/07/23 11:52 04/07/23 11:56 04/07/23 12:00 Temperature 97.9 F Pulse Rate 108 H 101 H Respir
[2023-04-08] MEDS: AZITHROMYCIN 500 MG/NS 250 ML 500 MG/250 ML BAG 250 MG IVPB (11:49)
[2023-04-08 12:12] LABS: Glucose Point of Care 126 mg/dl (65-105)
--- NOTE | 2023-04-08 12:49 | PM.PNGS ---
Progress Note: A&P Assessment and Plan (1) Strangulated ventral hernia: Code(s): K43.6 - Other and unspecified ventral hernia with obstruction, without gangrene Status: Acute Assessment and Plan: Patient seems to be doing well postoperatively. First surgical standpoint she can be discharged when medically stable. He has had halina in place and will need to come back to the office in 1 to 2 weeks to have the halina removed. Subjective Subjective Date/Time Seen: 04/08/23 12:49 Interval history: Patient is doing well today. She has no complaints. Tolerating diet having bowel movements. Remains in house due to her other medical conditions. She is directed to go to a swing bed at time of discharge. Exam GI: Other: Abdomen is soft and nondistended. Midline incision is healing well without any redness or drainage. Halina are in place. No recurrent hernia or seroma. Objective Data Vital Signs Vital Signs: Vital Signs - 24 hr 04/07/23 18:24 04/07/23 16:00 04/07/23 18:30 Temperature 36.8 C Pulse Rate 91 97 100 Respiratory Rate 14 Blood Pressure 143/70 H Pulse Oximetry 98 04/07/23 20:00 04/07/23 20:00 04/07/23 22:00 Temperature 36.4 C Pulse Rate 87 113 H 101 H Respiratory Rate 22 H Blood Pressure 141/78 H 148/66 H Pulse Oximetry 100 04/07/23 23:14 04/08/23 00:00 04/08/23 04:00 Temperature Pulse Rate 93 91 108 H Respiratory Rate Blood Pressure Pulse Oximetry 04/08/23 02:00 04/08/23 05:15 04/08/23 06:00 Temperature 36.4 C L 36.4 C Pulse Rate 95 96 111 H Respiratory Rate 20 22 H Blood Pressure 144/76 H 152/81 H Pulse Oximetry 100 98 04/08/23 08:20 04/08/23 11:48 04/08/23 12:35 Temperature Pulse Rate 94 105 H Respiratory Rate 29 H Blood Pressure 156/73 H 124/76 Pulse Oximetry 95 04/08/23 12:38 Temperature Pulse Rate Respiratory Rate Blood Pressure 126/76 Pulse Oximetry Intake/Output Intake/Output: Intake & Output 04/05/23 04/06/23 04/07/23 04/08/23 23:59 23:59 23:59 23:59 Intake Total 3910 3090 2330 460 Output Total 730 325 Balance 3180 2369 2330 460 Meds/Results Medications: Active Medications Generic Name Dose Route Start Last Admin Trade Name Freq PRN Reason Stop Dose Admin Acetaminophen 650 mg 04/05/23 13:13 04/05/23 20:53 Acetaminophen 325 Mg Tablet PO 650 mg Q4H PRN Administration Mild Pain (1-3) or Fever Amlodipine Besylate 5 mg 04/03/23 09:00 04/03/23 09:52 Amlodipine Besylate 5 Mg Tablet PO 5 mg DAILY SKYLER Administration Apixaban 2.5 mg 04/08/23 09:15 04/08/23 09:58 Apixaban 2.5 Mg Tablet PO 2.5 mg Q12HR SKYLER Administration Gabapentin 800 mg 04/03/23 09:00 04/03/23 16:55 Gabapentin 400 Mg Capsule PO Not Given TID SKYLER Azithromycin 500 mg in 250 mls @ 250 mls/hr 04/03/23 12:00 04/08/23 11:49 Zithromax IVPB 250 mls/hr Q24H SKYLER Administration Ampicillin Sodium/Sulbactam Sodium 3 gm in 100 mls @ 200 mls/hr 04/05/23 10:00 04/08/23 05:46 Unasyn 3 Gm/Ns 100 Ml IVPB Infused Q8HR SKYLER Infusion Latanoprost 1 drop 04/03/23 21:00 04/07/23 21:19 Latanoprost 0.005% Op Soln 2.5 Ml Btl EACH EYE 1 drop HS SKYLER Administration Levothyroxine Sodium 75 mcg 04/03/23 06:30 04/03/23 06:06 Levothyroxine Sodium 75 Mcg Tablet PO Not Given DAILY@0630 SKYLER Levothyroxine Sodium 37.5 mcg 04/04/23 06:30 04/08/23 05:15 Levothyroxine Sodium Inj 100 Mcg/5 Ml Vial IV PUSH 37.5 mcg DAILY@0630 SKYLER Administration Metoprolol Tartrate 12.5 mg 04/03/23 09:00 04/03/23 12:33 Metoprolol Tartrate 12.5 Mg Tablet PO 12.5 mg QID SKYLER Administration Metoprolol Tartrate 2.5 mg 04/03/23 18:00 04/08/23 11:48 Metoprolol Tartrate Inj 5 Mg/5 Ml Vial IV PUSH 2.5 mg Q6H SKYLER Administration Morphine Sulfate 2 mg 04/04/23 17:01 04/07/23 08:40 Morphine Sulfate (*Crx) 2 Mg/Ml Inj IV PUSH 2 mg Q4H PRN
[2023-04-08 16:53] LABS: Glucose Point of Care 84 mg/dl (65-105)
[2023-04-08] MEDS: PARoxetine 20 MG TABLET PO (17:08)
[2023-04-08 17:42] LABS: Hemoglobin 9.7 g/dL (12.0-15.0)
[2023-04-08] MEDS: LATANOPROST 0.005% OP SOLN 2.5 ML BTL 1 DROP EACH EYE (20:21)
[2023-04-08 21:21] LABS: Glucose Point of Care 88 mg/dl (65-105)
[2023-04-09] VITALS (10 sets, daily range): BP systolic 149–160; BP diastolic 73–105; PULSE 89–108; RESP 16–222; TEMP 36.1–36.6; O2SAT 96–100
[2023-04-09 05:32] LABS: Hematocrit 29.5 % (37.0-47.0); Hemoglobin 9.5 g/dL (12.0-15.0); Mean Corpuscular HGB Conc 32.2 g/dl (32-36); Mean Corpuscular Hemoglobin 32.9 pg (26-34); Mean Corpuscular Volume 102.1 fl (80-100); Mean Platelet Volume 9.4 fl (7.4-10.4); Platelet Count Result 114 k/mm3 (150-375); Red Blood Count 2.89 M/mm3 (4.2-5.4); Red Cell Distribution Width 17.9 % (11.5-14.5); White Blood Count 7.5 K/mm3 (4.5-10.0)
[2023-04-09 05:44] LABS: Anion Gap 3 mmol/L (8-16); Blood Urea Nitrogen 18 mg/dL (7-17); Calcium 7.7 mg/dL (8.4-10.2); Carbon Dioxide 28 mmol/L (22-30); Chloride 106 mmol/L (98-107); Estimated CRCL calculation 42 ml/min; Estimated Glomerular Filt Rate > 60; Glucose 102 mg/dL (65-110); Magnesium 1.8 mg/dL (1.6-2.3); Potassium 4.1 mmol/L (3.4-5.0); Sodium 137 mmol/L (137-145)
[2023-04-09] MEDS: LEVOTHYROXINE SODIUM INJ 100 MCG/5 ML VIAL 37.5 MCG IV PUSH (05:59)
[2023-04-09] MEDS: AMPICILLIN SULB 3 GM/NS 100 ML 3 GM/100 ML VIAL IVPB (05:59)
[2023-04-09] MEDS: METOPROLOL TARTRATE INJ 5 MG/5 ML VIAL 2.5 MG IV PUSH ×2 (05:59→12:46)
[2023-04-09 08:24] LABS: Glucose Point of Care 70 mg/dl (65-105)
[2023-04-09] MEDS: APIXABAN 2.5 MG TABLET PO (08:39)
[2023-04-09] MEDS: PARoxetine 20 MG TABLET PO (08:39)
[2023-04-09] MEDS: PANTOPRAZOLE SODIUM IV 40 MG VIAL IV PUSH (08:39)
--- NOTE | 2023-04-09 09:34 | ECG_ITS ---
Measurements Intervals [place] Rate: 91 P: IA: 0 QRS: -39 QRSD: 101 T: 8 QT: 347 QTc: 428 Interpretive Statements ATRIAL FIBRILLATION LEFT AXIS DEVIATION INCOMPLETE RIGHT BUNDLE BRANCH BLOCK BORDERLINE T WAVE ABNORMALITY- INFERIOR LEADS BASELINE ARTIFACT- I, II, V1 ABNORMAL ECG COMPARED TO ECG 04/02/2023 07:25:51 HEART RATE HAS DECREASED LEFT-AXIS DEVIATION NOW PRESENT Electronically Signed On 04-09-2023 10:30:27 CDT by Yousif Davis D.O.
--- NOTE | 2023-04-09 09:50 | PCNFU ---
Nutrition Follow-Up Complete: Inadequate energy intake related to NPO status as evidenced by diet order. Diet advanced - Goal being met PO intake 50% or greater for meals - Progressing Goal: Pt current nutrition is Heart healthy diet, 25-75% intakes yesterday. Ensure Compact BID for additional 220 kcal and 9 g protein each. Nutrition recommendation: Continue current nutrition care plan. Agree with orders Last recorded weight is 59.1 kg. +14 lbs since admission Bowel Motility: +1 BM today 04/09/23. +5 BMs yesterday 04/08/23. Labs Reviewed: HHgb 2.5, Hct 29.5, BUN 18 Meds Noted: Zofran,protonix Skin: WNL Additional Notes: Per notes, pt likely to discharge to SNF soon. Intakes have improved. Continue with current orders Monitor intake, wt, labs. Follow up in 3 days.
[2023-04-09 12:04] LABS: Glucose Point of Care 89 mg/dl (65-105)
--- NOTE | 2023-04-09 12:53 | PM.DS ---
DS: Admitting Diagnosis Discharge Date 04/09/2023 Admitting Diagnosis fall DS: Discharge Diagnosis Discharge Diagnosis (1) Acute kidney injury: Code(s): N17.9 - Acute kidney failure, unspecified Status: Acute Assessment and Plan: Continue IV fluids, monitor kidney function. Creatinine improved. 04/08/2023 interval history: 87-year-old female presented with atrial fibrillation with RVR seen by Cardiology rate is trending down and control, plan was start Heparin for anticoagulation however unable to establish IV line, horologist decided to start Eliquis, also patient is also found to have incarcerated inguinal hernia, on 04/04 patient was taken to OR and had a surgical repair POD #4, today patient is lying in the bed passing gas and had a BM, seen by her surgeon, recommneded to advance diet as tolerated and acitivities, Patient urine Legionnair pneumonia, patient is on zithromycin, chest x-ray showed consolidation, patient has no fever and her clinically symptoms are improving, will discuss with ID pharmacy and further recommendation to follow, patient is present in the room, patient will benefit going to rehab, family is working with certified caregiver, clinically stable will continue to monitor. (2) Pneumonia: Code(s): J18.9 - Pneumonia, unspecified organism Status: Acute Assessment and Plan: Continue IV antibiotics. Respiratory status is okay. (3) Atrial fibrillation with rapid ventricular response: Code(s): I48.91 - Unspecified atrial fibrillation Status: Acute Assessment and Plan: Heart rate is improved. Cardiology consult (4) Rib fracture: Code(s): S22.39XA - Fracture of one rib, unspecified side, initial encounter for closed fracture Status: Acute (5) Hypoxia: Code(s): R09.02 - Hypoxemia Status: Acute Assessment and Plan: Complicated by pneumonia Continue oxygen as (6) Fall from ground level: Code(s): W18.30XA - Fall on same level, unspecified, initial encounter Status: Acute (7) Dehydration: Code(s): E86.0 - Dehydration Status: Acute Assessment and Plan: Monitor volume status (8) Multiple myeloma: Code(s): C90.00 - Multiple myeloma not having achieved remission Status: Acute (9) Small bowel obstruction: Code(s): K56.609 - Unspecified intestinal obstruction, unspecified as to partial versus complete obstruction Status: Acute Assessment and Plan: Appreciate surgical input DS: Summary Hospital Course Reason for hospitalization: Chief Complaint: Fall. Narrative: This is an 87-year-old female with multiple medical problems including history of deep venous thrombosis, pulmonary embolism, chronic atrial fibrillation no longer on anticoagulation with recent hospitalization for acute on chronic anemia requiring transfusion and left buttock hematoma, hypertension, hypothyroidism, multiple myeloma, and other comorbidities who presented to the emergency department via private vehicle from home for evaluation after a fall. The patient provides the following history; her provides additional information with the patient's permission. She was working in the garden on Sunday when she lost her balance, fell backwards, and struck her head on the ground. She seemed fine at that time and she thought the fall was probably related to the fact that she was over working herself. Since that time she has felt increasingly weak. Aside from a cough which has been occasionally productive of light yellow sputum, she has no specific complaints. With further questioning she does admit that her appetite has been poor and she has had a decrease in oral intake due to nausea. She endorses chills but she denies fever and sweats. She also denies headache, neck ache, sinus congestion, sore throat, chest pain, shortness a breath, vomiting, diarrhea, and dysuria. No sick contacts. she was afebril
[2023-04-09] MEDS: levoFLOXacin 750 MG TABLET PO (13:33)
[2023-04-09] MEDS: SALINE LOCK FLUSH 10 ML IV PUSH (13:33)
--- NOTE | 2023-04-09 15:35 | PM.PNGS ---
Progress Note: A&P Assessment and Plan (1) Strangulated ventral hernia: Code(s): K43.6 - Other and unspecified ventral hernia with obstruction, without gangrene Status: Acute Assessment and Plan: doing well, awaiting placement to rehab, cont to encourage po intake, OOB/IS Subjective Subjective Date/Time Seen: 04/09/23 15:35 Interval history: no acute issues, still not eating well Review of Systems Review of Systems: All systems reviewed & are unremarkable except as noted in HPI and below Exam Const: General: cooperative, comfortable and no acute distress Resp: Auscultation: diminished lung sounds Cardio: Rate: regular rate Rhythm: regular rhythm GI: Inspection: normal to inspection, non-distended and incision GI Palp: No abdominal tenderness, Yes Soft to palpation, No Tenderness to palpation present (GI), No Guarding due to palpation present (GI) and No Rigid due to palpation Objective Data Vital Signs Vital Signs: Vital Signs - 24 hr 04/08/23 16:01 04/08/23 18:40 04/08/23 20:00 Temperature 36.6 C Pulse Rate 118 H 85 92 Respiratory Rate 18 Blood Pressure 126/76 152/86 H Pulse Oximetry 96 Oxygen Delivery Fraction of Inspired Oxygen 04/08/23 20:33 04/08/23 20:00 04/08/23 23:06 Temperature 36.7 C Pulse Rate 92 97 109 H Respiratory Rate 22 H Blood Pressure 144/81 H Pulse Oximetry 96 Oxygen Delivery Fraction of Inspired Oxygen 04/09/23 00:00 04/09/23 04:00 04/09/23 05:59 Temperature Pulse Rate 90 93 94 Respiratory Rate Blood Pressure Pulse Oximetry Oxygen Delivery Fraction of Inspired Oxygen 04/09/23 02:00 04/09/23 06:00 04/09/23 09:34 Temperature 36.6 C 36.6 C 36.1 C L Pulse Rate 89 108 H 99 Respiratory Rate 222 H 22 H 20 Blood Pressure 149/77 H 158/105 H 160/78 H Pulse Oximetry 98 96 100 Oxygen Delivery Fraction of Inspired Oxygen 04/09/23 08:00 04/09/23 12:46 04/09/23 14:08 Temperature 36.6 C Pulse Rate 104 H 90 Respiratory Rate 16 Blood Pressure 152/73 H Pulse Oximetry 100 Oxygen Delivery Room Air Fraction of Inspired Oxygen 21 Intake/Output Intake/Output: Intake & Output 04/06/23 04/07/23 04/08/23 04/09/23 23:59 23:59 23:59 23:59 Intake Total 3090 2330 1400 510 Output Total 325 Balance 2765 2330 1400 510 Meds/Results Medications: Active Medications Generic Name Dose Route Start Last Admin Trade Name Freq PRN Reason Stop Dose Admin Acetaminophen 650 mg 04/05/23 13:13 04/05/23 20:53 Acetaminophen 325 Mg Tablet PO 650 mg Q4H PRN Administration Mild Pain (1-3) or Fever Amlodipine Besylate 5 mg 04/03/23 09:00 04/03/23 09:52 Amlodipine Besylate 5 Mg Tablet PO 5 mg DAILY SKYLER Administration Apixaban 2.5 mg 04/08/23 09:15 04/09/23 08:39 Apixaban 2.5 Mg Tablet PO 2.5 mg Q12HR SKYLER Administration Gabapentin 800 mg 04/03/23 09:00 04/03/23 16:55 Gabapentin 400 Mg Capsule PO Not Given TID SKYLER Latanoprost 1 drop 04/03/23 21:00 04/08/23 20:21 Latanoprost 0.005% Op Soln 2.5 Ml Btl EACH EYE 1 drop HS SKYLER Administration Levofloxacin 750 mg 04/09/23 14:00 04/09/23 13:33 Levofloxacin 750 Mg Tablet PO 04/13/23 09:01 750 mg Q48HR SKYLER Administration Levothyroxine Sodium 75 mcg 04/03/23 06:30 04/03/23 06:06 Levothyroxine Sodium 75 Mcg Tablet PO Not Given DAILY@0630 [facility] Levothyroxine Sodium 37.5 mcg 04/04/23 06:30 04/09/23 05:59 Levothyroxine Sodium Inj 100 Mcg/5 Ml Vial IV PUSH 37.5 mcg DAILY@0630 SKYLER Administration Metoprolol Tartrate 12.5 mg 04/03/23 09:00 04/03/23 12:33 Metoprolol Tartrate 12.5 Mg Tablet PO 12.5 mg QID SKYLER Administration Metoprolol Tartrate 2.5 mg 04/03/23 18:00 04/09/23 12:46 Metoprolol Tartrate Inj 5 Mg/5 Ml Vial IV PUSH 2.5 mg Q6H SKYLER Administration Morphine Sulfate 2 mg 04/04/23 17:01 04/07/23 08:40 Morphine Sulfate (*Crx) 2 Mg/Ml Inj
== END 2023-04-09 16:45 | DRG 329 ==
LOC: ANHED 07:41 → ANHIMU 13:28 → ANH2MED 04-06 18:38
PROVIDERS: Chiropractor; Internal Medicine Cardiovascular Disease; Physician Assistant; Surgery; Admitting Provider Internal Medicine; Emergency Provider General Practice; PCP Family Medicine; Visit Provider Family Medicine
PROC: 0WQF0ZZ Repair Abdominal Wall, Open Approach (ICD-10-PCS; principal; 2023-04-04 14:15)
DX: K43.6 Other and unspecified ventral hernia with obstruction, without gangrene (principal); J18.9 Pneumonia, unspecified organism; K56.609 Unspecified intestinal obstruction, unspecified as to partial versus complete obstruction; C90.00 Multiple myeloma not having achieved remission; I48.20 Chronic atrial fibrillation, unspecified; N17.9 Acute kidney failure, unspecified; S22.42XA Multiple fractures of ribs, left side, initial encounter for closed fracture; D63.0 Anemia in neoplastic disease; E87.70 Fluid overload, unspecified; E86.0 Dehydration; E03.9 Hypothyroidism, unspecified; F32.A Depression, unspecified; G89.4 Chronic pain syndrome; H40.9 Unspecified glaucoma; I10 Essential (primary) hypertension; I48.91 Unspecified atrial fibrillation; M54.2 Cervicalgia; N32.81 Overactive bladder; I27.20 Pulmonary hypertension, unspecified; W19.XXXA Unspecified fall, initial encounter; Z20.822 Contact with and (suspected) exposure to COVID-19; Z86.711 Personal history of pulmonary embolism; Z53.31 Laparoscopic surgical procedure converted to open procedure; Z86.718 Personal history of other venous thrombosis and embolism
CPT/HCPCS: 36415; 36569; 36600; 70450; 71045; 71250; 72125; 74018; 74176; 76775; 80048; 80053; 81001; 82375; 82565; 82805; 82948; 83050; 83605; 83735; 83880; 84443; 84484; 85014; 85018; 85025; 85027; 85055; 85610; 85730; 86738; 87040; 87077; 87081; 87147; 87181; 87186; 87449; 87636; 87899; 88307; 93005; 96361; 96365; 96367; 96375; 96376; 97110; 97161; 97166; 97530; 97535; 99285; A9270; C1751; C9113; G0378; J0295; J0456; J0696; J1170; J1940; J2270; J2405; J3010; J3370; J7030; J7120; J7512

== ENCOUNTER 2023-04-12 14:20 | Emergency (ER) | payer OTHER, MEDICARE, SELFPAY ==
[2023-04-12] VITALS (7 sets, daily range): BP systolic 133; BP diastolic 82; PULSE 74–85; RESP 15–20; TEMP 36.3; O2SAT 97
--- NOTE | ~2023-04-12 | CT_ITS ---
EXAMINATION: CT abdomen pelvis w con DATE: 04/12/2023 17:50 INDICATION: Lower abdominal distention TECHNIQUE: Computed tomography (CT) of the abdomen and pelvis was performed with 100 cc Omnipaque 350 intravenous contrast. The dose-length product was 438.98 mGy-cm. Automated exposure control and iter ative reconstruction technique were employed. COMPARISON: CT dated 04/03/2023. FINDINGS: There is a persistent left spigelian hernia. There is a midline vertically oriented incisio n with incisional hernia containing bowel. There is a surgical anastomosis of the underlying bowel. T here is hypervascularity area of the liver along the right hepatic lobe anterior margin, likely trans ient hepatic attenuation difference. The spleen, pancreas, adrenal glands are unremarkable. Left julian l atrophy. No hydronephrosis. No significant vascular abnormality. Mild subcutaneous edema. There are surgical changes in the proximal femurs bilaterally. Severe lumbar spondylosis. IMPRESSION: 1. Ventral midline surgical staple line with hernia is identified along the margin of the staple line containing nonobstructed bowel. 2: Persistent left lower abdominal spigelian hernia containing nonspecific soft tissue and fat. Reviewed, dictated and finalized at location A. IMPRESSION: 1. Ventral midline surgical staple line with hernia is identified along the mar gin of the staple line containing nonobstructed bowel. 2: Persistent left lower abdominal spigelian hernia containing nonspecific soft tissue and fat.
--- NOTE | 2023-04-12 16:13 | ED.GENADULT ---
HPI - General Adult General Chief complaint: Wound/Laceration Stated complaint: post op complication Time Seen by Provider: 04/12/23 14:54 Source: patient, family and EMS Mode of arrival: EMS Limitations: no limitations History of Present Illness HPI narrative: Patient is status post ventral hernia repair 1 week ago, came from [facility] today because opening of the surgical wound yesterday. Patient denies any fever, chills, nausea, vomiting. Related Data Home Medications Medication Instructions Recorded Confirmed amlodipine 5 mg tablet 5 mg PO DAILY 10/13/19 04/02/23 bimatoprost 0.01 % eye drops 1 drop ophthalmic (eye) DAILY PRN 10/13/19 04/02/23 (Lumigan) Dry Eyes methylphenidate HCl 5 mg tablet 10 mg PO BID 10/13/19 04/02/23 pantoprazole 40 mg tablet,delayed 40 mg PO DAILY 10/14/19 04/02/23 release gabapentin 800 mg tablet 800 mg PO TID 02/07/23 04/02/23 metoprolol tartrate 25 mg tablet 12.5 mg PO QID 02/07/23 04/08/23 ondansetron HCl 4 mg tablet 4 mg PO QID PRN Nausea And Vomiting 02/07/23 04/02/23 paroxetine HCl 20 mg tablet 20 mg PO DAILY 02/07/23 04/02/23 prednisone 10 mg tablet 10 mg PO DAILY 02/07/23 04/02/23 tizanidine 2 mg tablet 2 mg PO QID PRN muscle spasms 02/07/23 04/02/23 zolpidem 5 mg tablet 5 mg PO HS 04/02/23 04/02/23 Allergies Allergy/AdvReac Type Severity Reaction Status Date / Time VICKI Inhibitors Allergy Unknown unk Verified 04/04/23 13:07 Review of Systems Review of Systems: All systems reviewed & are unremarkable except as noted in HPI and below PMFSH Past Medical History Medical History Anticoagulant long-term use Cervical spine fracture (07/2022) C1, C2, C7 fractures. Chronic atrial fibrillation Chronic deep vein thrombosis (DVT) of both lower extremities Chronic neck pain Chronic pain syndrome Chronic pulmonary embolism Depression Essential hypertension Glaucoma Hypothyroidism Multiple myeloma Overactive bladder Pulmonary hypertension Small bowel obstruction Surgical History Surgical History History of cervical spinal surgery Surgical stabilization of C1, C2, and C7 following fracture sustained in a fall. History of foot surgery Family History Family History Sibling Family history of diabetes mellitus in first degree relative Cancer Mother Hypertension Father Family history of coronary artery disease Cerebrovascular accident Family history of rheumatoid arthritis Social History Social History Social History: Surrogate medical decision maker: Allielida Moody, spouse. Code status: Full code. Smoking status: Never smoker Second hand tobacco smoke exposure: No Alcohol intake: former Drinks per week: 2 Alcohol use details: social Substance use: never Substance use type: other Other substance usage details: OTC sleeping pill Last use: unknown Lack of Transportation: No Lack of Food: Never True Current Housing: I Have Housing Concerned About Future Housing: No Difficulty Paying Gas/Electric Bills: No Difficulty Paying for Meds: No Currently Unemployed: No Education: High School Diploma/GED Difficulty w/ Childcare or Family Care: No Living arrangements: with family Occupation/Education: retired Spiritual care concerns: No Exam Narrative: General appearance: Well-developed, well-nourished Skin: Normal color Head: Normocephalic, nontraumatic Eyes: Clear conjunctiva ENT: Oropharynx normal, ears normal, nose normal Neck: Supple, nontender Chest and respiratory: Airway patent, no respiratory distress, no accessory muscle use Heart: Regular rate/rhythm Abdomen: Soft, nontender, no organomegaly, quiet bowel sounds, no good unilateral lower abdominal surgical wound, wound dehiscence between stable 1 and 2 abo
[2023-04-12 16:50] LABS: Basophils Percent Auto 0.2 % (0.2-1.2); Eosinophils Percent Auto 0.1 % (0-4.4); Hematocrit 27.8 % (37.0-47.0); Hemoglobin 8.8 g/dL (12.0-15.0); Immature Granulocyte Absolute 0.08 K/mm3 (0.00-0.031); Immature Granulocyte Percent A 0.7 % (0-0.5); Lymphocytes Absolute Auto 0.82 K/mm3 (0.9-3.2); Lymphocytes Percent Auto 7.5 % (18.3-44.2); Mean Corpuscular HGB Conc 31.7 g/dl (32-36); Mean Corpuscular Hemoglobin 32.1 pg (26-34); Mean Corpuscular Volume 101.5 fl (80-100); Mean Platelet Volume 9.9 fl (7.4-10.4); Monocytes Absolute Auto 0.1 K/mm3 (0.1-0.6); Monocytes Percent Auto 1.1 % (2.6-8.5); Neutrophils Absolute Auto 9.9 K/mm3 (1.3-6.7); Neutrophils Percent Auto 90.4 % (45.5-73.1); Platelet Count Result 201 k/mm3 (150-375); Red Blood Count 2.74 M/mm3 (4.2-5.4); Red Cell Distribution Width 17.8 % (11.5-14.5)
[2023-04-12 16:58] LABS: Alanine Aminotransferase 39 U/L (6-35); Albumin Level 2.7 g/dL (3.5-5.1); Alkaline Phosphatase 70 U/L (38-126); Anion Gap 4 mmol/L (8-16); Aspartate Amino Transferase 34 U/L (14-36); Bilirubin,Total 0.4 mg/dL (0.2-1.3); Blood Urea Nitrogen 15 mg/dL (7-17); Calcium 7.6 mg/dL (8.4-10.2); Carbon Dioxide 25 mmol/L (22-30); Chloride 104 mmol/L (98-107); Estimated Glomerular Filt Rate > 60; Glucose 116 mg/dL (65-110); Lipase 145 U/L (23-300); Potassium 4.2 mmol/L (3.4-5.0); Sodium 133 mmol/L (137-145)
[2023-04-12] MEDS: SODIUM CHLORIDE 0.9% IV 1,000 ML 999 ML IV CONT (17:05)
== END 2023-04-12 18:55 ==
PROVIDERS: Emergency Provider Emergency Medicine; PCP Family Medicine
DX: T81.31XA Disruption of external operation (surgical) wound, not elsewhere classified, initial encounter (principal); C90.00 Multiple myeloma not having achieved remission; I48.20 Chronic atrial fibrillation, unspecified; I10 Essential (primary) hypertension; I27.20 Pulmonary hypertension, unspecified; H40.9 Unspecified glaucoma; E03.9 Hypothyroidism, unspecified; N32.81 Overactive bladder; G89.4 Chronic pain syndrome; Z86.718 Personal history of other venous thrombosis and embolism; Z86.711 Personal history of pulmonary embolism; Z79.01 Long term (current) use of anticoagulants; K43.9 Ventral hernia without obstruction or gangrene; Y83.8 Other surgical procedures as the cause of abnormal reaction of the patient, or of later complication, without mention of misadventure at the time of the procedure
CPT/HCPCS: 36415; 74177; 80053; 83690; 85025; 96360; 99284; J7030; Q9967

== ENCOUNTER 2023-04-16 12:02 | Inpatient (IN) | payer MEDICARE, OTHER, SELFPAY ==
[2023-04-16] VITALS (7 sets, daily range): BP systolic 101–108; BP diastolic 53–82; PULSE 78–86; RESP 10–19; TEMP 35.8–36.9; O2SAT 94–100; BMI 20.2
--- NOTE | ~2023-04-16 | US_ITS ---
EXAMINATION: US venous doppler [facility] DATE: 04/18/2023 22:50 INDICATION: edema . TECHNIQUE: Grayscale images without and with compression and Doppler images of the bilateral lower ex tremity veins were obtained. COMPARISON: 02/07/2023 FINDINGS: The right common femoral vein, profunda (deep) femoral vein, femoral vein, popliteal vein, peroneal v ein, posterior tibial veins, gastrocnemius vein, and greater saphenous vein are patent. Lower extremi ty edema. Obscuration of a portion of the left common femoral vein by bandage material. The visualized portion of the left common femoral vein, profunda (deep) femoral vein, femoral vein, popliteal vein, peronea l vein, posterior tibial veins, gastrocnemius vein, and greater saphenous vein are patent. Lower extr emity edema. IMPRESSION: Patent bilateral lower extremity veins. No evidence of deep venous thrombosis. Reviewed, dictated and finalized at location K.
--- NOTE | ~2023-04-16 | XR_ITS ---
EXAMINATION: XR chest 1V portable INDICATION: Altered mental status TECHNIQUE: Portable AP chest at 2040 hours COMPARISON: 04/08/2023 FINDINGS: Cardiomegaly is noted. There are airspace opacities of the left mid and lower lung zones. N o pleural effusion or pneumothorax. There are partially imaged surgical changes at the cervicothoraci c junction. IMPRESSION: 1. Left basilar airspace opacity, consistent with atelectasis versus pneumonia. 2. Cardiomegaly. Reviewed, dictated and finalized at location F.
--- NOTE | ~2023-04-16 | CT_ITS ---
EXAMINATION: CT brain wo con INDICATION: Confusion COMPARISON: 04/02/2023 TECHNIQUE: Standard unenhanced head CT. The dose-length product (DLP) was 529.67 mGy-cm. The mA was a djusted according to patient size. Iterative reconstruction technique was employed. FINDINGS: There is no acute intraparenchymal hemorrhage. No evidence of mass lesion. No evidence of a cute infarction. There is mild periventricular and subcortical hypodensity probably related to small vessel ischemic disease. There is mild prominence of the sulci and ventricles related to cerebral atr ophy. Intracranial calcified cerebral atherosclerosis is noted. There are no extra-axial collections. There is no mass effect or midline shift. Changes in the globes are likely from ocular lens surgery. Chronic right sphenoid sinusitis is noted. IMPRESSION: 1. No acute intracranial abnormality. 2. Age related findings. Reviewed, dictated and finalized at location F.
--- NOTE | 2023-04-16 12:58 | WPDANESEPPF ---
Anes - Initial Pre Proc Eval Procedure: Operation Date: 04/16/23 16:30 Proposed Procedures p Wound Exploration, Washout and Evisceration - Svetlana Barba MD Date/Time: 04/16/23 12:58 Surgeon: Svetlana Barba MD Pre Op Diagnosis: Post op Complication Patient Data Age: 87 Gender: F Height: Weight: Allergies Allergy/AdvReac Type Severity Reaction Status Date / Time VICKI Inhibitors Allergy Unknown unk Verified 04/16/23 11:29 Home Medications Medication Instructions Recorded Confirmed Type amlodipine 5 mg tablet 5 mg PO DAILY 10/13/19 04/02/23 History methylphenidate HCl 5 mg tablet 10 mg PO BID 10/13/19 04/02/23 History pantoprazole 40 mg tablet,delayed 40 mg PO DAILY 10/14/19 04/02/23 History release levothyroxine 75 mcg tablet 75 mcg PO DAILY #90 tabs 01/11/23 04/02/23 Rx gabapentin 800 mg tablet 800 mg PO TID 02/07/23 04/02/23 History metoprolol tartrate 25 mg tablet 12.5 mg PO QID 02/07/23 04/08/23 History ondansetron HCl 4 mg tablet 4 mg PO Q6H PRN Nausea And Vomiting 02/07/23 04/02/23 History prednisone 10 mg tablet 10 mg PO DAILY 02/07/23 04/02/23 History tizanidine 2 mg tablet 2 mg PO QID PRN muscle spasms 02/07/23 04/02/23 History solifenacin 5 mg tablet (Vesicare) 5 mg PO DAILY #30 tabs 02/27/23 04/02/23 Rx zolpidem 5 mg tablet 5 mg PO HS 04/02/23 04/02/23 History apixaban 2.5 mg tablet (Eliquis) 2.5 mg PO Q12HR #60 tabs 04/09/23 Rx levofloxacin 750 mg tablet 750 mg PO Q48H #5 tabs 04/09/23 Rx acetaminophen 325 mg capsule 650 mg PO Q6H PRN Cough 04/16/23 04/16/23 History (Tylenol) benzonatate 100 mg capsule 100 mg PO TID PRN Cough 04/16/23 04/16/23 History Patient hx anesthesia problems: none Family hx anesthesia problems: none Results Review: All pre-operative results and documents have been reviewed as part of the pre-operative evaluation. [facility] Past Medical History Medical History Anticoagulant long-term use Cervical spine fracture (07/2022) C1, C2, C7 fractures. Chronic atrial fibrillation Chronic deep vein thrombosis (DVT) of both lower extremities Chronic neck pain Chronic pain syndrome Chronic pulmonary embolism Depression Essential hypertension Glaucoma Hypothyroidism Multiple myeloma Overactive bladder Pulmonary hypertension Small bowel obstruction Surgical History Surgical History History of cervical spinal surgery Surgical stabilization of C1, C2, and C7 following fracture sustained in a fall. History of foot surgery History of ventral hernia repair 04/04/2023 - robotic assisted reduction of strangulated left lower quadrant abdominal ventral hernia with noted perforation, conversion to open small-bowel resection, washout, primary closure of left lower quadrant ventral hernia Family History Family History Sibling Family history of diabetes mellitus in first degree relative Cancer Mother Hypertension Father Family history of coronary artery disease Cerebrovascular accident Family history of rheumatoid arthritis Social History Social History Social History: Surrogate medical decision maker: Allielida Moody, spouse. Code status: Full code. Smoking status: Never smoker Second hand tobacco smoke exposure: No Alcohol intake: former Drinks per week: 2 Alcohol use details: social Substance use: never Substance use type: other Other substance usage details: OTC sleeping pill Last use: unknown Lack of Transportation: No Lack of Food: Never True Current Housing: I Have Housing Concerned About Future Housing: No Difficulty Paying Gas/Electric Bills: No Difficulty Paying for Meds: No Currently Unemployed: No Education: High School Diploma/GED Difficulty w/ Childcare or Family Care: No Living arrangements: w
[2023-04-16] MEDS: LACTATED RINGERS 1,000 ML 30 ML IV CONT (13:40)
--- NOTE | 2023-04-16 13:52 | WPDHPUPDATE1 ---
History and Physical Update Update Date/Time: 04/16/23 13:52 History and Physical has been reviewed, including an updated exam of the patient. There are NO changes in the patient's condition. Risks, benefits, and alternatives have been discussed and questions answered. Patient agrees to proceed with procedure.
[2023-04-16] MEDS: ceFAZolin 2 GM/D5W 50 ML 2 GM/50 ML BAG IVPB (16:45)
--- NOTE | 2023-04-16 18:09 | P.OP_ITS ---
Procedure Note - Detailed Date of Procedure 04/16/23 Pre-op Diagnosis fascial dehiscence, small-bowel evisceration Post-op Diagnosis Same Procedure Performed exploratory laparotomy, extensive lysis of adhesions, small-bowel resection in cluding resection of previous anastomosis, abdominal washout, primary closure fascial dehiscence Surgeon Svetlana Barba MD Anesthesia General Indications 87-year-old female status post exploratory laparotomy, small bowel resection on 04/04 for strangulated ventral hernia presenting with fascial dehiscence, small- bowel evisceration. Findings Fascial dehiscence with small bowel loop that was dilated, ischemic Description of Procedure The patient was taken to the operating room and placed in the supine position. After adequate induction of general anesthesia, the patient was prepped and draped in the normal sterile fashion. A time-out was then done to verify the patient's identity, as well as the procedure being performed. I began by removing the previously placed halina. Upon entering the subcutaneous tissue, a loop of dilated ischemic small intestine was noted. Upon further dissection, there was noted to be a small fascial defect allowing this loop of small intestine to eviscerate into the wound. The fascial stitch was largely intact and I went ahead and removed the stitch. This allowed us to gain access into the abdomen. Once entering the abdomen, there was noted to be a large amount of adhesion to the anterior abdominal wall. These were taken down carefully using the Metzenbaum scissors. There was also noted to be interloop adhesions and t hese were also taken down. Upon manipulating the bowel, the area that had been previously eviscerated developed a small perforation. Given these findings, decision was made to proceed with small bowel resection. The previous anastomosis was noted to be intact and patent, however given the proximity to the area that had herniated the decision was made to resect the previous anastomosis as well. The small-bowel resection was then done to include the previous anastomosis proximally and distally to the area of perforation and evisceration. This will be sent to pathology for further review. I then proceeded to perform a [id number] functional end-to-end anastomosis between the 2 small bowel loops. This was done with the 55 SHAMEKA stapler followed by a Tx 60 stapler. I then closed the mesenteric defect with a running 3-0 silk suture. I did imbricate the staple line using interrupted 3-0 silk sutures. The anastomosis was noted to tension-free and widely patent. I then copiously irrig ated the abdomen. No other pathology was noted. I then freshened the fascial edges. I then closed the fascia using 0 looped PDS suture x2. The subcutaneous tissue was closed with 3-0 Vicryl suture. Skin halina were used to reapproximate the skin. The patient tolerated the procedure well and was extubated postoperatively. She will be sent to the recovery room in stable condition. Estimated Blood Loss 25 Pathology Yes Complications No immediate complications Condition Stable Disposition PACU [facility] Billing Surgery - Charge Forward: Surgery Billing
[2023-04-16] MEDS: fentaNYL CITRATE INJ (*CRX) 100 MCG/2 ML VIAL 25 MCG IV PUSH ×3 (18:30→19:01)
[2023-04-16] MEDS: MORPHINE SULFATE (*CRX) 4 MG/ML INJ IV PUSH (20:10)
[2023-04-16] MEDS: LACTATED RINGERS 1,000 ML 100 ML IV CONT (20:18)
[2023-04-16] MEDS: FAMOTIDINE 20 MG/2 ML VIAL IV PUSH (20:21)
--- NOTE | 2023-04-16 21:01 | ADMGEN ---
This patient, Ulises Moody, was admitted to [facility] Surg Room 317-01. Patient/family oriented to hospital policies and general routines including ID bracelet, bed and alarms, visiting hours, pain management, procedures, bathroom and other care routines, personal items, smoking policy, room service/diet, and visiting hours. Information on how to activate the Rapid Response Team has been discussed. Patient/Family are encouraged to report perceived risks to care and to ask questions if they do not understand what they are told or what they should do.
[2023-04-17 01:06] VITALS: BP 95/71; PULSE 97; RESP 18; TEMP 36.6; O2SAT 96
[2023-04-17] MEDS: ceFAZolin 2 GM/D5W 50 ML 2 GM/50 ML BAG IVPB ×2 (03:00→11:17)
[2023-04-17 04:00] VITALS: BP 112/58; PULSE 85; RESP 16; TEMP 35.8; O2SAT 97
[2023-04-17] MEDS: LACTATED RINGERS 1,000 ML 100 ML IV CONT (06:23)
[2023-04-17 06:54] LABS: Basophils Percent Auto 0.3 % (0.2-1.2); Hematocrit 29.4 % (37.0-47.0); Hemoglobin 9.3 g/dL (12.0-15.0); Immature Granulocyte Absolute 0.04 K/mm3 (0.00-0.031); Immature Granulocyte Percent A 0.5 % (0-0.5); Lymphocytes Absolute Auto 1.14 K/mm3 (0.9-3.2); Lymphocytes Percent Auto 14.6 % (18.3-44.2); Mean Corpuscular HGB Conc 31.6 g/dl (32-36); Mean Corpuscular Hemoglobin 32.6 pg (26-34); Mean Corpuscular Volume 103.2 fl (80-100); Mean Platelet Volume 9.7 fl (7.4-10.4); Monocytes Absolute Auto 0.2 K/mm3 (0.1-0.6); Monocytes Percent Auto 2.4 % (2.6-8.5); Neutrophils Absolute Auto 6.4 K/mm3 (1.3-6.7); Neutrophils Percent Auto 82.2 % (45.5-73.1); Platelet Count Result 199 k/mm3 (150-375); Red Blood Count 2.85 M/mm3 (4.2-5.4); Red Cell Distribution Width 18.2 % (11.5-14.5); White Blood Count 7.8 K/mm3 (4.5-10.0)
[2023-04-17 07:09] LABS: Anion Gap 1 mmol/L (8-16); Blood Urea Nitrogen 33 mg/dL (7-17); Calcium 7.5 mg/dL (8.4-10.2); Carbon Dioxide 34 mmol/L (22-30); Chloride 95 mmol/L (98-107); Estimated CRCL calculation 33 ml/min; Estimated Glomerular Filt Rate 60; Glucose 114 mg/dL (65-110); Potassium 4.1 mmol/L (3.4-5.0); Sodium 130 mmol/L (137-145)
[2023-04-17 08:00] VITALS: BP 100/42; PULSE 79; RESP 16; TEMP 35.6; O2SAT 100
[2023-04-17] MEDS: ENOXAPARIN 40 MG/0.4 ML SYRINGE SUB-Q (08:56)
[2023-04-17] MEDS: FAMOTIDINE 20 MG/2 ML VIAL IV PUSH ×2 (08:56→20:21)
--- NOTE | 2023-04-17 09:02 | PM.PNGS ---
Progress Note: A&P Assessment and Plan (1) Evisceration of bowel: Status: Acute Assessment and Plan: doing well, cont routine postop care, clears, OOB/IS, PT/OT Subjective Subjective Date/Time Seen: 04/17/23 09:02 Interval history: feels ok, some incisional soreness Review of Systems Review of Systems: All systems reviewed & are unremarkable except as noted in HPI and below Exam Const: General: cooperative, comfortable and no acute distress Resp: Auscultation: clear to auscultation bilaterally Cardio: Rate: regular rate Rhythm: regular rhythm GI: Inspection: normal to inspection, distended and incision GI Palp: Yes abdominal tenderness, Yes Soft to palpation, Yes Tenderness to palpation present (GI), No Guarding due to palpation present (GI) and No Rigid due to palpation Other: incision - C/D/I Objective Data Vital Signs Vital Signs: Vital Signs - 24 hr 04/16/23 18:13 04/16/23 18:25 04/16/23 18:40 Temperature 36.9 C Pulse Rate 78 83 86 Respiratory Rate 17 19 14 Blood Pressure 108/68 108/68 104/82 Pulse Oximetry 100 96 96 Oxygen Delivery Simple Face Mask Simple Face Mask Simple Face Mask Oxygen Flow Rate 6 6 6 04/16/23 18:55 04/16/23 19:10 04/16/23 20:06 Temperature 35.8 C L Pulse Rate 85 84 85 Respiratory Rate 12 10 L 18 Blood Pressure 101/59 L 102/53 L 103/60 Pulse Oximetry 100 100 100 Oxygen Delivery Room Air Room Air Oxygen Flow Rate 04/16/23 21:06 04/17/23 01:06 04/17/23 04:00 Temperature 36.1 C L 36.6 C 35.8 C L Pulse Rate 84 97 85 Respiratory Rate 18 18 16 Blood Pressure 102/81 95/71 L 112/58 L Pulse Oximetry 94 96 97 Oxygen Delivery Oxygen Flow Rate 04/17/23 08:00 Temperature 35.6 C L Pulse Rate 79 Respiratory Rate 16 Blood Pressure 100/42 L Pulse Oximetry 100 Oxygen Delivery Oxygen Flow Rate Intake/Output Intake/Output: Intake & Output 04/14/23 04/15/23 04/16/23 04/17/23 23:59 23:59 23:59 23:59 Intake Total 100 1999 Balance 100 1999 Meds/Results Medications: Active Medications Generic Name Dose Route Start Last Admin Trade Name Freq PRN Reason Stop Dose Admin Enoxaparin Sodium 40 mg 04/17/23 09:00 04/17/23 08:56 Enoxaparin 40 Mg/0.4 Ml Syringe SUB-Q 40 mg DAILY SKYLER Administration Famotidine 20 mg 04/16/23 21:00 04/17/23 08:56 Famotidine 20 Mg/2 Ml Vial IV PUSH 20 mg Q12HR SKYLER Administration Cefazolin Sodium 2 gm in 50 mls @ 100 mls/hr 04/17/23 03:00 04/17/23 03:00 Ancef 2 Gm/D5w 50 Ml IVPB 04/17/23 11:29 100 mls/hr Q8H SKYLER Administration Lactated Ringer's 1,000 mls @ 100 mls/hr 04/16/23 19:21 04/17/23 06:23 Lr - Lactated Ringers Iv IV CONT 100 mls/hr .Q10H SKYLER Administration Latanoprost 1 drop 04/17/23 21:00 Latanoprost 0.005% Op Soln 2.5 Ml Btl EACH EYE HS SKYLER Melatonin 5 mg 04/16/23 21:21 04/16/23 21:40 Melatonin 5 Mg Tablet PO Not Given HS SKYLER Morphine Sulfate 2 mg 04/16/23 19:21 Morphine Sulfate (*Crx) 2 Mg/Ml Inj IV PUSH Q2H PRN Pain Rated 4-6 Morphine Sulfate 4 mg 04/16/23 19:21 04/16/23 20:10 Morphine Sulfate (*Crx) 4 Mg/Ml Inj IV PUSH 2 mg Q2H PRN Administration Pain Rated 7-10 Naloxone HCl 0.1 mg 04/16/23 19:21 Naloxone Hcl 0.4 Mg/Ml Vial IV PUSH Q2M PRN Opiate Reversal Ondansetron HCl 4 mg 04/16/23 19:21 Ondansetron Inj 4 Mg/2 Ml Vial IV PUSH Q4H PRN Nausea And Vomiting Saliva Substitute 15 ml 04/16/23 21:27 Saliva Substitute Combo Rinse 237 Ml Bottle PO TID PRN Dry Mouth Labs Labs: Laboratory Results - last 24 hr 04/17/23 06:23 WBC 7.8 RBC 2.85 L Hgb 9.3 L Hct 29.4 L MCV 103.2 H MCH 32.6 MCHC 31.6 L RDW 18.2 H Plt Count 199 MPV 9.7 Immature Gran % (Auto) 0.5 Neut % (Auto) 82.2 H Lymph % (Auto) 14.6 L [place] % (Auto) 2.4 L Eos % (Auto) 0.0 Baso % (Auto) 0.3 Lymph # (Auto) 1.14 [place] # (Auto) 0.2 Eo
[2023-04-17] MEDS: MORPHINE SULFATE (*CRX) 4 MG/ML INJ IV PUSH ×2 (09:07→15:18)
--- NOTE | 2023-04-17 10:56 | WPDANESPN ---
Anes - Prog Note Post-Op Date/Time: 04/17/23 10:56 Vital Signs: Last Vital Signs Temp 35.6 C L 04/17/23 08:00 Pulse 79 04/17/23 08:00 Resp 16 04/17/23 08:00 BP 100/42 L 04/17/23 08:00 Pulse Ox 100 04/17/23 08:00 O2 Del Method Room Air 04/16/23 19:10 O2 Flow Rate 6 04/16/23 18:40 Pain Score (VAS): 0 I/O: Intake & Output 04/16/23 04/17/23 04/17/23 23:59 07:59 15:59 Intake Total 100 1999 240 Balance 100 1999 240 Laboratory Tests 04/17/23 06:23 04/17/23 06:23 04/17/23 06:23 WBC 7.8 RBC 2.85 L Hgb 9.3 L Hct 29.4 L MCV 103.2 H MCH 32.6 MCHC 31.6 L RDW 18.2 H Plt Count 199 MPV 9.7 Immature Gran % (Auto) 0.5 Neut % (Auto) 82.2 H Lymph % (Auto) 14.6 L [place] % (Auto) 2.4 L Eos % (Auto) 0.0 Baso % (Auto) 0.3 Lymph # (Auto) 1.14 [place] # (Auto) 0.2 Eos # (Auto) 0.0 Baso # (Auto) 0.0 Abs Immat Gran (auto) 0.04 H Absolute Neuts (auto) 6.4 Absolute Nucleated RBC 0.0 Nucleated RBC % 0.0 Sodium 130 L Potassium 4.1 Chloride 95 L Carbon Dioxide 34 H Anion Gap 1 L BUN 33 H D Creatinine 0.90 Estim Creat Clear Calc 33 Estimated GFR 60 Glucose 114 H Calcium 7.5 L Patient Feedback: Patient satisfied with anesthetic care.
--- NOTE | 2023-04-17 11:00 | PM.IMPN ---
Progress Note: A&P Assessment and Plan (1) Evisceration of bowel: Status: Acute Assessment and Plan: doing well, cont routine postop care, clears, OOB/IS, PT/OT Antibiotics per surgery (2) Edema: Code(s): R60.9 - Edema, unspecified Status: Acute Assessment and Plan: 1 dose of Lasix. Monitor blood pressure. Elevate legs (3) GERD (gastroesophageal reflux disease): Code(s): K21.9 - Gastro-esophageal reflux disease without esophagitis Status: Acute Assessment and Plan: Monitor, chronic (4) Atrial fibrillation: Code(s): I48.91 - Unspecified atrial fibrillation Status: Acute Assessment and Plan: Previous controlled, blood pressure soft. BP meds on hold, cardiac meds on hold No anticoagulation secondary to surgery (5) Hypertension: Code(s): I10 - Essential (primary) hypertension Status: Acute Assessment and Plan: Monitor (6) Chronic neck pain: Code(s): M54.2 - Cervicalgia; G89.29 - Other chronic pain Status: Acute Assessment and Plan: Chronic (7) Anxiety: Code(s): F41.9 - Anxiety disorder, unspecified Status: Acute Assessment and Plan: Home meds on hold secondary to recent bowel surgery Subjective Date/time seen: 04/17/23 11:00 Interval history: No complaints. Denies chest pain. Significant swelling in her lower extremities. Exam Const: General: cooperative, comfortable and no acute distress Resp: Auscultation: clear to auscultation bilaterally Cardio: Rate: regular rate Rhythm: regular rhythm GI: Inspection: normal to inspection, distended and incision Other: incision - C/D/I Objective Data Vital Signs Vital Signs: Vital Signs - 24 hr 04/16/23 18:13 04/16/23 18:25 04/16/23 18:40 Temperature 98.4 F Pulse Rate 78 83 86 Respiratory Rate 17 19 14 Blood Pressure 108/68 108/68 104/82 Pulse Oximetry 100 96 96 Oxygen Delivery Simple Face Mask Simple Face Mask Simple Face Mask Oxygen Flow Rate 6 6 6 04/16/23 18:55 04/16/23 19:10 04/16/23 20:06 Temperature 96.4 F L Pulse Rate 85 84 85 Respiratory Rate 12 10 L 18 Blood Pressure 101/59 L 102/53 L 103/60 Pulse Oximetry 100 100 100 Oxygen Delivery Room Air Room Air Oxygen Flow Rate 04/16/23 21:06 04/17/23 01:06 04/17/23 04:00 Temperature 97.0 F L 97.9 F 96.5 F L Pulse Rate 84 97 85 Respiratory Rate 18 18 16 Blood Pressure 102/81 95/71 L 112/58 L Pulse Oximetry 94 96 97 Oxygen Delivery Oxygen Flow Rate 04/17/23 08:00 Temperature 96.0 F L Pulse Rate 79 Respiratory Rate 16 Blood Pressure 100/42 L Pulse Oximetry 100 Oxygen Delivery Oxygen Flow Rate Intake/Output Intake/Output: Intake & Output 04/14/23 04/15/23 04/16/23 04/17/23 23:59 23:59 23:59 23:59 Intake Total 100 2240 Balance 100 2240 Meds/Results Medications: Active Medications Generic Name Dose Route Start Last Admin Trade Name Freq PRN Reason Stop Dose Admin Enoxaparin Sodium 40 mg 04/17/23 09:00 04/17/23 08:56 Enoxaparin 40 Mg/0.4 Ml Syringe SUB-Q 40 mg DAILY SKYLER Administration Famotidine 20 mg 04/16/23 21:00 04/17/23 08:56 Famotidine 20 Mg/2 Ml Vial IV PUSH 20 mg Q12HR SK[facility]ER Administration Cefazolin Sodium 2 gm in 50 mls @ 100 mls/hr 04/17/23 03:00 04/17/23 03:00 Ancef 2 Gm/D5w 50 Ml IVPB 04/17/23 11:29 100 mls/hr Q8H SKYLER Administration Lactated Ringer's 1,000 mls @ 100 mls/hr 04/16/23 19:21 04/17/23 06:23 Lr - Lactated Ringers Iv IV CONT 100 mls/hr .Q10H SKYLER Administration Latanoprost 1 drop 04/17/23 21:00 Latanoprost 0.005% Op Soln 2.5 Ml Btl EACH EYE HS SKYLER Melatonin 5 mg 04/16/23 21:21 04/16/23 21:40 Melatonin 5 Mg Tablet PO Not Given HS SKYLER Morphine Sulfate 2 mg 04/16/23 19:21 Morphine Sulfate (*Crx) 2 Mg/Ml Inj IV PUSH Q2H PRN Pain Rated 4-6 Morphine Sulfate 4 mg 04/16/23 19:21 04/17/23 09:07 M
[2023-04-17] MEDS: FUROSEMIDE INJ 40 MG/4 ML VIAL 20 MG IV PUSH (11:18)
[2023-04-17 12:00] VITALS: BP 109/53; PULSE 86; RESP 16; TEMP 35.6; O2SAT 96
[2023-04-17 15:58] VITALS: BP 100/62; PULSE 89; RESP 16; TEMP 35.8; O2SAT 96
--- NOTE | 2023-04-17 16:21 | PCPTNOTE ---
On 04/17/23, the student, SAYRA Dunlap, provided care and completed [facility] documentation on this patient. I have reviewed the student's documentation and agree with the findings.
[2023-04-17] MEDS: MORPHINE SULFATE (*CRX) 2 MG/ML INJ IV PUSH (20:20)
[2023-04-17] MEDS: MELATONIN 5 MG TABLET PO (20:21)
[2023-04-17] MEDS: LATANOPROST 0.005% OP SOLN 2.5 ML BTL 1 DROP EACH EYE (20:21)
[2023-04-17 21:06] VITALS: BP 92/56; PULSE 103; RESP 18; TEMP 36.8; O2SAT 95
[2023-04-18 07:03] LABS: Hematocrit 27.5 % (37.0-47.0); Hemoglobin 8.8 g/dL (12.0-15.0); Mean Corpuscular Hemoglobin 33.5 pg (26-34); Mean Corpuscular Volume 104.6 fl (80-100); Mean Platelet Volume 9.4 fl (7.4-10.4); Platelet Count Result 178 k/mm3 (150-375); Red Blood Count 2.63 M/mm3 (4.2-5.4); Red Cell Distribution Width 18.6 % (11.5-14.5); White Blood Count 5.3 K/mm3 (4.5-10.0)
[2023-04-18 07:19] LABS: Anion Gap 3 mmol/L (8-16); Blood Urea Nitrogen 29 mg/dL (7-17); Calcium 7.5 mg/dL (8.4-10.2); Carbon Dioxide 34 mmol/L (22-30); Chloride 94 mmol/L (98-107); Estimated CRCL calculation 27 ml/min; Estimated Glomerular Filt Rate 47; Glucose 88 mg/dL (65-110); Potassium 3.6 mmol/L (3.4-5.0); Sodium 131 mmol/L (137-145)
[2023-04-18 08:20] VITALS: BP 108/52; PULSE 91; RESP 20; TEMP 36.8; O2SAT 100
[2023-04-18] MEDS: ENOXAPARIN 40 MG/0.4 ML SYRINGE SUB-Q (09:14)
[2023-04-18] MEDS: MORPHINE SULFATE (*CRX) 2 MG/ML INJ IV PUSH (09:14)
[2023-04-18] MEDS: FAMOTIDINE 20 MG/2 ML VIAL IV PUSH ×2 (09:14→20:23)
--- NOTE | 2023-04-18 12:03 | PM.PNGS ---
Progress Note: A&P Assessment and Plan (1) Evisceration of bowel: Status: Acute Assessment and Plan: Await return of bowel function, advance to full liquids today Increase activity Possibly discharge to Rehab in next 1-2 days Subjective Subjective Date/Time Seen: 04/18/23 12:03 Interval history: No flatus or BM yet. tolerating clear liquids. Pain controlled. Exam GI: Inspection: non-distended and incision (intact with halina) GI Palp: Yes Soft to palpation and Yes Tenderness to palpation present (GI) (incisional) Auscultation: normal bowel sounds Objective Data Vital Signs Vital Signs: Vital Signs - 24 hr 04/17/23 14:32 04/17/23 15:58 04/17/23 21:06 Temperature 35.8 C L 36.8 C Pulse Rate 89 103 H Respiratory Rate 16 18 Blood Pressure 100/62 92/56 L Pulse Oximetry 96 95 Oxygen Delivery Room Air 04/18/23 08:20 Temperature 36.8 C Pulse Rate 91 Respiratory Rate 20 Blood Pressure 108/52 L Pulse Oximetry 100 Oxygen Delivery Intake/Output Intake/Output: Intake & Output 04/15/23 04/16/23 04/17/23 04/18/23 23:59 23:59 23:59 23:59 Intake Total 100 2580 476 Output Total 1300 500 Balance 100 1280 -24 Meds/Results Medications: Active Medications Generic Name Dose Route Start Last Admin Trade Name Freq PRN Reason Stop Dose Admin Enoxaparin Sodium 40 mg 04/17/23 09:00 04/18/23 09:14 Enoxaparin 40 Mg/0.4 Ml Syringe SUB-Q 40 mg DAILY SKYLER Administration Famotidine 20 mg 04/16/23 21:00 04/18/23 09:14 Famotidine 20 Mg/2 Ml Vial IV PUSH 20 mg Q12HR SKYLER Administration Latanoprost 1 drop 04/17/23 21:00 04/17/23 20:21 Latanoprost 0.005% Op Soln 2.5 Ml Btl EACH EYE 1 drop HS SKYLER Administration Melatonin 5 mg 04/16/23 21:21 04/17/23 20:21 Melatonin 5 Mg Tablet PO 5 mg HS SK[facility]ER Administration Morphine Sulfate 2 mg 04/16/23 19:21 04/18/23 09:14 Morphine Sulfate (*Crx) 2 Mg/Ml Inj IV PUSH 2 mg Q2H PRN Administration Pain Rated 4-6 Morphine Sulfate 4 mg 04/16/23 19:21 04/17/23 15:18 Morphine Sulfate (*Crx) 4 Mg/Ml Inj IV PUSH 4 mg Q2H PRN Administration Pain Rated 7-10 Naloxone HCl 0.1 mg 04/16/23 19:21 Naloxone Hcl 0.4 Mg/Ml Vial IV PUSH Q2M PRN Opiate Reversal Ondansetron HCl 4 mg 04/16/23 19:21 Ondansetron Inj 4 Mg/2 Ml Vial IV PUSH Q4H PRN Nausea And Vomiting Saliva Substitute 15 ml 04/16/23 21:27 Saliva Substitute Combo Rinse 237 Ml Bottle PO TID PRN Dry Mouth Zolpidem Tartrate 5 mg 04/17/23 20:47 Zolpidem Tartrate (*Crx) 5 Mg Tablet PO HS PRN Insomnia Labs Labs: Laboratory Results - last 24 hr 04/18/23 06:36 WBC 5.3 RBC 2.63 L Hgb 8.8 L Hct 27.5 L MCV 104.6 H MCH 33.5 MCHC 32.0 RDW 18.6 H Plt Count 178 MPV 9.4 Sodium 131 L Potassium 3.6 Chloride 94 L Carbon Dioxide 34 H Anion Gap 3 L BUN 29 H Creatinine 1.10 H Estim Creat Clear Calc 27 Estimated GFR 47 L Glucose 88 Calcium 7.5 L
--- NOTE | 2023-04-18 12:40 | PM.IMPN ---
Progress Note: A&P Assessment and Plan (1) Evisceration of bowel: Status: Acute Assessment and Plan: Patient underwent incarcerated ventral hernia repair on 04/04/2023. During therapy, she felt a ?pop? 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 She underwent exploratory laparotomy, extensive lysis of adhesions, small-bowel resection including resection of previous anastomosis, abdominal washout and primary closure of fascial dehiscence on 04/16. No return of bowel function yet but doing well overall. Continue routine postop care. Continue current diet. Continue PT/OT (2) Edema: Code(s): R60.9 - Edema, unspecified Status: Acute Assessment and Plan: Patient with bilateral lower extremity edema. This was new since admission. Better after stopping IV fluids and one dose lasix. Will hold on repeating Lasix since her Cr higher today. Check dopplers. (3) Atrial fibrillation: Code(s): I48.91 - Unspecified atrial fibrillation Status: Acute Assessment and Plan: EKG showing chronic AFib. Heart rate well controlled. Continue to hold some of her home medications and resume as her BP tolerates. Continue to hold Eliquis. (4) Hypertension: Code(s): I10 - Essential (primary) hypertension Status: Acute Assessment and Plan: Patient's blood pressure was reviewed on 04/18 Blood pressure remains soft at times Will continue to monitor (5) Anxiety: Code(s): F41.9 - Anxiety disorder, unspecified Status: Acute Assessment and Plan: Home meds on hold secondary to recent bowel surgery. Follow (6) GERD (gastroesophageal reflux disease): Code(s): K21.9 - Gastro-esophageal reflux disease without esophagitis Status: Acute Assessment and Plan: Stable. Continue to monitor. Continue Pepcid. (7) Chronic neck pain: Code(s): M54.2 - Cervicalgia; G89.29 - Other chronic pain Status: Acute Assessment and Plan: Chronic and stable. PT/OT Subjective Date/time seen: 04/18/23 12:40 Interval history: 87yo female with cAFib, HTN, MM and recent incarcerated ventral hernia repair on 04/04 here for evisceration of bowel. Assuming care. Chart reviewed. Pain is about 7/10 today. No chest pain or shortness of breath. No pleuritic chest pain. Her pedal edema is improved today. Exam Narrative: AF 98.3 108/52 91 20 100% ra Gen - NARD lying almost flat in bed Chest - bibasilar crackles, nml RR CV - irregularly irregular. Abd - Soft, dressing is clean and dry. browninsh staining on the inside of dressing but no strong odor. Ext - 2+ pedal edema. Negative Carlos's sign and no cords Psych - Nml mood and affect Skin - Warm and dry Objective Data Vital Signs Vital Signs: Vital Signs - 24 hr 04/17/23 14:32 04/17/23 15:58 04/17/23 21:06 Temperature 96.5 F L 98.2 F Pulse Rate 89 103 H Respiratory Rate 16 18 Blood Pressure 100/62 92/56 L Pulse Oximetry 96 95 Oxygen Delivery Room Air 04/18/23 08:20 Temperature 98.3 F Pulse Rate 91 Respiratory Rate 20 Blood Pressure 108/52 L Pulse Oximetry 100 Oxygen Delivery Intake/Output Intake/Output: Intake & Output 04/15/23 04/16/23 04/17/23 04/18/23 23:59 23:59 23:59 23:59 Intake Total 100 2580 476 Output Total 1300 500 Balance 100 1280 -24 Meds/Results Medications: Active Medications Generic Name Dose Route Start Last Admin Trade Name Robq PRN Reason Stop Dose Admin Enoxaparin Sodium 40 mg 04/17/23 09:00 04/18/23 09:14 Enoxaparin 40 Mg/0.4 Ml Syringe SUB-Q 40 mg DAILY SKYLER Administration Famotidine 20 mg 04/16/23 21:00 04/18/23 09:14 Famotidine 20 Mg/2 Ml Vial IV PUSH 20 mg Q12HR SKYLER Administration Latanoprost 1 drop 04/17/23 21:00 04/17/23 20:21 Latanoprost 0.005% Op Soln 2.5 Ml Btl EACH EYE 1 drop HS SKYLER Administration Melatonin 5 mg 04/16/23 21:21 04/17/23 20:21
[2023-04-18 13:47] VITALS: BP 99/64; PULSE 56; RESP 16; TEMP 36; O2SAT 92
[2023-04-18] MEDS: methylPHENIDATE HCL (*CRX) 10 MG TABLET PO (17:27)
[2023-04-18] MEDS: MELATONIN 5 MG TABLET PO (20:24)
[2023-04-18] MEDS: LATANOPROST 0.005% OP SOLN 2.5 ML BTL 1 DROP EACH EYE (20:24)
[2023-04-18] MEDS: HYDROcodone/acetaminophen (*CRX) 5-325 MG TABLET 1 TAB PO (20:26)
[2023-04-18 23:22] VITALS: BP 103/64; PULSE 120; RESP 14; TEMP 36.9; O2SAT 94
[2023-04-19] VITALS (8 sets, daily range): BP systolic 99–120; BP diastolic 45–83; PULSE 78–95; RESP 16–18; TEMP 36.3–37.3; O2SAT 94–100
[2023-04-19] MEDS: HYDROcodone/acetaminophen (*CRX) 5-325 MG TABLET 1 TAB PO (04:50)
[2023-04-19] MEDS: LEVOTHYROXINE SODIUM 75 MCG TABLET PO (05:56)
[2023-04-19 07:34] LABS: Hematocrit 26.9 % (37.0-47.0); Hemoglobin 8.5 g/dL (12.0-15.0); Mean Corpuscular HGB Conc 31.6 g/dl (32-36); Mean Corpuscular Hemoglobin 32.9 pg (26-34); Mean Corpuscular Volume 104.3 fl (80-100); Mean Platelet Volume 9.6 fl (7.4-10.4); Platelet Count Result 154 k/mm3 (150-375); Red Blood Count 2.58 M/mm3 (4.2-5.4); Red Cell Distribution Width 18.3 % (11.5-14.5)
[2023-04-19 07:46] LABS: Anion Gap 0 mmol/L (8-16); Blood Urea Nitrogen 21 mg/dL (7-17); Calcium 7.4 mg/dL (8.4-10.2); Carbon Dioxide 35 mmol/L (22-30); Chloride 98 mmol/L (98-107); Estimated CRCL calculation 33 ml/min; Estimated Glomerular Filt Rate 60; Glucose 91 mg/dL (65-110); Potassium 3.7 mmol/L (3.4-5.0); Sodium 133 mmol/L (137-145)
[2023-04-19] MEDS: GABAPENTIN 400 MG CAPSULE 800 MG PO ×3 (09:30→17:51)
[2023-04-19] MEDS: METOPROLOL TARTRATE 12.5 MG TABLET PO ×2 (09:31→12:20)
[2023-04-19] MEDS: ENOXAPARIN 40 MG/0.4 ML SYRINGE SUB-Q (09:31)
[2023-04-19] MEDS: polyethylene glycoL 3350 17 GM POWD.PACK PO (09:31)
[2023-04-19] MEDS: FAMOTIDINE 20 MG/2 ML VIAL IV PUSH ×2 (09:31→20:44)
[2023-04-19] MEDS: methylPHENIDATE HCL (*CRX) 10 MG TABLET PO ×2 (09:31→17:51)
--- NOTE | 2023-04-19 15:09 | PM.IMPN ---
Progress Note: A&P Assessment and Plan (1) Confusion: Code(s): R41.0 - Disorientation, unspecified Status: Acute Assessment and Plan: Call back to the room due to concerns for possible stroke. Exam was not consistent with stroke but she was confused. Stat CT the brain was ordered since she does have history of atrial fibrillation is not on anticoagulation at this time. CT the brain showed no acute findings. She was resumed on her methylphenidate. Chart review shows that she has taken this in the past recently and it is a home medicine. Her last narcotic dose was this morning around 5:00 a.m.. She has not received any Ambien or morphine recently. She was off her gabapentin which was resumed today. Will continue to monitor. (2) Evisceration of bowel: Status: Acute Assessment and Plan: Patient underwent incarcerated ventral hernia repair on 04/04/2023. During therapy, she felt a ?pop? 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 She underwent exploratory laparotomy, extensive lysis of adhesions, small-bowel resection including resection of previous anastomosis, abdominal washout and primary closure of fascial dehiscence on 04/16. No return of bowel function but passing flatus. Continue routine postop care. Continue PT/OT. Advance diet per General surgery instructions. (3) Edema: Code(s): R60.9 - Edema, unspecified Status: Acute Assessment and Plan: Patient with bilateral lower extremity edema. This was new since admission. Better after stopping IV fluids and one dose lasix. Lower extremity venous Dopplers was negative for DVT. Blood pressure still soft at times will hold on repeating the Lasix at this time. Add Esequiel avitia (4) Atrial fibrillation: Code(s): I48.91 - Unspecified atrial fibrillation Status: Acute Assessment and Plan: EKG showing chronic AFib. Heart rate well controlled. Home metoprolol was resumed. Monitor blood pressure closely. Place parameters on metoprolol. Resume Eliquis when okay with surgery. (5) Hypertension: Code(s): I10 - Essential (primary) hypertension Status: Acute Assessment and Plan: Patient's blood pressure was reviewed on 04/19 Blood pressure remains soft at times Will continue to monitor (6) Anxiety: Code(s): F41.9 - Anxiety disorder, unspecified Status: Acute Assessment and Plan: Home meds were on hold secondary to recent bowel surgery. We are slowly adding his back. Continue to follow. (7) GERD (gastroesophageal reflux disease): Code(s): K21.9 - Gastro-esophageal reflux disease without esophagitis Status: Acute Assessment and Plan: Stable. Continue to monitor. Continue Pepcid. (8) Chronic neck pain: Code(s): M54.2 - Cervicalgia; G89.29 - Other chronic pain Status: Acute Assessment and Plan: Chronic and stable. PT/OT Subjective Date/time seen: 04/19/23 15:09 Interval history: 87yo female with cAFib, HTN, MM and recent incarcerated ventral hernia repair on 04/04 here for evisceration of bowel. Patient slept well last night. Passing flatus but no BMs. No CP or SOB. Exam Narrative: AF 97.5 102/60 82 16 98% ra Gen - NARD lying semi-recumbent in bed Chest - mild bibasilar crackles, nml RR CV - irregularly irregular. Abd - Soft, +BS, incision clean, dry and intact. Ext - 2+ pedal edema Neuro - finger to nose intact. No focal weakness. no facial droop. AOx1 (location but not name and year). no pronator drift Psych - Nml mood and affect Skin - Warm and dry Objective Data Vital Signs Vital Signs: Vital Signs - 24 hr 04/18/23 23:22 04/19/23 06:15 04/19/23 09:31 Temperature 98.5 F Pulse Rate 120 H 78 Respiratory Rate 14 Blood Pressure 103/64 Pulse Oximetry 94 94 Oxygen Delivery Room Air 04/19/23 09:30 04/19/23 11:12 04/19/23 12:20 Temperature 97.4 F L Pul
--- NOTE | 2023-04-19 15:09 | PC.NURSE ---
Addendum entered by Analy Donovan RN 04/19/23 19:10: Pt has been confused off and on. Pt having trouble recalling birthday and A&O questions. Pt has been monitored for changes in status. Pt denies any needs for pain medication. Original Note: Pt is exhibiting some new confusion for me this shift. Pt blood pressure has gone down and provider was notified. Provider assessed pt and STAT head CT without contrast was ordered. Transport came and retrieved pt for testing. Will continue to monitor pt A&O status.
--- NOTE | 2023-04-19 15:10 | PM.PNGS ---
Progress Note: A&P Assessment and Plan (1) Evisceration of bowel: Status: Acute Assessment and Plan: Await return of bowel function, advance to low-fiber diet today Increase activity Possibly discharge to Rehab in next 1-2 days Subjective Subjective Date/Time Seen: 04/19/23 15:10 Interval history: Tolerating full liquids. Passing flatus, but no bowel movement. No bloating or nausea. Pain well controlled. Exam GI: Inspection: non-distended and incision (intact with halina) GI Palp: Yes Soft to palpation and Yes Tenderness to palpation present (GI) (incisional) Auscultation: normal bowel sounds Objective Data Vital Signs Vital Signs: Vital Signs - 24 hr 04/18/23 23:22 04/19/23 06:15 04/19/23 09:31 Temperature 36.9 C Pulse Rate 120 H 78 Respiratory Rate 14 Blood Pressure 103/64 Pulse Oximetry 94 94 Oxygen Delivery Room Air 04/19/23 09:30 04/19/23 11:12 04/19/23 12:20 Temperature 36.3 C L Pulse Rate 95 82 Respiratory Rate 17 Blood Pressure 120/83 Pulse Oximetry 94 Oxygen Delivery Room Air 04/19/23 14:16 Temperature 36.3 C L Pulse Rate 93 Respiratory Rate 18 Blood Pressure 99/52 L Pulse Oximetry 100 Oxygen Delivery Intake/Output Intake/Output: Intake & Output 04/16/23 04/17/23 04/18/23 04/19/23 23:59 23:59 23:59 23:59 Intake Total 100 2580 952 540 Output Total 1300 900 700 Balance 100 1280 52 -160 Meds/Results Medications: Active Medications Generic Name Dose Route Start Last Admin Trade Name Freq PRN Reason Stop Dose Admin Acetaminophen 650 mg 04/18/23 12:57 Acetaminophen 325 Mg Tablet PO Q6H PRN Mild Pain (1-3) or Fever Hydrocodone Bitart/Acetaminophen 1 tab 04/18/23 12:57 04/19/23 04:50 Hydrocodone/Acetaminophen (*Crx) 5-325 Mg Tablet PO 1 tab Q6H PRN Administration Pain Rated 4-6 Enoxaparin Sodium 40 mg 04/17/23 09:00 04/19/23 09:31 Enoxaparin 40 Mg/0.4 Ml Syringe SUB-Q 40 mg DAILY SKYLER Administration Famotidine 20 mg 04/16/23 21:00 08/03/23 09:31 Famotidine 20 Mg/2 Ml Vial IV PUSH 20 mg Q12HR SKYLER Administration Gabapentin 800 mg 04/19/23 09:00 04/19/23 12:20 Gabapentin 400 Mg Capsule PO 800 mg TID SKYLER Administration Latanoprost 1 drop 04/17/23 21:00 04/18/23 20:24 Latanoprost 0.005% Op Soln 2.5 Ml Btl EACH EYE 1 drop HS [facility] Administration Levothyroxine Sodium 75 mcg 04/19/23 06:30 04/19/23 05:56 Levothyroxine Sodium 75 Mcg Tablet PO 75 mcg DAILY@0630 SKYLER Administration Melatonin 5 mg 04/16/23 21:21 04/18/23 20:24 Melatonin 5 Mg Tablet PO 5 mg HS [facility] Administration Methylphenidate HCl 10 mg 04/18/23 17:00 04/19/23 09:31 Methylphenidate Hcl (*Crx) 10 Mg Tablet PO 10 mg BID SKYLER Administration Metoprolol Tartrate 12.5 mg 04/19/23 09:00 04/19/23 12:20 Metoprolol Tartrate 12.5 Mg Tablet PO 12.5 mg QID [facility] Administration Morphine Sulfate 2 mg 04/18/23 12:57 Morphine Sulfate (*Crx) 2 Mg/Ml Inj IV PUSH Q2H PRN Pain Rated 7-10 Naloxone HCl 0.1 mg 04/16/23 19:21 Naloxone Hcl 0.4 Mg/Ml Vial IV PUSH Q2M PRN Opiate Reversal Ondansetron HCl 4 mg 04/16/23 19:21 Ondansetron Inj 4 Mg/2 Ml Vial IV PUSH Q4H PRN Nausea And Vomiting Polyethylene Glycol 17 gm 04/19/23 09:20 04/19/23 09:31 Polyethylene Glycol 3350 17 Gm Powd.Pack PO 17 gm QAM SKYLER Administration Saliva Substitute 15 ml 04/16/23 21:27 Saliva Substitute Combo Rinse 237 Ml Bottle PO TID PRN Dry Mouth Zolpidem Tartrate 5 mg 04/17/23 20:47 Zolpidem Tartrate (*Crx) 5 Mg Tablet PO HS PRN Insomnia Radiology Results: ITS Impressions Venous Doppler Study 04/18/23 23:09 IMPRESSION: Patent bilateral lower extremity veins. No evidence of deep venous thrombosis. Labs Labs: Laboratory Results - last 24 hr 04/19/23 06:44 WBC 3.0 L RBC 2.58 L Hgb
--- NOTE | 2023-04-19 18:25 | PC.NURSE ---
[place] 5-325mg tablet found this AM after shift change by GIOVANNI Beckford. This medication was scanned 04/18/23 @ 6 and 04/19/23 @ 0450 by night RN. Medication possibly NOT taken by patient at one of these times?
[2023-04-19] MEDS: MELATONIN 5 MG TABLET PO (20:44)
[2023-04-19] MEDS: LATANOPROST 0.005% OP SOLN 2.5 ML BTL 1 DROP EACH EYE (20:44)
[2023-04-19 21:17] LABS: Basophils Percent Auto 0.5 % (0.2-1.2); Eosinophils Percent Auto 0.5 % (0-4.4); Hematocrit 27.7 % (37.0-47.0); Hemoglobin 8.9 g/dL (12.0-15.0); Immature Granulocyte Absolute 0.01 K/mm3 (0.00-0.031); Immature Granulocyte Percent A 0.3 % (0-0.5); Lymphocytes Absolute Auto 1.21 K/mm3 (0.9-3.2); Lymphocytes Percent Auto 31.8 % (18.3-44.2); Mean Corpuscular HGB Conc 32.1 g/dl (32-36); Mean Corpuscular Hemoglobin 33.2 pg (26-34); Mean Corpuscular Volume 103.4 fl (80-100); Mean Platelet Volume 9.3 fl (7.4-10.4); Monocytes Absolute Auto 0.2 K/mm3 (0.1-0.6); Monocytes Percent Auto 3.9 % (2.6-8.5); Neutrophils Absolute Auto 2.4 K/mm3 (1.3-6.7); Platelet Count Result 169 k/mm3 (150-375); Red Blood Count 2.68 M/mm3 (4.2-5.4); Red Cell Distribution Width 18.2 % (11.5-14.5); White Blood Count 3.8 K/mm3 (4.5-10.0)
[2023-04-19 21:27] LABS: Lactic Acid Reflex 1.8 mmol/L (0.7-2.0)
[2023-04-19 21:46] LABS: Appearance Urine Clear (Clear); Bilirubin Urine Negative (Negative); Blood Urine Negative (Negative); Color Urine Yellow (Yellow); Glucose Urine UA Negative (Negative); Ketones Urine Negative (Negative); Leukocyte Esterase Ur Negative LEU/UL (Negative); Nitrate Urine Negative (Negative); Protein Urine Negative (Negative); Specific Grav Ur 1.012 (1.001-1.035); pH Urine 7.5 (5.0-9.0)
[2023-04-19 22:15] LABS: Add Urine Microscopic? NO
[2023-04-19] MEDS: AZITHROMYCIN 500 MG/NS 250 ML 500 MG/250 ML BAG 250 MG IVPB (23:23)
[2023-04-20] MEDS: cefTRIAXone 2 GM/NS 100 ML 2 GM/100 ML BAG IVPB (01:34)
[2023-04-20] MEDS: LEVOTHYROXINE SODIUM 75 MCG TABLET PO (05:45)
[2023-04-20] MEDS: ACETAMINOPHEN 325 MG TABLET 650 MG PO (05:57)
--- NOTE | 2023-04-20 07:41 | P.PNCROSS_ITS ---
Event Note Event Note Event Note: On 04/19/23 I received call from patient's RN Fabiana who stated that patient was c onfused and altered with borderline low blood pressure. Patient was reportedly paranoid and more obtunded. RN was concerned for infection/sepsis. Saw prior WBC was depressed. Ordered CBC, Lactic acid, straight cath UA/UC, and CXR. WBC was still depressed at 3.8, no signs of UTI, normal lactic acid but CXR was read as atelectasis vs pneumonia. Ordered IV azithromycin and Rocephin.
[2023-04-20 08:30] VITALS: PULSE 68
[2023-04-20] MEDS: GABAPENTIN 400 MG CAPSULE 800 MG PO ×3 (08:30→17:08)
[2023-04-20] MEDS: METOPROLOL TARTRATE 12.5 MG TABLET PO ×3 (08:30→17:07)
[2023-04-20] MEDS: polyethylene glycoL 3350 17 GM POWD.PACK PO (08:30)
[2023-04-20] MEDS: ENOXAPARIN 40 MG/0.4 ML SYRINGE SUB-Q (08:31)
[2023-04-20] MEDS: FAMOTIDINE 20 MG/2 ML VIAL IV PUSH ×2 (08:31→21:15)
[2023-04-20 09:18] LABS: Basophils Percent Auto 0.5 % (0.2-1.2); Eosinophils Percent Auto 0.7 % (0-4.4); Hematocrit 28.9 % (37.0-47.0); Hemoglobin 9.1 g/dL (12.0-15.0); Immature Granulocyte Absolute 0.01 K/mm3 (0.00-0.031); Immature Granulocyte Percent A 0.2 % (0-0.5); Lymphocytes Absolute Auto 1.73 K/mm3 (0.9-3.2); Lymphocytes Percent Auto 39.6 % (18.3-44.2); Mean Corpuscular HGB Conc 31.5 g/dl (32-36); Mean Corpuscular Hemoglobin 32.4 pg (26-34); Mean Corpuscular Volume 102.8 fl (80-100); Mean Platelet Volume 9.2 fl (7.4-10.4); Monocytes Absolute Auto 0.1 K/mm3 (0.1-0.6); Neutrophils Absolute Auto 2.5 K/mm3 (1.3-6.7); Platelet Count Result 182 k/mm3 (150-375); Red Blood Count 2.81 M/mm3 (4.2-5.4); Red Cell Distribution Width 18.4 % (11.5-14.5); White Blood Count 4.4 K/mm3 (4.5-10.0)
[2023-04-20 09:39] LABS: Albumin Level 2.6 g/dL (3.5-5.1); Anion Gap 4 mmol/L (8-16); Blood Urea Nitrogen 14 mg/dL (7-17); Calcium 7.6 mg/dL (8.4-10.2); Carbon Dioxide 32 mmol/L (22-30); Chloride 99 mmol/L (98-107); Estimated CRCL calculation 33 ml/min; Estimated Glomerular Filt Rate 60; Glucose 115 mg/dL (65-110); Magnesium 1.9 mg/dL (1.6-2.3); Phosphorus 3.2 mg/dL (2.5-4.5); Potassium 3.6 mmol/L (3.4-5.0); Sodium 135 mmol/L (137-145)
[2023-04-20] MEDS: BISACODYL 10 MG SUPPOSITORY RECTAL (12:34)
[2023-04-20 14:00] VITALS: BP 103/64; PULSE 85; RESP 20; TEMP 36.4; O2SAT 99
--- NOTE | 2023-04-20 14:25 | PM.IMPN ---
Progress Note: A&P Assessment and Plan (1) Confusion: Code(s): R41.0 - Disorientation, unspecified Status: Acute Assessment and Plan: Patient more confused yesterday and exam was not consistent with stroke. Brain CT showing no acute findings. She was resumed on her methylphenidate and chart review shows that she has taken this in the past recently and it is a home medicine. Will stop Ritalin and monitor off this medication. CXR result noted but she elevated left hemidiaphragm and has persistent LLL consolidation; will stop abx. Will continue to follow (2) Evisceration of bowel: Status: Acute Assessment and Plan: Patient underwent incarcerated ventral hernia repair on 04/04/2023. During therapy, she felt a ?pop? 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 She underwent exploratory laparotomy, extensive lysis of adhesions, small-bowel resection including resection of previous anastomosis, abdominal washout and primary closure of fascial dehiscence on 04/16. No BMs but passing flatus. Continue routine postop care. Continue PT/OT. Diet advanced and she is toelrating it well. (3) Edema: Code(s): R60.9 - Edema, unspecified Status: Acute Assessment and Plan: Patient with bilateral lower extremity edema. This was new since admission. Better after stopping IV fluids and one dose lasix. Lower extremity venous Dopplers was negative for DVT. Blood pressure still soft at times so will hold on repeating the Lasix at this time. Continue Esequiel hose (4) Atrial fibrillation: Code(s): I48.91 - Unspecified atrial fibrillation Status: Acute Assessment and Plan: EKG showing chronic AFib. Home metoprolol was resumed. Heart rate well controlled. Monitor blood pressure closely. Resume Eliquis when okay with surgery. (5) Hypertension: Code(s): I10 - Essential (primary) hypertension Status: Acute Assessment and Plan: Patient's blood pressure was reviewed on 04/20 Blood pressure remains soft at times Will continue to monitor (6) Anxiety: Code(s): F41.9 - Anxiety disorder, unspecified Status: Acute Assessment and Plan: Home meds were on hold secondary to recent bowel surgery. We are slowly adding his back. Continue to follow. (7) GERD (gastroesophageal reflux disease): Code(s): K21.9 - Gastro-esophageal reflux disease without esophagitis Status: Acute Assessment and Plan: Stable. Continue to monitor. Continue Pepcid. (8) Chronic neck pain: Code(s): M54.2 - Cervicalgia; G89.29 - Other chronic pain Status: Acute Assessment and Plan: Chronic and stable. PT/OT Subjective Date/time seen: 04/20/23 14:25 Interval history: 87yo female with cAFib, HTN, MM and recent incarcerated ventral hernia repair on 04/04 here for evisceration of bowel. No cough. No n/v. No dysphagia. Eating well. Walking in the halls. Exam Narrative: AF 98.2 106/45 68 16 97% ra Gen - NARD lying semi-recumbent in bed Chest - few basilar rhonchi o/w clear. nml RR CV - irregularly irregular. Abd - Soft, +BS, incision clean, dry and intact. Ext - 1+ pedal edema with Esequiel hose in place Neuro - AOx2 (location, year but not month or colette) Psych - Nml mood and affect Skin - Warm and dry Objective Data Vital Signs Vital Signs: Vital Signs - 24 hr 04/19/23 17:52 04/19/23 17:52 04/19/23 20:12 Temperature 98.5 F 99.1 F Pulse Rate 80 Respiratory Rate Blood Pressure 111/47 L 100/58 L Pulse Oximetry 99 04/19/23 23:43 04/20/23 08:30 Temperature 98.2 F Pulse Rate 86 68 Respiratory Rate 16 Blood Pressure 106/45 L Pulse Oximetry 97 Intake/Output Intake/Output: Intake & Output 04/17/23 04/18/23 04/19/23 04/20/23 23:59 23:59 23:59 23:59 Intake Total 2580 952 1190 1030 Output Total 7107 792 6229 800 Balance 1280 52 -10 230 Meds/Results Medications:
--- NOTE | 2023-04-20 15:15 | PM.DS ---
DS: Admitting Diagnosis Discharge Date 04/20/2023 Admitting Diagnosis Evisceration of bowel DS: Discharge Diagnosis Discharge Diagnosis (1) Evisceration of bowel: Status: Acute (2) Atrial fibrillation: Qualifiers: Atrial fibrillation type: longstanding persistent Qualified Code(s): I48.11 - Longstanding persistent atrial fibrillation Code(s): I48.91 - Unspecified atrial fibrillation Status: Acute (3) GERD (gastroesophageal reflux disease): Qualifiers: Esophagitis presence: without esophagitis Qualified Code(s): K21.9 - Gastro-esophageal reflux disease without esophagitis Code(s): K21.9 - Gastro-esophageal reflux disease without esophagitis Status: Acute (4) Anxiety: Code(s): F41.9 - Anxiety disorder, unspecified Status: Acute DS: Summary Hospital Course Reason for hospitalization: Evisceration of bowel Hospital Course: This is an 87-year-old woman who presented with findings of a wound dehiscence and evisceration of bowel from recent surgery. She had originally undergone open small-bowel resection and repair of left lower quadrant strangulated hernia by Dr. Barba on 04/04/2023. She was then discharged from the hospital to acute rehab. She was performing physical therapy at rehab when she felt a pop and had some drainage from her incision. She was seen by Dr. Barba in the office shortly after this happened on 04/16/2023. She was found to have a wound dehiscence with evisceration of bowel and was then taken emergently for surgery on 04/16. She underwent small bowel resection and fascial closure of dehiscence. She was then admitted to the surgical floor postoperatively. She was started on clear liquids initially postop and then was advanced to full liquid diet on 04/18/2023. Hospitalist was consulted to help with medical management. She was advanced to a soft regular diet on 04/19/2023. She was having some increased confusion that afternoon and a CT of her head was performed. This showed no acute changes. Her confusion did seem to improve slightly. She was remaining hemodynamically stable and was given some laxatives to help with return of bowel function. Her bowels moved on 04/20/2023. She was tolerating a solid diet without any nausea or vomiting. She was then discharged back to acute rehab on 04/20/2023. Status at Discharge Functional status at discharge: uses cane/walker Overall status at discharge: patient is progressing back to baseline Time Spent with Patient Time attestation: Total time spent providing and/or coordinating discharge services: Time spent: Less than 30 minutes Exam Const: General: comfortable and no acute distress Resp: Effort & Inspection: normal respiratory effort Auscultation: clear to auscultation bilaterally Cardio: Rate: regular rate Rhythm: regular rhythm Heart sounds: S1 normal heart sound present and S2 normal heart sound present GI: Inspection: non-distended and incision (Intact with halina) GI Palp: Yes Soft to palpation, No Tenderness to palpation present (GI) and No Guarding due to palpation present (GI) Auscultation: normal bowel sounds DS: Data Data Completed and Pending Pending studies at discharge: Pending at discharge 04/16/23 17:23 Surgical [PTH] Routine Labs on day of discharge: Labs from last 24 hours 04/20/23 04/20/23 04/19/23 09:01 09:00 21:18 WBC 4.4 L RBC 2.81 L Hgb 9.1 L Hct 28.9 L MCV 102.8 H MCH 32.4 MCHC 31.5 L RDW 18.4 H Plt Count 182 MPV 9.2 Immature Gran % (Auto) 0.2 Neut % (Auto) 56.0 Lymph % (Auto) 39.6 [place] % (Auto) 3.0 Eos % (Auto) 0.7 Baso % (Auto) 0.5 Lymph # (Auto) 1.73 [place] # (Auto) 0.1 Eos # (Auto) 0.0 Baso # (Auto) 0.0 Abs Immat Gran (auto) 0.01 Absolute Neuts (auto) 2.5 Absolute Nucleated RBC 0.0 Nucleated RBC % 0.0 Sodium 135 L Potassium 3.6 Chloride 99 Carbon D
[2023-04-20 17:07] VITALS: PULSE 76
[2023-04-20] MEDS: HYDROcodone/acetaminophen (*CRX) 5-325 MG TABLET 1 TAB PO (21:14)
[2023-04-20] MEDS: MELATONIN 5 MG TABLET PO (21:15)
[2023-04-20] MEDS: LATANOPROST 0.005% OP SOLN 2.5 ML BTL 1 DROP EACH EYE (21:15)
[2023-04-20 22:26] VITALS: BP 112/51; PULSE 82; RESP 18; TEMP 37.2; O2SAT 98
[2023-04-21] MEDS: LEVOTHYROXINE SODIUM 75 MCG TABLET PO (06:02)
[2023-04-21 08:00] VITALS: BP 105/63; PULSE 75; RESP 16; TEMP 36.4; O2SAT 100
[2023-04-21] MEDS: GABAPENTIN 400 MG CAPSULE 800 MG PO ×3 (09:04→17:16)
[2023-04-21] MEDS: ENOXAPARIN 40 MG/0.4 ML SYRINGE SUB-Q (09:04)
[2023-04-21] MEDS: polyethylene glycoL 3350 17 GM POWD.PACK PO (09:04)
[2023-04-21 09:05] VITALS: PULSE 80
[2023-04-21] MEDS: METOPROLOL TARTRATE 12.5 MG TABLET PO ×3 (09:05→17:16)
[2023-04-21] MEDS: FAMOTIDINE 20 MG/2 ML VIAL IV PUSH ×2 (09:06→20:18)
[2023-04-21] MEDS: PIPERACILLIN/TAZ 2.25G/NS 50ML 2.25 GM/50 ML BAG IVPB ×2 (11:28→17:15)
[2023-04-21 12:31] VITALS: PULSE 83
--- NOTE | 2023-04-21 14:50 | PM.PNGS ---
Progress Note: A&P Assessment and Plan (1) Evisceration of bowel: Status: Acute Assessment and Plan: Will delay discharge until culture sensitivities return. Patient surgically doing well and tolerating diet. (2) Bacteremia: Code(s): R78.81 - Bacteremia Status: Acute Assessment and Plan: Blood culture from 04/19/2023 is coming back positive. Sensitivities are still pending. Zosyn and gentamicin started today. Source could be GI due to bowel perforation and need for bowel resection with both recent surgeries. Will hopefully be able to discharge on oral antibiotics once sensitivities are returned. Subjective Subjective Date/Time Seen: 04/21/23 14:50 Interval history: Patient was waiting on transportation for discharge to acute rehab. She has continued to do well postoperatively, but blood cultures from 04/19 are growing gram variable bacilli. She is still tolerating a soft diet. Bowels are moving. She denies fevers. Exam Const: General: comfortable and no acute distress Resp: Effort & Inspection: normal respiratory effort Auscultation: clear to auscultation bilaterally Cardio: Rate: regular rate Rhythm: regular rhythm Heart sounds: S1 normal heart sound present and S2 normal heart sound present GI: Inspection: non-distended and incision (Intact with halina) GI Palp: Yes Soft to palpation, No Tenderness to palpation present (GI) and No Guarding due to palpation present (GI) Auscultation: normal bowel sounds Objective Data Vital Signs Vital Signs: Vital Signs - 24 hr 04/20/23 17:07 04/20/23 22:26 04/20/23 20:00 Temperature 37.2 C Pulse Rate 76 82 Respiratory Rate 18 Blood Pressure 112/51 L Pulse Oximetry 98 Oxygen Delivery Room Air 04/21/23 09:05 04/21/23 08:00 04/21/23 12:31 Temperature 36.4 C Pulse Rate 80 75 83 Respiratory Rate 16 Blood Pressure 105/63 Pulse Oximetry 100 Oxygen Delivery Intake/Output Intake/Output: Intake & Output 04/18/23 04/19/23 04/20/23 04/21/23 23:59 23:59 23:59 23:59 Intake Total 952 1190 1270 370 Output Total 900 1200 800 Balance 52 -10 470 370 Meds/Results Medications: Active Medications Generic Name Dose Route Start Last Admin Trade Name Freq PRN Reason Stop Dose Admin Acetaminophen 650 mg 04/18/23 12:57 04/20/23 05:57 Acetaminophen 325 Mg Tablet PO 650 mg Q6H PRN Administration Mild Pain (1-3) or Fever Hydrocodone Bitart/Acetaminophen 1 tab 04/18/23 12:57 04/20/23 21:14 Hydrocodone/Acetaminophen (*Crx) 5-325 Mg Tablet PO 1 tab Q6H PRN Administration Pain Rated 4-6 Enoxaparin Sodium 40 mg 04/17/23 09:00 04/21/23 09:04 Enoxaparin 40 Mg/0.4 Ml Syringe SUB-Q 40 mg DAILY SKYLER Administration Famotidine 20 mg 04/16/23 21:00 04/21/23 09:06 Famotidine 20 Mg/2 Ml Vial IV PUSH 20 mg Q12HR SKYLER Administration Gabapentin 800 mg 04/19/23 09:00 04/21/23 12:31 Gabapentin 400 Mg Capsule PO 800 mg TID SKYLER Administration Piperacillin Sod/Tazobactam Sod 2.25 gm in 50 mls @ 100 mls/hr 04/21/23 11:00 04/21/23 11:28 Zosyn 2.25 Gm/Ns 50 Ml IVPB 100 mls/hr Q6HR SKYLER Administration Gentamicin Sulfate 255 mg/ 106.375 mls @ 100 mls/hr 04/21/23 09:10 Dextrose IVPB PRN PRN PER PROTOCOL Latanoprost 1 drop 04/17/23 21:00 04/20/23 21:15 Latanoprost 0.005% Op Soln 2.5 Ml Btl EACH EYE 1 drop HS SKYLER Administration Levothyroxine Sodium 75 mcg 04/19/23 06:30 04/21/23 06:02 Levothyroxine Sodium 75 Mcg Tablet PO 75 mcg DAILY@0630 SKYLER Administration Melatonin 5 mg 04/16/23 21:21 04/20/23 21:15 Melatonin 5 Mg Tablet PO 5 mg HS SKYLER Administration Methylphenidate HCl 10 mg 04/18/23 17:00 04/19/23 17:51 Methylphenidate Hcl (*Crx) 10 Mg Tablet PO 10 mg BID SKYLER Administration Metoprolol Tartrate 12.5 mg 04/19/23 09:00 04/21/23 12:31 Metoprolol Tartrate 12.5 Mg Tablet PO 12.5 mg QID
[2023-04-21 16:00] VITALS: BP 106/54; PULSE 94; RESP 16; TEMP 36.6; O2SAT 100
--- NOTE | 2023-04-21 17:04 | PM.IMPN ---
Progress Note: A&P Assessment and Plan (1) Bacteremia: Code(s): R78.81 - Bacteremia Status: Acute Assessment and Plan: Blood culture growing g variable bacilli from the anaerobic bottle only. Patient is postop day 5 from a fascial dehiscence repair that required small bowel resection. No fevers. She actually has been having leukopenia. Blood cultures were positive last admission a few weeks ago. She has been started on IV antibiotics. Will follow up on culture results. (2) Confusion: Code(s): R41.0 - Disorientation, unspecified Status: Acute Assessment and Plan: Patient still confused but without change today. Brain CT showing no acute findings. She was resumed on her methylphenidate and chart review shows that she has taken this in the past recently and it is a home medicine. We did stop this. CXR result noted but she elevated left hemidiaphragm and has persistent LLL consolidation. Will continue to follow (3) Evisceration of bowel: Status: Acute Assessment and Plan: Patient underwent incarcerated ventral hernia repair on 04/04/2023. During therapy, she felt a ?pop? 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 She underwent exploratory laparotomy, extensive lysis of adhesions, small-bowel resection including resection of previous anastomosis, abdominal washout and primary closure of fascial dehiscence on 04/16. Return of bowel function. Continue routine postop care. Continue PT/OT. (4) Edema: Code(s): R60.9 - Edema, unspecified Status: Acute Assessment and Plan: Patient with bilateral lower extremity edema. This was new since admission. Better after stopping IV fluids and one dose of lasix. Lower extremity venous Dopplers was negative for DVT. Blood pressure still soft at times so will hold on repeating the Lasix at this time. Continue Esequiel hose. (5) Atrial fibrillation: Qualifiers: Atrial fibrillation type: longstanding persistent Qualified Code(s): I48.11 - Longstanding persistent atrial fibrillation Code(s): I48.91 - Unspecified atrial fibrillation Status: Acute Assessment and Plan: EKG showing chronic AFib. Home metoprolol was resumed. Heart rate well controlled. Resume Eliquis when okay with surgery. (6) Hypertension: Code(s): I10 - Essential (primary) hypertension Status: Acute Assessment and Plan: Patient's blood pressure was reviewed on 04/21 Blood pressure remains soft at times Will continue to monitor (7) Anxiety: Code(s): F41.9 - Anxiety disorder, unspecified Status: Acute Assessment and Plan: Stable. Continue to follow. (8) GERD (gastroesophageal reflux disease): Qualifiers: Esophagitis presence: without esophagitis Qualified Code(s): K21.9 - Gastro-esophageal reflux disease without esophagitis Code(s): K21.9 - Gastro-esophageal reflux disease without esophagitis Status: Acute Assessment and Plan: Stable. Continue to monitor. Continue Pepcid. (9) Chronic neck pain: Code(s): M54.2 - Cervicalgia; G89.29 - Other chronic pain Status: Acute Assessment and Plan: Chronic and stable. Continue PT/OT Subjective Date/time seen: 04/21/23 17:04 Interval history: 87yo female with cAFib, HTN, MM and recent incarcerated ventral hernia repair on 04/04 here for evisceration of bowel. No abd pain. +BMs now. No n/v. Eating okay Exam Narrative: AF 97.8 106/54 94 16 100% ra Gen - NARD sitting at the side of the bed Chest - CTA bilaterally, nml RR CV - irregularly irregular. Abd - Soft, +BS, incision clean, dry and intact. Ext - 1+ pedal edema with Esequiel hose in place Neuro - AOx2 (location, year but not month or colette) Psych - Nml mood and affect Skin - Warm and dry Objective Data Vital Signs Vital Signs: Vital Signs - 24 hr 04/20/23 17:07 04/20/23 22:26
[2023-04-21 17:16] VITALS: PULSE 79
[2023-04-21] MEDS: ACETAMINOPHEN 325 MG TABLET 650 MG PO (17:22)
[2023-04-21] MEDS: HYDROcodone/acetaminophen (*CRX) 5-325 MG TABLET 1 TAB PO (20:17)
[2023-04-21] MEDS: MELATONIN 5 MG TABLET PO (20:17)
[2023-04-21] MEDS: LATANOPROST 0.005% OP SOLN 2.5 ML BTL 1 DROP EACH EYE (20:18)
[2023-04-21 21:37] VITALS: BP 113/55; PULSE 82; RESP 20; TEMP 36.6; O2SAT 96
[2023-04-21 21:54] LABS: Gentamicin Random 4.4 ug/mL (5.0-12.0)
[2023-04-22] VITALS (7 sets, daily range): BP systolic 104–107; BP diastolic 48–86; PULSE 68–91; RESP 16–20; TEMP 36.1–36.9; O2SAT 94–98
[2023-04-22] MEDS: PIPERACILLIN/TAZ 2.25G/NS 50ML 2.25 GM/50 ML BAG IVPB ×4 (00:45→17:08)
[2023-04-22] MEDS: LEVOTHYROXINE SODIUM 75 MCG TABLET PO (05:56)
[2023-04-22 07:41] LABS: Albumin Level 2.2 g/dL (3.5-5.1); Anion Gap 5 mmol/L (8-16); Blood Urea Nitrogen 14 mg/dL (7-17); Calcium 7.3 mg/dL (8.4-10.2); Carbon Dioxide 24 mmol/L (22-30); Chloride 105 mmol/L (98-107); Estimated CRCL calculation 37 ml/min; Estimated Glomerular Filt Rate > 60; Glucose 82 mg/dL (65-110); Magnesium 2.2 mg/dL (1.6-2.3); Phosphorus 3.7 mg/dL (2.5-4.5); Potassium 4.1 mmol/L (3.4-5.0); Sodium 134 mmol/L (137-145)
[2023-04-22] MEDS: ENOXAPARIN 40 MG/0.4 ML SYRINGE SUB-Q (08:23)
[2023-04-22] MEDS: GABAPENTIN 400 MG CAPSULE 800 MG PO ×3 (08:23→17:08)
[2023-04-22] MEDS: FAMOTIDINE 20 MG/2 ML VIAL IV PUSH ×2 (08:23→20:53)
[2023-04-22] MEDS: METOPROLOL TARTRATE 12.5 MG TABLET PO ×4 (08:23→20:53)
[2023-04-22 09:28] LABS: Basophils Percent Auto 0.5 % (0.2-1.2); Hematocrit 32.4 % (37.0-47.0); Hemoglobin 9.3 g/dL (12.0-15.0); Lymphocytes Absolute Auto 1.46 K/mm3 (0.9-3.2); Lymphocytes Percent Auto 37.7 % (18.3-44.2); Mean Corpuscular HGB Conc 28.7 g/dl (32-36); Mean Corpuscular Hemoglobin 32.9 pg (26-34); Mean Corpuscular Volume 114.5 fl (80-100); Mean Platelet Volume 9.2 fl (7.4-10.4); Monocytes Absolute Auto 0.2 K/mm3 (0.1-0.6); Monocytes Percent Auto 5.2 % (2.6-8.5); Neutrophils Absolute Auto 2.2 K/mm3 (1.3-6.7); Neutrophils Percent Auto 55.6 % (45.5-73.1); Platelet Count Result 152 k/mm3 (150-375); Red Blood Count 2.83 M/mm3 (4.2-5.4); Red Cell Distribution Width 18.6 % (11.5-14.5); White Blood Count 3.9 K/mm3 (4.5-10.0)
--- NOTE | 2023-04-22 09:52 | PM.PNGS ---
Progress Note: A&P Assessment and Plan (1) Evisceration of bowel: Status: Acute Assessment and Plan: Will delay discharge until culture sensitivities return. Patient surgically doing well and tolerating diet. OK to resume Eliquis. (2) Bacteremia: Code(s): R78.81 - Bacteremia Status: Acute Assessment and Plan: Blood culture from 04/19/2023 is coming back positive. Sensitivities are still pending. Zosyn and gentamicin started today. Source could be GI due to bowel perforation and need for bowel resection with both recent surgeries. Will hopefully be able to discharge on oral antibiotics once sensitivities are returned. Subjective Subjective Date/Time Seen: 04/22/23 09:52 Interval history: Doing well. Tolerating diet. Bowels moving. Not much abdominal pain. No fevers. Having some confusion. Exam Const: General: comfortable and no acute distress Resp: Effort & Inspection: normal respiratory effort Auscultation: clear to auscultation bilaterally Cardio: Rate: regular rate Rhythm: regular rhythm Heart sounds: S1 normal heart sound present and S2 normal heart sound present GI: Inspection: non-distended and incision (Intact with halina) GI Palp: Yes Soft to palpation, No Tenderness to palpation present (GI) and No Guarding due to palpation present (GI) Auscultation: normal bowel sounds Objective Data Vital Signs Vital Signs: Vital Signs - 24 hr 04/21/23 12:31 04/21/23 16:00 04/21/23 17:16 Temperature 36.6 C Pulse Rate 83 94 79 Respiratory Rate 16 Blood Pressure 106/54 L Pulse Oximetry 100 Oxygen Delivery 04/21/23 20:00 04/21/23 21:37 04/22/23 05:00 Temperature 36.6 C 36.1 C L Pulse Rate 82 82 Respiratory Rate 20 20 Blood Pressure 113/55 L 104/54 L Pulse Oximetry 96 94 Oxygen Delivery Room Air 04/22/23 08:23 Temperature Pulse Rate 84 Respiratory Rate Blood Pressure Pulse Oximetry Oxygen Delivery Intake/Output Intake/Output: Intake & Output 04/19/23 04/20/23 04/21/23 04/22/23 23:59 23:59 23:59 23:59 Intake Total 1190 1270 1016.375 370 Output Total 1200 800 Balance -10 470 1016.375 370 Meds/Results Medications: Active Medications Generic Name Dose Route Start Last Admin Trade Name Freq PRN Reason Stop Dose Admin Acetaminophen 650 mg 04/18/23 12:57 04/21/23 17:22 Acetaminophen 325 Mg Tablet PO 650 mg Q6H PRN Administration Mild Pain (1-3) or Fever Hydrocodone Bitart/Acetaminophen 1 tab 04/18/23 12:57 04/21/23 20:17 Hydrocodone/Acetaminophen (*Crx) 5-325 Mg Tablet PO 1 tab Q6H PRN Administration Pain Rated 4-6 Enoxaparin Sodium 40 mg 04/17/23 09:00 04/22/23 08:23 Enoxaparin 40 Mg/0.4 Ml Syringe SUB-Q 40 mg DAILY SKYLER Administration Famotidine 20 mg 04/16/23 21:00 04/22/23 08:23 Famotidine 20 Mg/2 Ml Vial IV PUSH 20 mg Q12HR SKYLER Administration Gabapentin 800 mg 04/19/23 09:00 04/22/23 08:23 Gabapentin 400 Mg Capsule PO 800 mg TID SKYLER Administration Piperacillin Sod/Tazobactam Sod 2.25 gm in 50 mls @ 100 mls/hr 04/21/23 11:00 04/22/23 05:56 Zosyn 2.25 Gm/Ns 50 Ml IVPB 100 mls/hr Q6HR SKYLER Administration Gentamicin Sulfate 255 mg/ 106.375 mls @ 100 mls/hr 04/22/23 12:00 Dextrose IVPB Q24H SKYLER Latanoprost 1 drop 04/17/23 21:00 04/21/23 20:18 Latanoprost 0.005% Op Soln 2.5 Ml Btl EACH EYE 1 drop HS SKYLER Administration Levothyroxine Sodium 75 mcg 04/19/23 06:30 04/22/23 05:56 Levothyroxine Sodium 75 Mcg Tablet PO 75 mcg DAILY@0630 SKYLER Administration Melatonin 5 mg 04/16/23 21:21 04/21/23 20:17 Melatonin 5 Mg Tablet PO 5 mg HS SKYLER Administration Methylphenidate HCl 10 mg 04/18/23 17:00 04/19/23 17:51 Methylphenidate Hcl (*Crx) 10 Mg Tablet PO 10 mg BID SKYLER Administration Metoprolol Tartrate 12.5 mg 04/19/23 09:00 04/22/23 08:23 Metoprolol Tartrate 12.5 Mg Tablet PO 12.5 mg
[2023-04-22 10:26] LABS: Crenated RBC 1+ (NORMAL); Platelet Estimate Adequate (Adequate); Poikilocytosis 1+ (NORMAL); Schistocytes Rare (NORMAL)
--- NOTE | 2023-04-22 13:15 | PM.IMPN ---
Progress Note: A&P Assessment and Plan (1) Bacteremia: Code(s): R78.81 - Bacteremia Status: Acute Assessment and Plan: Awaiting culture results with sensitivities ? Home with antibiotics orally (2) Confusion: Code(s): R41.0 - Disorientation, unspecified Status: Acute Assessment and Plan: Patient still confused but without change today. Brain CT showing no acute findings. She was resumed on her methylphenidate and chart review shows that she has taken this in the past recently and it is a home medicine. We did stop this. CXR result noted but she elevated left hemidiaphragm and has persistent LLL consolidation. Will continue to follow (3) Evisceration of bowel: Status: Acute Assessment and Plan: Patient underwent incarcerated ventral hernia repair on 04/04/2023. During therapy, she felt a ?pop? 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 She underwent exploratory laparotomy, extensive lysis of adhesions, small-bowel resection including resection of previous anastomosis, abdominal washout and primary closure of fascial dehiscence on 04/16. Return of bowel function. Continue routine postop care. Continue PT/OT. (4) Edema: Code(s): R60.9 - Edema, unspecified Status: Acute Assessment and Plan: Patient with bilateral lower extremity edema. This was new since admission. Better after stopping IV fluids and one dose of lasix. Lower extremity venous Dopplers was negative for DVT. Blood pressure still soft at times so will hold on repeating the Lasix at this time. Continue Esequiel hose. (5) Atrial fibrillation: Qualifiers: Atrial fibrillation type: longstanding persistent Qualified Code(s): I48.11 - Longstanding persistent atrial fibrillation Code(s): I48.91 - Unspecified atrial fibrillation Status: Acute Assessment and Plan: EKG showing chronic AFib. Home metoprolol was resumed. Heart rate well controlled. Resume Eliquis when okay with surgery. (6) Hypertension: Code(s): I10 - Essential (primary) hypertension Status: Acute Assessment and Plan: Patient's blood pressure was reviewed on 04/21 Blood pressure remains soft at times Will continue to monitor (7) Anxiety: Code(s): F41.9 - Anxiety disorder, unspecified Status: Acute Assessment and Plan: Stable. Continue to follow. (8) GERD (gastroesophageal reflux disease): Qualifiers: Esophagitis presence: without esophagitis Qualified Code(s): K21.9 - Gastro-esophageal reflux disease without esophagitis Code(s): K21.9 - Gastro-esophageal reflux disease without esophagitis Status: Acute Assessment and Plan: Stable. Continue to monitor. Continue Pepcid. (9) Chronic neck pain: Code(s): M54.2 - Cervicalgia; G89.29 - Other chronic pain Status: Acute Assessment and Plan: Chronic and stable. Continue PT/OT Subjective Date/time seen: 04/22/23 13:15 Interval history: No new complaints Exam Narrative: AF 97.8 106/54 94 16 100% ra Gen - NARD sitting at the side of the bed Chest - CTA bilaterally, nml RR CV - irregularly irregular. Abd - Soft, +BS, incision clean, dry and intact. Ext - 1+ pedal edema with Esequiel hose in place Neuro - AOx2 (location, year but not month or colette) Psych - Nml mood and affect Skin - Warm and dry Objective Data Vital Signs Vital Signs: Vital Signs - 24 hr 04/21/23 16:00 04/21/23 17:16 04/21/23 20:00 Temperature 97.8 F Pulse Rate 94 79 Respiratory Rate 16 Blood Pressure 106/54 L Pulse Oximetry 100 Oxygen Delivery Room Air 04/21/23 21:37 04/22/23 05:00 04/22/23 08:23 Temperature 98 F 96.9 F L Pulse Rate 82 82 84 Respiratory Rate 20 20 Blood Pressure 113/55 L 104/54 L Pulse Oximetry 96 94 Oxygen Delivery 04/22/23 12:46 Temperature Pulse Rate 71 Respiratory Rate Blood
[2023-04-22] MEDS: LATANOPROST 0.005% OP SOLN 2.5 ML BTL 1 DROP EACH EYE (20:53)
[2023-04-22] MEDS: MELATONIN 5 MG TABLET PO (20:53)
[2023-04-23 00:02] LABS: Gentamicin Random 5.4 ug/mL (5.0-12.0)
[2023-04-23] MEDS: PIPERACILLIN/TAZ 2.25G/NS 50ML 2.25 GM/50 ML BAG IVPB ×3 (00:44→12:28)
[2023-04-23] MEDS: LEVOTHYROXINE SODIUM 75 MCG TABLET PO (05:35)
[2023-04-23 05:59] VITALS: BP 119/67; PULSE 79; RESP 18; TEMP 36.4; O2SAT 100
[2023-04-23 06:38] LABS: Estimated CRCL calculation 37 ml/min; Estimated Glomerular Filt Rate > 60
[2023-04-23 08:00] VITALS: PULSE 86; O2SAT 100
[2023-04-23] MEDS: APIXABAN 2.5 MG TABLET PO (08:30)
[2023-04-23] MEDS: GABAPENTIN 400 MG CAPSULE 800 MG PO ×2 (08:30→12:31)
[2023-04-23 08:31] VITALS: PULSE 86
[2023-04-23] MEDS: FAMOTIDINE 20 MG/2 ML VIAL IV PUSH (08:31)
[2023-04-23] MEDS: METOPROLOL TARTRATE 12.5 MG TABLET PO ×2 (08:31→12:31)
--- NOTE | 2023-04-23 09:32 | PM.DS ---
DS: Admitting Diagnosis Discharge Date 04/23/2023 Admitting Diagnosis fascial dehiscence, evisceration of small bowel DS: Discharge Diagnosis Discharge Diagnosis (1) Evisceration of bowel: Status: Acute Assessment and Plan: cont routine postop care, light activity restrictions, home PT/OT (2) Bacteremia: Code(s): R78.81 - Bacteremia Status: Acute Assessment and Plan: Flagyl and Augmenting x 10 days (3) GERD (gastroesophageal reflux disease): Qualifiers: Esophagitis presence: without esophagitis Qualified Code(s): K21.9 - Gastro-esophageal reflux disease without esophagitis Code(s): K21.9 - Gastro-esophageal reflux disease without esophagitis Status: Acute (4) Hypertension: Code(s): I10 - Essential (primary) hypertension Status: Acute (5) Atrial fibrillation with rapid ventricular response: Code(s): I48.91 - Unspecified atrial fibrillation Status: Acute DS: Summary Hospital Course Reason for hospitalization: fasical dehiscence, evisceration Hospital Course: This is an 87-year-old woman who presented with findings of a wound dehiscence and evisceration of bowel from recent surgery.? She had originally undergone open small-bowel resection and repair of left lower quadrant strangulated hernia by Dr. Barba on 04/04/2023.? She was then discharged from the hospital to acute rehab.? She was performing physical therapy at rehab when she felt a pop and had some drainage from her incision.? She was seen by Dr. Barba in the office shortly after this happened on 04/16/2023.? She was found to have a wound dehiscence with evisceration of bowel and was then taken emergently for surgery on 04/16.? She underwent small bowel resection and fascial closure of dehiscence.? She was then admitted to the surgical floor postoperatively.? She was started on clear liquids initially postop and then was advanced to full liquid diet on 04/18/2023.? Hospitalist was consulted to help with medical management.? She was advanced to a soft regular diet on 04/19/2023.? She was having some increased confusion that afternoon and a CT of her head was performed.? This showed no acute changes.? Her confusion did seem to improve slightly.? She was remaining hemodynamically stable and was given some laxatives to help with return of bowel function.? Her bowels moved on 04/20/2023.? She was tolerating a solid diet without any nausea or vomiting.? She was found to have positive blood cultures and restarted on IV abx. She cont to improve over the weekend and will now be transitioned to po abx for an additional 10 days as per recommendation via ID pharmacist. Pt will be discharged home with home health. Status at Discharge Functional status at discharge: uses cane/walker Overall status at discharge: patient is progressing back to baseline Time Spent with Patient Time attestation: Total time spent providing and/or coordinating discharge services: Time spent: Less than 30 minutes Exam Const: General: cooperative, comfortable and no acute distress Resp: Auscultation: clear to auscultation bilaterally Cardio: Rate: regular rate Rhythm: regular rhythm GI: Inspection: normal to inspection, non-distended and incision GI Palp: No abdominal tenderness, Yes Soft to palpation and No Tenderness to palpation present (GI) DS: Data Data Completed and Pending Completed studies during hospitalization: Pending at discharge 04/16/23 17:23 Surgical [PTH] Routine Labs on day of discharge: Labs from last 24 hours 04/23/23 04/22/23 04/22/23 06:18 23:15 09:23 WBC 3.9 L RBC 2.83 L Hgb 9.3 L Hct 32.4 L MCV 114.5 H D MCH 32.9 MCHC 28.7 L RDW 18.6 H Plt Count 152 MPV 9.2 Immature Gran % (Auto) 0.0 Neut % (Auto) 55.6 Lymph % (Auto) 37.7 [place] % (Auto) 5.2 Eos % (Auto) 1.0 Baso % (Auto) 0.5 Lymph # (Auto) 1.46 [place] # (Auto) 0.2 Eos # (Auto
--- NOTE | 2023-04-23 11:01 | PM.IMPN ---
Progress Note: A&P Assessment and Plan (1) Bacteremia: Code(s): R78.81 - Bacteremia Status: Acute Assessment and Plan: Culture results noted. Spoke with ID pharmacist. Recommended Flagyl and Augmentin on discharge (2) Confusion: Code(s): R41.0 - Disorientation, unspecified Status: Acute Assessment and Plan: Patient still confused but without change today. Brain CT showing no acute findings. She was resumed on her methylphenidate and chart review shows that she has taken this in the past recently and it is a home medicine. We did stop this. CXR result noted but she elevated left hemidiaphragm and has persistent LLL consolidation. Will continue to follow (3) Evisceration of bowel: Status: Acute Assessment and Plan: Patient underwent incarcerated ventral hernia repair on 04/04/2023. During therapy, she felt a ?pop? 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 She underwent exploratory laparotomy, extensive lysis of adhesions, small-bowel resection including resection of previous anastomosis, abdominal washout and primary closure of fascial dehiscence on 04/16. Return of bowel function. Continue routine postop care. Continue PT/OT. (4) Edema: Code(s): R60.9 - Edema, unspecified Status: Acute Assessment and Plan: Patient with bilateral lower extremity edema. This was new since admission. Better after stopping IV fluids and one dose of lasix. Lower extremity venous Dopplers was negative for DVT. Blood pressure still soft at times so will hold on repeating the Lasix at this time. Continue Esequiel hose. (5) Atrial fibrillation: Qualifiers: Atrial fibrillation type: longstanding persistent Qualified Code(s): I48.11 - Longstanding persistent atrial fibrillation Code(s): I48.91 - Unspecified atrial fibrillation Status: Acute Assessment and Plan: EKG showing chronic AFib. Home metoprolol was resumed. Heart rate well controlled. Resume Eliquis when okay with surgery. (6) Hypertension: Code(s): I10 - Essential (primary) hypertension Status: Acute Assessment and Plan: Patient's blood pressure was reviewed on 04/21 Blood pressure remains soft at times Will continue to monitor (7) Anxiety: Code(s): F41.9 - Anxiety disorder, unspecified Status: Acute Assessment and Plan: Stable. Continue to follow. (8) GERD (gastroesophageal reflux disease): Qualifiers: Esophagitis presence: without esophagitis Qualified Code(s): K21.9 - Gastro-esophageal reflux disease without esophagitis Code(s): K21.9 - Gastro-esophageal reflux disease without esophagitis Status: Acute Assessment and Plan: Stable. Continue to monitor. Continue Pepcid. (9) Chronic neck pain: Code(s): M54.2 - Cervicalgia; G89.29 - Other chronic pain Status: Acute Assessment and Plan: Chronic and stable. Continue PT/OT Subjective Date/time seen: 04/23/23 11:01 Interval history: No new complaints Exam Narrative: AF 97.8 106/54 94 16 100% ra Gen - NARD sitting at the side of the bed Chest - CTA bilaterally, nml RR CV - irregularly irregular. Abd - Soft, +BS, incision clean, dry and intact. Ext - 1+ pedal edema with Esequiel hose in place Neuro - AOx2 (location, year but not month or colette) Psych - Nml mood and affect Skin - Warm and dry Objective Data Vital Signs Vital Signs: Vital Signs - 24 hr 04/22/23 12:46 04/22/23 14:00 04/22/23 17:08 Temperature 98.4 F Pulse Rate 71 91 68 Respiratory Rate 16 Blood Pressure 107/86 Pulse Oximetry 98 Oxygen Delivery 04/22/23 20:53 04/22/23 22:58 04/23/23 05:59 Temperature 97.7 F 97.6 F Pulse Rate 72 76 79 Respiratory Rate 18 18 Blood Pressure 104/48 L 119/67 Pulse Oximetry 98 100 Oxygen Delivery 04/23/23 08:31 04/23/23 08:00 Temperature Pulse Rate 86
[2023-04-23 12:31] VITALS: PULSE 80
[2023-04-23 13:31] VITALS: BP 103/78; PULSE 56; RESP 18; TEMP 36.1; O2SAT 99
[2023-04-23 15:12] LABS: SARS-CoV-2 RNA PCR Negative (Negative)
== END 2023-04-23 15:50 | DRG 908 ==
PROVIDERS: Chiropractor; Internal Medicine; Nurse Practitioner; Surgery; Admitting Provider Surgery; PCP Family Medicine; Visit Provider Surgery
PROC: 0DB80ZZ Excision of Small Intestine, Open Approach (ICD-10-PCS; principal; 2023-04-16 15:30)
DX: T81.32XA Disruption of internal operation (surgical) wound, not elsewhere classified, initial encounter (principal); I48.20 Chronic atrial fibrillation, unspecified; K91.89 Other postprocedural complications and disorders of digestive system; R78.81 Bacteremia; Z20.822 Contact with and (suspected) exposure to COVID-19; K21.9 Gastro-esophageal reflux disease without esophagitis; I48.91 Unspecified atrial fibrillation; I10 Essential (primary) hypertension; H40.9 Unspecified glaucoma; F41.9 Anxiety disorder, unspecified; G89.4 Chronic pain syndrome; Z86.718 Personal history of other venous thrombosis and embolism; Z86.711 Personal history of pulmonary embolism
CPT/HCPCS: 36415; 70450; 71045; 80048; 80069; 80170; 81003; 82565; 83605; 83735; 85025; 85027; 87040; 87077; 87635; 88307; 88342; 93970; 97110; 97116; 97161; 97165; 97530; 97535; A9270; G0378; J0330; J0456; J0690; J0696; J1100; J1580; J1650; J1940; J2270; J2405; J2543; J2704; J3010; J7120